=== PATIENT | male | born 1955 | race Caucasian/White ===

== ENCOUNTER 2017-06-25 12:14 | Emergency (ER) | payer BC ==
[2017-06-25 12:27] VITALS: BP 148/78
[2017-06-25] MEDS ORDERED: Sodium Chloride 0.9% 10 ML Syringe FLUSH PRN (12:33)
[2017-06-25] MEDS ORDERED: Nitroglycerin 0.4 MG Tab.SL SL PRN (12:33)
[2017-06-25] MEDS ORDERED: Aspirin 81 MG Tab.Chew PO ONE (12:33)
--- NOTE | 2017-06-25 12:40 | EDM.PDOC ---
ED HPI GENERAL MEDICAL PROBLEM - General Chief Complaint: Chest Pain Stated Complaint: Chest pain Time Seen by Provider: 06/25/17 12:20 Source of Information: Reports: Patient, RN Notes Reviewed History Limitations: Reports: No Limitations - History of Present Illness INITIAL COMMENTS - FREE TEXT/NARRATIVE: 62 year old male presents to the ED with complaints of substernal, sharp, chest pain that radiates into his left shoulder and upper arm. The symptoms started around 1030 this morning and have been constant. He rates the pain 9/10. He denies associated fever, chills, nausea, vomiting, shortness of breath, pleuritic chest pain, or diaphoresis. No aggravating or alleviating factors. He did not take any aspirin. He has a history of asthma, diagnosed in when he was 28 years old, and says for the past week he's had mild, intermittent chest pain when going outside in the smoky air. This was alleviated by coming inside. Today the pain is more sever and persistent. He denies history of heart problems or heart attack. He does not smoke. No history of CAD or high cholesterol. He says his only medical history is asthma. Chest Pain Score (Numeric/FACES): 8 - Related Data Allergies Allergy/AdvReac Type Severity Reaction Status Date / Time No Known Allergies Allergy Verified 06/25/17 12:20 Past Medical History Respiratory History: Reports: Asthma - Past Surgical History GI Surgical History: Reports: Cholecystectomy Social & Family History - Tobacco Use Smoking Status *Q: Never Smoker - Caffeine Use Caffeine Use: Reports: Coffee - Recreational Drug Use Recreational Drug Use: No ED ROS GENERAL - Review of Systems Review Of Systems: See Below Constitutional: Reports: No Symptoms. Denies: Fever, Chills, Diaphoresis Respiratory: Reports: No Symptoms. Denies: Shortness of Breath, Wheezing, Pleuritic Chest Pain, Cough Cardiovascular: Reports: Chest Pain. Denies: Dyspnea on Exertion, Edema, Lightheadedness, Syncope GI/Abdominal: Reports: No Symptoms. Denies: Abdominal Pain, Nausea, Vomiting ED EXAM, GENERAL - Physical Exam Exam: See Below Exam Limited By: No Limitations General Appearance: Alert, WD/WN, Anxious, Moderate Distress Respiratory/Chest: No Respiratory Distress, Lungs Clear, Normal Breath Sounds, No Accessory Muscle Use, Chest Non-Tender Cardiovascular: Normal Peripheral Pulses, Regular Rate, Rhythm, No Edema, No Murmur GI/Abdominal: Normal Bowel Sounds, Soft, Non-Tender Neurological: Alert, Oriented, Normal Cognition EKG INTERPRETATION EKG Date: 06/25/17 Time: 12:23 Rhythm: NSR Rate (Beats/Min): 79 [place]: Normal P-Wave: Present QRS: Normal ST-T: Other QT: Normal EKG Interpretation Comments: EKG read by Dr. Black. Reveals diffuse early repolarization pattern. T wave inversion AVL. ST depression in lead I. probable ischemia. Mild ST depression V4 -V6. Course - Vital Signs Last Recorded V/S: Last Vital Signs Temp 96.9 F 06/25/17 12:20 Pulse 84 06/25/17 12:20 Resp 23 H 06/25/17 12:20 BP 148/78 H 06/25/17 12:38 Pulse Ox 100 06/25/17 13:53 - Orders/Labs/Meds Orders: Active Orders 24 hr Category Date Time Status Cardiac Monitoring [RC] . DIRECTED Care 06/25/17 12:34 Active EKG 12 Lead [EKG Documentation Completion] [RC] Care 06/25/17 15:30 Active ASDIRECTED Peripheral IV Care [RC] . DIRECTED Care 06/25/17 12:33 Active Peripheral IV Insertion Adult [OM.PC] Stat Oth 06/25/17 12:33 Ordered Labs: Laboratory Tests 06/25/17 06/25/17 06/25/17 Range/Units 12:35 12:35 12:35 WBC 7.67 (4.23-9.07) K/mm3 RBC 4.99 (4.63-6.08) M/mm3 Hgb 15.5 (13.7-17.5) gm/L Hct 45.5 (40.1-51.0) % MCV 91.2 (79.0-92.2) fl MCH 31.1 (25.7-32.2) pg MCHC 34.1 (32.2-35.5) g/dl RDW Std Deviation 44.9 H (35.1-43.9) fL Plt Count 216 (163-337) K/mm3 MPV 10.2 (9.4-12.3) fl Neut % (Auto) 68.6 H (34.0-67.9) % Lymph % (Auto) 20.9 L (21.8-53.1) % [place] % (Auto) 8.2 (5.3-12.2) % Eos % (Auto) 1.6 (0.8-7.0) Baso % (Auto) 0.3 (0.1-1.2) % Neut # (Auto) 5.27 (1.78-5.38) K/mm3 Lymph # (Auto) 1.60 (1.32-3.57) K/mm3 [place] # (Auto) 0.63 (0.30-0.82) K/mm3 Eos # (Auto) 0.12 (0.04-0.54) K/mm3 Baso # (Auto) 0.02 (0.01-0.08) K/mm3 PT (8.0-13.0) SECONDS INR D-Dimer, Quantitative 0.20 (0.19-0.59) mg/L Sodium 141 (136-145) mEq/L Potassium 4.3 (3.5-5.1) mEq/L Chloride 105 (98-107) mEq/L Carbon Dioxide 29 (21-32) mEq/L Anion Gap 11.3 (5-15) BUN 16 (7-18) mg/dL Creatinine 1.3 (0.7-1.3) mg/dL Est Cr Clr Drug Dosing 61.14 mL/min Estimated GFR (MDRD) 56 (>60) mL/min BUN/Creatinine Ratio 12.3 L (14-18) Glucose 105 (80-115) mg/dL Calcium 9.0 (8.5-10.1) mg/dL Total Bilirubin 0.4 (0.2-1.0) mg/dL AST 8 L (15-37) U/L ALT 32 (16-63) U/L Alkaline Phosphatase 77 (46-116) U/L Troponin I 0.027 (0.00-0.056) ng/mL Total Protein 7.4 (6.4-8.2) g/dl Albumin 3.7 (3.4-5.0) g/dl Globulin 3.7 gm/dL Albumin/Globulin Ratio 1.0 (1-2) 06/25/17 06/25/17 Range/Units 12:35 15:30 WBC (4.23-9.07) K/mm3 RBC (4.63-6.08) M/mm3 Hgb (13.7-17.5) gm/L Hct (40.1-51.0) % MCV (79.0-92.2) fl MCH (25.7-32.2) pg MCHC (32.2-35.5) g/dl RDW Std Deviation (35.1-43.9) fL Plt Count (163-337) K/mm3 MPV (9.4-12.3) fl Neut % (Auto) (34.0-67.9) % Lymph % (Auto) (21.8-53.1) % [place] % (Auto) (5.3-12.2) % Eos % (Auto) (0.8-7.0) Baso % (Auto) (0.1-1.2) % Neut # (Auto) (1.78-5.38) K/mm3 Lymph # (Auto) (1.32-3.57) K/mm3 [place] # (Auto) (0.30-0.82) K/mm3 Eos # (Auto) (0.04-0.54) K/mm3 Baso # (Auto) (0.01-0.08) K/mm3 PT 10.3 (8.0-13.0) SECONDS INR 0.95 D-Dimer, Quantitative (0.19-0.59) mg/L Sodium (136-145) mEq/L Potassium (3.5-5.1) mEq/L Chloride (98-107) mEq/L Carbon Dioxide (21-32) mEq/L Anion Gap (5-15) BUN (7-18) mg/dL Creatinine (0.7-1.3) mg/dL Est Cr Clr Drug Dosing mL/min Estimated GFR (MDRD) (>60) mL/min BUN/Creatinine Ratio (14-18) Glucose (80-115) mg/dL Calcium (8.5-10.1) mg/dL Total Bilirubin (0.2-1.0) mg/dL AST (15-37) U/L ALT (16-63) U/L Alkaline Phosphatase (46-116) U/L Troponin I 0.110 H* (0.00-0.056) ng/mL Total Protein (6.4-8.2) g/dl Albumin (3.4-5.0) g/dl Globulin gm/dL Albumin/Globulin Ratio (1-2) Meds: Medications Discontinued Medications Generic Name Dose Route Start Last Admin Trade Name Freyeny PRN Reason Stop Dose Admin Albuterol Confirm 06/25/17 13:53 06/25/17 13:53 Proventil Neb Soln Administered 06/25/17 13:54 2.5 mg Dose Administration 2.5 mg .ROUTE .STK-MED ONE Aspirin 324 mg 06/25/17 12:33 06/25/17 12:39 Aspirin PO 06/25/17 12:34 324 mg ONETIME ONE Administration Enoxaparin Sodium 80 mg 06/25/17 16:26 06/25/17 16:35 Lovenox SUBCUT 06/25/17 16:27 80 mg ONETIME ONE Administration Sodium Chloride 250 mls @ 999 mls/hr 06/25/17 12:55 06/25/17 13:29 Normal Saline IV 06/25/17 13:10 999 mls/hr ONETIME ONE Administration Sodium Chloride 1,000 mls @ 150 mls/hr 06/25/17 12:55 06/25/17 13:47 Normal Saline IV 06/25/17 19:34 150 mls/hr ONETIME ONE Administration Nitroglycerin/Dextrose 25 mg in 250 mls @ 6 mls/hr 06/25/17 16:45 06/25/17 16 :48 Nitroglycerin 25 Mg/D5w 250 Ml IV 10 mcg/min TITRATE AMBROSIO 6 mls/hr Protocol Administration 10 MCG/MIN Lorazepam 0.5 mg 06/25/17 12:50 06/25/17 12:57 Ativan IVPUSH 06/25/17 12:51 0.5 mg ONETIME ONE Administration Lorazepam Confirm 06/25/17 12:53 06/25/17 13:32 Ativan Administered 06/25/17 12:54 Not Given Dose 2 mg .ROUTE .STK-MED ONE Nitroglycerin 0.4 mg 06/25/17 12:33 06/25/17 12:38 Nitrostat SL 0.4 mg Q5M PRN Administration Chest Pain Sodium Chloride 10 ml 06/25/17 12:33 06/25/17 13:32 Saline Flush FLUSH 10 ml ASDIRECTED PRN Administration Keep Vein Open - Re-Assessments/Exams Free Text/Narrative Re-Assessment/Exam: Initial workup included CBC, CMP, Troponin, d-dimer, and PT/INR. All initial labs were WNL. Initial EKG revealed ST depression in lateral leads, suspicious for ischemia. Dr. Black recommended treating with nitroglycerin due to possibility of IL. Patient was given Nitro 0.4mg SL x1 dose and droopped his BP in the 50s systolic. He was put in trendelenberg and BP quickly improved to low 100s. The patient then became very anxious and began to hyperventilate. The said he has a history of panic attacks. He was given 0.5mg of IV Ativan and symptoms improved quickly. 1620 Patient was kept for 3 hour cardiac rule-out. Repeat 3 hour troponin was drawn at 1530. Repeat troponin came back at 0.110. Repeat EKG read by Dr. Black and is essentially unchanged. Patient and family notified of findings and need for transfer. They do not have a preference regarding which hospital they would prefer. Questions answered to the best of my ability. I spoke to [facility] T[employer] Dr. Figueroa at [facility]. She recommended that we give Lovenox 1mg/kg x1 now and transfer. I then spoke to Hospitalist Dr. Hall who is the accepting provider. Patient will be transferred by ambulance to [facility]. Patient continues to have chest pain ranging from 1-4/10. Discussed with Dr. Black who recommends that we start a nitro drip at 10mcg/min. Departure - Departure Time of Disposition: 16:36 Disposition: DC/Tfer to Acute Hospital 02 Reason for Transfer *Q: Primary PCI Indicated Condition: Good Clinical Impression: NSTEMI (non-ST elevated myocardial infarction) Referrals: Noe Cedillo MD [Primary Care Provider] - Forms: ED Department Discharge - My Orders Last 24 Hours: My Active Orders 06/25/17 12:33 Peripheral IV Care [RC] . DIRECTED Peripheral IV Insertion Adult [OM.PC] Stat 06/25/17 12:34 Cardiac Monitoring [RC] . DIRECTED 06/25/17 15:30 EKG 12 Lead [EKG Documentation Completion] [RC] ASDIRECTED - Assessment/Plan Last 24 Hours: My Active Orders 06/25/17 12:33 Peripheral IV Care [RC] . DIRECTED Peripheral IV Insertion Adult [OM.PC] Stat 06/25/17 12:34 Cardiac Monitoring [RC] . DIRECTED 06/25/17 15:30 EKG 12 Lead [EKG Documentation Completion] [RC] ASDIRECTED
[2017-06-25] MEDS ORDERED: LORazepam 2 MG/ML MDV IVPUSH ONE (12:50)
[2017-06-25] MEDS ORDERED: LORazepam 2 MG/ML MDV ONE (12:53)
[2017-06-25] MEDS ORDERED: Sodium Chloride 0.9% 250 ML IV ONE (12:55)
[2017-06-25] MEDS ORDERED: Sodium Chloride 0.9% 1,000 ML IV ONE (12:55)
--- NOTE | 2017-06-25 13:19 | CR ---
Chest: Portable view of the chest is obtained. Comparison: Previous chest x-ray of 09/09/13. Heart size and mediastinum are within normal limits. Nodular density seen within the left mid to upper chest most likely due to overlapping lung markings. Lungs otherwise are clear. Bony structures are grossly intact. Impression: 1. Nodule within the mid to upper lung most likely due to confluence of lung markings although noncontrast chest CT is recommended to confirm. 2. Nothing acute is otherwise seen. Diagnostic code #9
[2017-06-25] MEDS ORDERED: Albuterol 0.083% 2.5 MG/3 ML Neb Soln ONE (13:53)
[2017-06-25] MEDS ORDERED: Enoxaparin 80 MG/0.8 ML Syringe SUBCUT ONE (16:26)
[2017-06-25] MEDS ORDERED: Nitroglycerin/D5W 25 MG/250 ML BOTTLE IV SCH (16:45)
== END 2017-06-25 17:03 ==
LOC: JD.ED 12:14
DX: I21.4 Non-ST elevation (NSTEMI) myocardial infarction (principal); Z90.49 Acquired absence of other specified parts of digestive tract
CPT/HCPCS: 36415; 71010; 80053; 84484; 85025; 85379; 85610; 93005; 94640; 96361; 96372; 96374; 96375; 99285; A9270; J1650; J2060; J7040; J7050

== ENCOUNTER 2017-07-19 16:39 | Emergency (ER) | payer BC ==
[2017-07-19 16:46] VITALS: BP 125/62
--- NOTE | 2017-07-19 16:49 | EDM.PDOC ---
ED HPI GENERAL MEDICAL PROBLEM - General Chief Complaint: Chest Pain Stated Complaint: CHEST PAIN Time Seen by Provider: 07/19/17 16:44 Source of Information: Reports: Patient History Limitations: Reports: No Limitations - History of Present Illness INITIAL COMMENTS - FREE TEXT/NARRATIVE: 62-year-old male presents to the ED for evaluation of central chest pain that occurred this morning and then is been off and on most of the day but for the most part a 1 or 2 out of 10. Feels very similar to what he experienced prior to having his heart attack 2 weeks ago. On July 07 he underwent stent placement [address] Verdugo [address] [facility]. One stent was placed through the right radial artery and the other through the right femoral artery. He remains on Brilenta and ASA daily. He did take a nitroglycerin this afternoon which made him feel awful. States he vomited actually from it did nothing for his chest pain. States she's been feeling really good since discharge from the hospital up until today. Denies any cough or sputum production. No fever or chills. Onset: Today Onset Date: 07/19/17 Onset Time: 08:30 Duration: Intermittent, Waxing/Waning (Pain seems to wax and wane between 1 and a 3.) Location: Reports: Chest (Central chest.) Quality: Reports: Ache Severity: Mild Improves with: Reports: None (Rates the pain is currently a 1 or 2 out of 10. Give glycerin made no difference.) Worsens with: Reports: None (Movement and exertion does not seem to make it worse either.) Context: Denies: Activity, Exercise, Lifting, Sick Contact, Trauma, Other Associated Symptoms: Reports: Chest Pain. Denies: Confusion, Cough, cough w sputum, Fever/Chills, Headaches, Loss of Appetite, Malaise, Nausea/Vomiting, Rash, Seizure, Shortness of Breath, Syncope, Weakness Treatments [employer] MANAGER: Reports: Nitroglycerin (Did not help his chest pain made him feel quite ill actually he vomited after taking it.) Epigastric Pain Score (Numeric/FACES): 2 - Related Data Allergies Allergy/AdvReac Type Severity Reaction Status Date / Time orange Allergy Shortness Verified 07/19/17 16:46 of Breath Penicillins Allergy Shortness Verified 07/19/17 16:46 of Breath Home Meds: Home Meds Aspirin [Ecotrin] 81 mg PO DAILY 07/05/17 [History] Doxazosin [Cardura] 4 mg PO DAILY 07/05/17 [History] Esomeprazole Magnesium [Nexium 24Hr] 10 mg PO BEDTIME 07/05/17 [History] Fluticasone Propionate [Flovent] 1 puff IH DAILY 07/05/17 [History] Lisinopril 2.5 mg PO DAILY 07/05/17 [History] Metoprolol Tartrate 12.5 mg PO BID 07/05/17 [History] Nitroglycerin 0.4 mg SL ASDIRECTED PRN 07/05/17 [History] Simvastatin [Zocor] 10 mg PO BEDTIME 07/05/17 [History] Ticagrelor [Brilinta] 90 mg PO BID 07/05/17 [History] Levalbuterol Tartrate [Xopenex Hfa] 2 puff INH Q4HR PRN 07/19/17 [History] Past Medical History Respiratory History: Reports: Asthma - Past Surgical History GI Surgical History: Reports: Cholecystectomy Social & Family History - Tobacco Use Smoking Status *Q: Never Smoker - Caffeine Use Caffeine Use: Reports: Coffee - Recreational Drug Use Recreational Drug Use: No - Living Situation & Occupation Living situation: Reports: Occupation: Employed ED ROS GENERAL - Review of Systems Review Of Systems: See Below Constitutional: Reports: No Symptoms. Denies: Fever, Chills, Malaise, Weakness , Fatigue, Decreased Appetite, Weight Loss HEENT: Reports: No Symptoms Respiratory: Reports: No Symptoms. Denies: Shortness of Breath, Wheezing, Pleuritic Chest Pain Cardiovascular: Reports: Chest Pain, Blood Pressure Problem (See history present illness). Denies: Claudication, Dyspnea on Exertion, Edema, Lightheadedness, Orthopnea ( the patient is been a little lower since being on medications now since the stent placement.), Palpitations Endocrine: Reports: Fatigue GI/Abdominal: Reports: No Symptoms (Little more fatigued than normal.) : Reports: No Symptoms Musculoskeletal: Reports: No Symptoms Skin: Reports: No Symptoms Neurological: Reports: No Symptoms Psychiatric: Reports: No Symptoms Hematologic/Lymphatic: Reports: No Symptoms Immunologic: Reports: No Symptoms ED EXAM, GENERAL - Physical Exam Exam: See Below Exam Limited By: No Limitations General Appearance: Alert, WD/WN, No Apparent Distress Eye Exam: Bilateral Eye: Normal Inspection Neck: Normal Inspection, Supple, Non-Tender, Full Range of Motion. No: Carotid Bruit, Lymphadenopathy (L), Lymphadenopathy (R) Respiratory/Chest: No Respiratory Distress, Lungs Clear, Normal Breath Sounds, No Accessory Muscle Use, Other (Mild tenderness on palpation over the fifth costochondral junction.) Cardiovascular: Normal Peripheral Pulses, Regular Rate, Rhythm, No Edema, No Gallop, No Murmur. No: JVD Peripheral Pulses: 2+: Posterior Tibial (L), Posterior Tibial (R), Dorsalis Pedis (L), Dorsalis Pedis (R) GI/Abdominal: Normal Bowel Sounds, Soft, Non-Tender, No Organomegaly, No Abnormal Bruit, No Mass, Pelvis Stable, Other (Has 2 large ecchymoses that are resolving right side of the abdominal wall from previous Lovenox injections.) Rectal (Males) Exam: Normal Exam Back Exam: Normal Inspection, Full Range of Motion. No: CVA Tenderness (L), CVA Tenderness (R) Extremities: Normal Inspection, Normal Range of Motion, Non-Tender, No Pedal Edema Neurological: Alert, Oriented, CN II-XII Intact, Normal Cognition Psychiatric: Normal Affect, Normal Mood Skin Exam: Warm, Dry, Intact, Normal Color, No Rash EKG INTERPRETATION EKG Date: 07/19/17 Time: 16:45 Rhythm: Other (Sinus arrhythmia with rates 60-70/m.) Rate (Beats/Min): 70 [place]: Normal P-Wave: Enlarged (Consider left atrial enlargement.) QRS: Other (RSR prime wave in V2 which is nonspecific) ST-T: Other (Diffuse early repolarization pattern) QT: Prolonged (Mildly prolonged) EKG Interpretation Comments: Borderline ECG Course - Vital Signs Last Recorded V/S: Last Vital Signs Temp 36.6 C 07/19/17 16:42 Pulse 64 07/19/17 16:42 Resp 18 07/19/17 16:42 BP 125/62 07/19/17 16:42 Pulse Ox 97 07/19/17 16:42 - Orders/Labs/Meds Orders: Active Orders 24 hr Category Date Time Status EKG Documentation Completion [RC] ASDIRECTED Care 07/19/17 16:49 Active Chest 1V Frontal [CR] Stat Exams 07/19/17 16:55 Taken Sodium Chloride 0.9% [Normal Saline] 1,000 ml Med 07/19/17 17:00 Active IV ASDIRECTED EKG 12 Lead [EK] Stat Ther 07/19/17 16:49 Ordered Medication Orders Sodium Chloride (Normal Saline) 1,000 mls @ 100 mls/hr IV ASDIRECTED AMBROSIO Last Admin: 07/19/17 17:04 Dose: 100 mls/hr Labs: Laboratory Tests 07/19/17 07/19/17 Range/Units 16:45 16:45 WBC 8.18 (4.23-9.07) K/mm3 RBC 4.70 (4.63-6.08) M/mm3 Hgb 14.5 (13.7-17.5) gm/L Hct 42.7 (40.1-51.0) % MCV 90.9 (79.0-92.2) fl MCH 30.9 (25.7-32.2) pg MCHC 34.0 (32.2-35.5) g/dl RDW Std Deviation 43.5 (35.1-43.9) fL Plt Count 250 (163-337) K/mm3 MPV 10.3 (9.4-12.3) fl Neutrophils % (Manual) 73 H (40-60) % Band Neutrophils % 0 (0-10) % Lymphocytes % (Manual) 19 L (20-40) % Atypical Lymphs % 0 % Monocytes % (Manual) 6 (2-10) % Eosinophils % (Manual) 1 (0.8-7.0) % Basophils % (Manual) 0 L (0.2-1.2) Myelocytes % 1 Toxic Granulation 1+ slight Platelet Estimate Adequate Plt Morphology Comment Normal Anisocytosis 1+ slight Microcytosis 1+ slight Macrocytosis 1+ slight RBC Morph Comment Abnormal Sodium 140 (136-145) mEq/L Potassium 4.3 (3.5-5.1) mEq/L Chloride 104 (98-107) mEq/L Carbon Dioxide 27 (21-32) mEq/L Anion Gap 13.3 (5-15) BUN 20 H (7-18) mg/dL Creatinine 1.3 (0.7-1.3) mg/dL Est Cr Clr Drug Dosing 61.14 mL/min Estimated GFR (MDRD) 56 (>60) mL/min BUN/Creatinine Ratio 15.4 (14-18) Glucose 99 (80-115) mg/dL Calcium 9.3 (8.5-10.1) mg/dL Magnesium 2.2 (1.8-2.4) mg/dl Total Bilirubin 0.4 (0.2-1.0) mg/dL AST 20 (15-37) U/L ALT 33 (16-63) U/L Alkaline Phosphatase 74 (46-116) U/L CK-MB (CK-2) 0.9 (0-3.6) ng/ml Troponin I < 0.017 (0.00-0.056) ng/mL NT-Pro-B Natriuret Pep 88 (0-125) pg/mL Total Protein 7.4 (6.4-8.2) g/dl Albumin 3.7 (3.4-5.0) g/dl Globulin 3.7 gm/dL Albumin/Globulin Ratio 1.0 (1-2) Meds: Medications Generic Name Dose Route Start Last Admin Trade Name Freq PRN Reason Stop Dose Admin Sodium Chloride 1,000 mls @ 100 mls/hr 07/19/17 17:00 07/19/17 17:04 Normal Saline IV 100 mls/hr ASDIRECTED AMBROSIO Administration - Radiology Interpretation Free Text/Narrative:: 62-year-old male presents to the ED because he's been having intermittent central chest discomfort since early this morning it's waxing and waning to some degree. He is now 2 weeks post stent placement [address] Verdugo at [facility]. He is unsure which vessels were stented. He's on Brilenta and aspirin daily. hasn't missed any of his medication. Examination reveals no abnormalities lungs are clear chest no chest wall tenderness elicited. ECG shows sinus arrhythmia pattern at 70/m primarily with no signs of ischemic changes. Plan IV normal saline 100 mils per hour. At present his pain is 1-2 out of 10. I will withhold nitroglycerin drip as he took Benadryl ingestion tablet earlier this afternoon and did not help his chest pain plus beta quite ill. Chest there are this is noncardiac related. One view chest x- ray to be done with lab work to include cardiac markers and serum magnesium level etc. - Re-Assessments/Exams Free Text/Narrative Re-Assessment/Exam: 07/19/17 17:44 Labs are back. White count is 8.18 with differential pending. Hemoglobin is 14.5 hematocrit is 42.7 platelet are normal at 250,000. Sodium was 140 potassium 4.3. Chloride 104 bicarbonate 27. Anion gap normal at 13.3 be when his 20 creatinine 1.3 with an EGFR 56. Glucose was 99 calcium 9.3 magnesium good at 2.2. Liver function is normal. CK-MB is 0.9 with troponin is less than 0.017. BNP is 88. Chest x-ray is done and is within normal limits. There is no effusion or signs of vascular congestion. Discussed the findings with the patient and advised or reassured that it does not appear to be is heart involvement. However sometimes the epicardium of the heart can be irritated for several weeks after stent placement. Intermittent pain. He has a history of reflux and is possibility of esophageal spasm causing the discomfort intermittently as well. Elbow tends to be well-controlled with Nexium daily. Offered him tramadol tablets for pain relief if needed but he declined. He'll use Tylenol if needed. This personal care physician if any further problems occur. Departure - Departure Time of Disposition: 17:51 Disposition: Home, Self-Care 01 Reason for Transfer *Q: Other Condition: Good Clinical Impression: Atypical chest pain Instructions: Nonspecific Chest Pain Referrals: PCP,None [Primary Care Provider] - Forms: ED Department Discharge Additional Instructions: Evaluation the emergency room today in regards to intermittent central chest pain off and on throughout the day today. Pain is rated anywhere from 1-3 at times. Cardiac workup carried out due to recent stents 23 weeks ago. ECG is essentially within normal limits showing no signs of ischemia or heart attack. Chest x-rays within normal limits and labs proved to be normal as well in particular cardiac enzymes are 0. No other signs of infection or inflammation are evident on lab testing either. Therefore appears that current chest pain is noncardiac in origin although some patients to expense intermittent chest pains after having stents placed for a month or two afterwards. At present time I would not change any of your medications or treatment plan. May use Tylenol for discomfort or may continue to use Maalox or Mylanta to see if the food pipe is the culprit. - My Orders Last 24 Hours: My Active Orders 07/19/17 16:49 EKG Documentation Completion [RC] ASDIRECTED EKG 12 Lead [EK] Stat 07/19/17 16:55 Chest 1V Frontal [CR] Stat 07/19/17 17:00 Sodium Chloride 0.9% [Normal Saline] 1,000 ml IV ASDIRECTED - Assessment/Plan Last 24 Hours: My Active Orders 07/19/17 16:49 EKG Documentation Completion [RC] ASDIRECTED EKG 12 Lead [EK] Stat 07/19/17 16:55 Chest 1V Frontal [CR] Stat 07/19/17 17:00 Sodium Chloride 0.9% [Normal Saline] 1,000 ml IV ASDIRECTED
[2017-07-19] MEDS ORDERED: Sodium Chloride 0.9% 1,000 ML IV SCH (17:00)
--- NOTE | 2017-07-20 07:32 | CR ---
Chest: Portable view of the chest was obtained. Comparison: Previous chest x-ray of 06/25/17. Heart size and mediastinum are within normal limits. Lungs are clear. Bony structures are grossly intact. Nodule seen previously not definitely appreciated on current study. Impression: 1. Nothing acute is appreciated on portable chest x-ray. Diagnostic code #1
== END 2017-07-19 17:58 | disposition home or self-care (01) ==
LOC: JD.ED 16:39
DX: R07.89 Other chest pain (principal); J45.909 Unspecified asthma, uncomplicated; Z91.018 Allergy to other foods; Z88.0 Allergy status to penicillin; Z79.82 Long term (current) use of aspirin; Z79.899 Other long term (current) drug therapy
CPT/HCPCS: 36415; 71010; 80053; 82553; 83735; 83880; 84484; 85025; 93005; 96360; 99285; J7040; 93010

== ENCOUNTER 2017-08-27 12:19 | Emergency (ER) | payer BC ==
[2017-08-27 12:27] VITALS: BP 132/68
[2017-08-27] MEDS ORDERED: Sodium Chloride 0.9% 10 ML Syringe FLUSH PRN (12:28)
--- NOTE | 2017-08-27 13:01 | EDM.PDOC ---
ED HPI GENERAL MEDICAL PROBLEM - General Chief Complaint: Chest Pain Stated Complaint: CHEST PAINS Time Seen by Provider: 08/27/17 12:26 Source of Information: Reports: Patient, Old Records (recent ER visits) History Limitations: Reports: No Limitations - History of Present Illness INITIAL COMMENTS - FREE TEXT/NARRATIVE: 62-year-old male presents for evaluation and treatment of chest pain. Patient reports he has had intermittent chest pain since Monday. States is located on the right side of his chest and also in his left trapezius. Reports he's had chest pain since around 6:30 this morning, lasted 4-5 hours. Currently has very little chest pain. He denies any associated symptoms of nausea, vomiting, shortness of breath, diaphoresis, cough, fevers, chills, leg pain or swelling. Patient had a non-STEMI in June. He was sent to [facility] in [place] and had 2 stents placed. He has been doing cardiac rehabilitation since. Currently on Brilenta, 81 mg aspirin, Zocor, losartan, metoprolol and nitroglycerin as needed. He states he's been taking his medications as prescribed. He did not take any nitroglycerin prior to arrival in the ER. Patient reports that on he did move about a 250 pound barrel. He states that he pushed it and did not lifted. Did not have pain immediately but the pain did start Monday. Primary care provider is Dr. Morales. Location: Reports: Chest Chest Pain Score (Numeric/FACES): 5 - Related Data Allergies Allergy/AdvReac Type Severity Reaction Status Date / Time orange Allergy Shortness Verified 08/27/17 12:23 of Breath Penicillins Allergy Shortness Verified 08/27/17 12:23 of Breath Home Meds: Home Meds Aspirin [Ecotrin] 81 mg PO DAILY 07/05/17 [History] Doxazosin [Cardura] 4 mg PO DAILY 07/05/17 [History] Esomeprazole Magnesium [Nexium 24Hr] 10 mg PO BEDTIME 07/05/17 [History] Fluticasone Propionate [Flovent] 1 puff IH DAILY 07/05/17 [History] Metoprolol Tartrate 12.5 mg PO BID 07/05/17 [History] Nitroglycerin 0.4 mg SL ASDIRECTED PRN 07/05/17 [History] Simvastatin [Zocor] 10 mg PO BEDTIME 07/05/17 [History] Ticagrelor [Brilinta] 90 mg PO BID 07/05/17 [History] Levalbuterol Tartrate [Xopenex Hfa] 2 puff INH Q4HR PRN 07/19/17 [History] Losartan [Cozaar] 25 mg PO DAILY 08/01/17 [History] Past Medical History Cardiovascular History: Reports: CAD, High Cholesterol, Stents Respiratory History: Reports: Asthma Gastrointestinal History: Reports: GERD - Past Surgical History GI Surgical History: Reports: Cholecystectomy Social & Family History - Tobacco Use Smoking Status *Q: Never Smoker Second Hand Smoke Exposure: No - Caffeine Use Caffeine Use: Reports: Coffee - Recreational Drug Use Recreational Drug Use: No - Living Situation & Occupation Living situation: Reports: Occupation: Employed ED ROS GENERAL - Review of Systems Review Of Systems: See Below Constitutional: Denies: Fever, Diaphoresis Respiratory: Denies: Shortness of Breath, Cough Cardiovascular: Reports: Chest Pain GI/Abdominal: Denies: Abdominal Pain, Nausea, Vomiting Musculoskeletal: Denies: Leg Pain ED EXAM, GENERAL - Physical Exam Exam: See Below Exam Limited By: No Limitations General Appearance: Alert, WD/WN, No Apparent Distress Eye Exam: Bilateral Eye: Normal Inspection Ears: Normal External Exam Nose: Normal Inspection Throat/Mouth: Normal Inspection, Normal Voice, No Airway Compromise Neck: Normal Inspection Respiratory/Chest: No Respiratory Distress, Lungs Clear, Normal Breath Sounds, Other (chest wall tenderness right inferior sternum ) Cardiovascular: Normal Peripheral Pulses, Regular Rate, Rhythm, No Murmur GI/Abdominal: Soft, Non-Tender Extremities: Normal Inspection, No Pedal Edema Neurological: Alert, Oriented, Normal Cognition Psychiatric: Normal Affect, Normal Mood Skin Exam: Warm, Dry, Normal Color EKG INTERPRETATION EKG Date: 08/27/17 Time: 12:30 Rhythm: NSR Rate (Beats/Min): 76 [place]: Normal P-Wave: Present QRS: Normal ST-T: Normal QT: Normal Comparison: No Change EKG Interpretation Comments: NSR at 76 bpm. No acute changes. No significant change from 07-19-17 EKG. Reviewed by myself and Dr. Kristel Pichardo. Course - Vital Signs Last Recorded V/S: Last Vital Signs Temp 36.3 C 08/27/17 12:23 Pulse 76 08/27/17 12:23 Resp 20 08/27/17 12:23 BP 132/68 08/27/17 12:23 Pulse Ox 98 08/27/17 12:23 - Orders/Labs/Meds Labs: Laboratory Tests 08/27/17 08/27/17 Range/Units 12:25 12:25 WBC 8.43 (4.23-9.07) K/mm3 RBC 4.95 (4.63-6.08) M/mm3 Hgb 15.0 (13.7-17.5) gm/L Hct 45.7 (40.1-51.0) % MCV 92.3 H (79.0-92.2) fl MCH 30.3 (25.7-32.2) pg MCHC 32.8 (32.2-35.5) g/dl RDW Std Deviation 45.5 H (35.1-43.9) fL Plt Count 241 (163-337) K/mm3 MPV 10.3 (9.4-12.3) fl Neutrophils % (Manual) 77 H (40-60) % Band Neutrophils % 0 (0-10) % Lymphocytes % (Manual) 17 L (20-40) % Atypical Lymphs % 0 % Monocytes % (Manual) 6 (2-10) % Eosinophils % (Manual) 0 L (0.8-7.0) % Basophils % (Manual) 0 L (0.2-1.2) Platelet Estimate Adequate RBC Morph Comment Normal Sodium 140 (136-145) mEq/L Potassium 4.2 (3.5-5.1) mEq/L Chloride 102 (98-107) mEq/L Carbon Dioxide 28 (21-32) mEq/L Anion Gap 14.2 (5-15) BUN 18 (7-18) mg/dL Creatinine 1.4 H (0.7-1.3) mg/dL Est Cr Clr Drug Dosing 56.77 mL/min Estimated GFR (MDRD) 51 (>60) mL/min BUN/Creatinine Ratio 12.9 L (14-18) Glucose 168 H (80-115) mg/dL Calcium 9.2 (8.5-10.1) mg/dL Total Bilirubin 0.5 (0.2-1.0) mg/dL AST 23 (15-37) U/L ALT 33 (16-63) U/L Alkaline Phosphatase 77 (46-116) U/L CK-MB (CK-2) 0.9 (0-3.6) ng/ml Troponin I < 0.017 (0.00-0.056) ng/mL Total Protein 7.6 (6.4-8.2) g/dl Albumin 3.9 (3.4-5.0) g/dl Globulin 3.7 gm/dL Albumin/Globulin Ratio 1.1 (1-2) Meds: Medications Discontinued Medications Generic Name Dose Route Start Last Admin Trade Name Freq PRN Reason Stop Dose Admin Sodium Chloride 10 ml 08/27/17 12:28 08/27/17 12:50 Saline Flush FLUSH 10 ml ASDIRECTED PRN Administration Keep Vein Open - Radiology Interpretation Free Text/Narrative:: chest xray 1 view shows no acute intrathoracic process. No change from 07-19-17 xray. - Re-Assessments/Exams Free Text/Narrative Re-Assessment/Exam: 08/27/17 13:42 I reviewed the ekg, labs and chest xray with the patient. I feel his chest pain today is likely muscular skeletal. He has declined pain medication since entering the ER. Reports he has very little to no pain currently. Will discharge the patient home at this time. Follow-up with PCP. He has follow- up with cardiology in October Discharge instructions as documented . Departure - Departure Time of Disposition: 13:43 Disposition: Home, Self-Care 01 Condition: Good Clinical Impression: Chest wall muscle strain Instructions: Chest Wall Pain, [id number] Referrals: Noe Cedillo MD [Primary Care Provider] - Forms: ED Department Discharge Additional Instructions: [id number] Tylenol as needed for pain relief. Recommend using heat to the sore areas. Expect the area to be sore the next few days. Follow-up with your primary care provider for recheck of your symptoms within 2 weeks. Please return to the ER if your symptoms change or worsen.
--- NOTE | 2017-08-28 08:32 | CR ---
Chest: Portable view of the chest was obtained. Comparison: Prior chest x-ray of 07/19/17. Heart size and mediastinum are normal. Lungs are clear with no acute infiltrates. Surgical clips are seen within the upper right abdomen. Bony structures are grossly intact. Impression: 1. Nothing acute is identified on portable chest x-ray. Diagnostic code #2
== END 2017-08-27 14:05 | disposition home or self-care (01) ==
LOC: JD.ED 12:19
DX: S29.011A Strain of muscle and tendon of front wall of thorax, initial encounter (principal); E78.00 Pure hypercholesterolemia, unspecified; Z88.0 Allergy status to penicillin; Z91.018 Allergy to other foods; Z79.899 Other long term (current) drug therapy; X50.9XXA Other and unspecified overexertion or strenuous movements or postures, initial encounter
CPT/HCPCS: 36415; 71010; 80053; 82553; 84484; 85025; 93005; 99285; J7050; 93010; 99283-25

== ENCOUNTER 2019-03-17 12:40 | Emergency (ER) | payer MEDICARE, BC ==
[2019-03-17 13:01] VITALS: BP 138/69
[2019-03-17] MEDS ORDERED: Sodium Chloride 0.9% 10 ML Syringe FLUSH PRN (13:44)
--- NOTE | 2019-03-17 16:10 | EDM.PDOC ---
ED HPI GENERAL MEDICAL PROBLEM - General Chief Complaint: Chest Pain Stated Complaint: CHEST PAIN Time Seen by Provider: 03/17/19 13:25 Source of Information: Reports: Patient History Limitations: Reports: No Limitations - History of Present Illness INITIAL COMMENTS - FREE TEXT/NARRATIVE: 63-year-old male presents for evaluation and treatment of chest pain and shortness of breath. Reports symptoms started yesterday around 11 AM. Reports symptoms of lightheadedness, fatigue, shortness of breath and chest pain. States that he has a bitter taste in his mouth. He denies any vomiting today but states he did vomit yesterday around 0900. Patient feels that this may be due to sprain. 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 Patient has a history of IN and stents placed. Middle Chest Pain Score (Numeric/FACES): 6 - Related Data Allergies Allergy/AdvReac Type Severity Reaction Status Date / Time orange Allergy Shortness Verified 03/17/19 13:01 of Breath Penicillins Allergy Shortness Verified 03/17/19 13:01 of Breath Home Meds: Home Meds Aspirin [Ecotrin] 81 mg PO DAILY 07/05/17 [History] Doxazosin [Cardura] 4 mg PO DAILY 07/05/17 [History] Esomeprazole Magnesium [Nexium 24Hr] 10 mg PO BEDTIME 07/05/17 [History] Fluticasone Propionate [Flovent] 1 puff IH DAILY 07/05/17 [History] Metoprolol Tartrate 12.5 mg PO BID 07/05/17 [History] Nitroglycerin 0.4 mg SL ASDIRECTED PRN 07/05/17 [History] Simvastatin [Zocor] 10 mg PO BEDTIME 07/05/17 [History] Ticagrelor [Brilinta] 90 mg PO BID 07/05/17 [History] Levalbuterol Tartrate [Xopenex Hfa] 2 puff INH Q4HR PRN 07/19/17 [History] Losartan [Cozaar] 25 mg PO DAILY 08/01/17 [History] Past Medical History Cardiovascular History: Reports: CAD, High Cholesterol, Hypertension, IN, Stents Respiratory History: Reports: Asthma Gastrointestinal History: Reports: GERD - Past Surgical History GI Surgical History: Reports: Appendectomy, Cholecystectomy Social & Family History - Tobacco Use Smoking Status *Q: Never Smoker - Caffeine Use Caffeine Use: Reports: Coffee - Recreational Drug Use Recreational Drug Use: No - Living Situation & Occupation Living situation: Reports: Occupation: Employed ED ROS GENERAL - Review of Systems Review Of Systems: See Below Constitutional: Reports: Chills, Fatigue. Denies: Diaphoresis Respiratory: Reports: Shortness of Breath Cardiovascular: Reports: Chest Pain, Lightheadedness GI/Abdominal: Reports: Vomiting ED EXAM, GENERAL - Physical Exam Exam: See Below Exam Limited By: No Limitations General Appearance: Alert, WD/WN, No Apparent Distress Ears: Normal External Exam Nose: Normal Inspection Throat/Mouth: Normal Inspection, Normal Lips, Normal Voice, No Airway Compromise Neck: Normal Inspection Respiratory/Chest: No Respiratory Distress, Lungs Clear, Normal Breath Sounds Cardiovascular: Normal Peripheral Pulses, Regular Rate, Rhythm, No Murmur Neurological: Alert, Oriented, Normal Cognition Psychiatric: Normal Affect, Normal Mood Skin Exam: Warm, Dry, Normal Color EKG INTERPRETATION EKG Date: 03/17/19 Time: 13:31 Rhythm: NSR Rate (Beats/Min): 66 [place]: Normal P-Wave: Present QRS: Normal ST-T: Normal QT: Normal EKG Interpretation Comments: NSR at 66 bpm. RSR' V1 and V2 - normal variant. Left atrial hypertrophy. Reviewed by myself and Dr. Black. Course - Vital Signs Last Recorded V/S: Last Vital Signs Temp 97.7 F 03/17/19 12:55 Pulse 64 03/17/19 12:55 Resp 18 03/17/19 12:55 BP 138/69 03/17/19 12:55 Pulse Ox 98 03/17/19 12:55 - Orders/Labs/Meds Labs: Laboratory Tests 03/17/19 03/17/19 03/17/19 Range/Units 13:50 13:50 13:50 WBC 6.42 (4.23-9.07) K/mm3 RBC 5.31 (4.63-6.08) M/mm3 Hgb 16.1 (13.7-17.5) gm/L Hct 48.4 (40.1-51.0) % MCV 91.1 (79.0-92.2) fl MCH 30.3 (25.7-32.2) pg MCHC 33.3 (32.2-35.5) g/dl RDW Std Deviation 47.3 H (35.1-43.9) fL Plt Count 244 (163-337) K/mm3 MPV 10.4 (9.4-12.3) fl Neut % (Auto) 73.0 H (34.0-67.9) % Lymph % (Auto) 18.5 L (21.8-53.1) % [place] % (Auto) 7.0 (5.3-12.2) % Eos % (Auto) 0.8 (0.8-7.0) Baso % (Auto) 0.2 (0.1-1.2) % Neut # (Auto) 4.69 (1.78-5.38) K/mm3 Lymph # (Auto) 1.19 L (1.32-3.57) K/mm3 [place] # (Auto) 0.45 (0.30-0.82) K/mm3 Eos # (Auto) 0.05 (0.04-0.54) K/mm3 Baso # (Auto) 0.01 (0.01-0.08) K/mm3 PT (9.5-12.1) SECONDS INR APTT (24-31) SECONDS D-Dimer, Quantitative 0.36 (0.19-0.50) mg/L Sodium 140 (136-145) mEq/L Potassium 4.1 (3.5-5.1) mEq/L Chloride 104 (98-107) mEq/L Carbon Dioxide 26 (21-32) mEq/L Anion Gap 14.1 (5-15) BUN 14 (7-18) mg/dL Creatinine 1.3 (0.7-1.3) mg/dL Est Cr Clr Drug Dosing 60.34 mL/min Estimated GFR (MDRD) 55 (>60) mL/min BUN/Creatinine Ratio 10.8 L (14-18) Glucose 110 (80-115) mg/dL Calcium 9.2 (8.5-10.1) mg/dL Total Bilirubin 0.5 (0.2-1.0) mg/dL AST 23 (15-37) U/L ALT 35 (16-63) U/L Alkaline Phosphatase 77 (46-116) U/L Troponin I < 0.017 (0.00-0.056) ng/mL Total Protein 7.9 (6.4-8.2) g/dl Albumin 3.8 (3.4-5.0) g/dl Globulin 4.1 gm/dL Albumin/Globulin Ratio 0.9 L (1-2) 03/17/19 Range/Units 13:50 WBC (4.23-9.07) K/mm3 RBC (4.63-6.08) M/mm3 Hgb (13.7-17.5) gm/L Hct (40.1-51.0) % MCV (79.0-92.2) fl MCH (25.7-32.2) pg MCHC (32.2-35.5) g/dl RDW Std Deviation (35.1-43.9) fL Plt Count (163-337) K/mm3 MPV (9.4-12.3) fl Neut % (Auto) (34.0-67.9) % Lymph % (Auto) (21.8-53.1) % [place] % (Auto) (5.3-12.2) % Eos % (Auto) (0.8-7.0) Baso % (Auto) (0.1-1.2) % Neut # (Auto) (1.78-5.38) K/mm3 Lymph # (Auto) (1.32-3.57) K/mm3 [place] # (Auto) (0.30-0.82) K/mm3 Eos # (Auto) (0.04-0.54) K/mm3 Baso # (Auto) (0.01-0.08) K/mm3 PT 10.3 (9.5-12.1) SECONDS INR 0.94 APTT 27 (24-31) SECONDS D-Dimer, Quantitative (0.19-0.50) mg/L Sodium (136-145) mEq/L Potassium (3.5-5.1) mEq/L Chloride (98-107) mEq/L Carbon Dioxide (21-32) mEq/L Anion Gap (5-15) BUN (7-18) mg/dL Creatinine (0.7-1.3) mg/dL Est Cr Clr Drug Dosing mL/min Estimated GFR (MDRD) (>60) mL/min BUN/Creatinine Ratio (14-18) Glucose (80-115) mg/dL Calcium (8.5-10.1) mg/dL Total Bilirubin (0.2-1.0) mg/dL AST (15-37) U/L ALT (16-63) U/L Alkaline Phosphatase (46-116) U/L Troponin I (0.00-0.056) ng/mL Total Protein (6.4-8.2) g/dl Albumin (3.4-5.0) g/dl Globulin gm/dL Albumin/Globulin Ratio (1-2) Meds: Medications Discontinued Medications Generic Name Dose Route Start Last Admin Trade Name Freq PRN Reason Stop Dose Admin Sodium Chloride 10 ml 03/17/19 13:44 03/17/19 13:55 Saline Flush FLUSH 10 ml ASDIRECTED PRN Administration Keep Vein Open - Radiology Interpretation Free Text/Narrative:: Chest: 2 views of the chest were obtained. Comparison: Prior chest x-ray of 09/10/18. Heart size and mediastinum are within normal limits. Small scar is seen within the lingula. Lungs show no acute parenchymal change. Bony structures are within normal limits for the patient's age. Impression: 1. Incidental finding. Nothing acute is appreciated on 2 view chest x-ray. - Re-Assessments/Exams Free Text/Narrative Re-Assessment/Exam: 03/17/19 16:37 Reviewed the lab and EKG and imaging with the patient. Will discharge home. Patient in no distress. Discharge instructions as documented. Departure - Departure Time of Disposition: 16:37 Disposition: Home, Self-Care 01 Condition: Fair Clinical Impression: Inhalation injury due to chemical Referrals: Noe Cedillo MD [Primary Care Provider] - Forms: ED Department Discharge Additional Instructions: make sure you are drinking plenty of fluids. [id number] Tylenol or Motrin as needed for discomfort. Follow-up with you primary care provider if not much better in 1 week. Please return to the ER if your symptoms change or worsen.
--- NOTE | 2019-03-17 19:34 | CR ---
Chest: Two views of the chest were obtained. Comparison: Prior chest x-ray of 09/10/18. Heart size and mediastinum are within normal limits. Small scar is seen within the lingula. Lungs show no acute parenchymal change. Bony structures are within normal limits for the patient's age. Impression: 1. Incidental finding. Nothing acute is appreciated on two-view chest x-ray. Diagnostic code #2
== END 2019-03-17 16:44 | disposition home or self-care (01) ==
LOC: JD.ED 12:40
DX: T59.91XA Toxic effect of unspecified gases, fumes and vapors, accidental (unintentional), initial encounter (principal); R06.02 Shortness of breath; R07.89 Other chest pain; R42 Dizziness and giddiness; R53.83 Other fatigue; I25.10 Atherosclerotic heart disease of native coronary artery without angina pectoris; J45.909 Unspecified asthma, uncomplicated; K21.9 Gastro-esophageal reflux disease without esophagitis; E78.00 Pure hypercholesterolemia, unspecified; I10 Essential (primary) hypertension; I25.2 Old myocardial infarction; Z95.5 Presence of coronary angioplasty implant and graft; Z88.0 Allergy status to penicillin; Z79.82 Long term (current) use of aspirin; Z79.899 Other long term (current) drug therapy; Z91.018 Allergy to other foods
CPT/HCPCS: 36415; 71046; 71046-26; 80053; 84484; 85025; 85379; 85610; 85730; 93005; 93010; 99283; 99285-25

== ENCOUNTER 2019-07-08 15:38 | Inpatient (IN) | payer MEDICARE, BC ==
[2019-07-08] MEDS ORDERED: metroNIDAZOLE/Normal Saline 500 MG in Premix Bag 1 BAG IV ONE (16:26)
[2019-07-08] MEDS ORDERED: Levofloxacin/Dextrose 5%-Water 750 MG in Premix Bag 1 BAG IV ONE (16:26)
--- NOTE | 2019-07-08 17:05 | EDM.PDOC ---
ED HPI GENERAL MEDICAL PROBLEM - General Chief Complaint: Abdominal Pain Stated Complaint: ABDOMINAL PAIN Time Seen by Provider: 07/08/19 16:05 Source of Information: Reports: Patient History Limitations: Reports: No Limitations - History of Present Illness INITIAL COMMENTS - FREE TEXT/NARRATIVE: Patient is a 64-year-old male who presents to the ED today after being evaluated over the [facility] for left sided lower abdominal discomfort with fever, chills, and rigors that started on Monday. Patient's had no documented fever since onset Monday. Had a CT of the abdomen and pelvis revealed a 6 mm calculus within the left ureter along the distal aspect with hydronephrosis and also acute diverticulitis of the sigmoid colon with small amount of extraluminal air without definite abscess formation suggesting microperforation. Patient has had some slight dysuria with onset of pain. No hematuria. No nausea or vomiting, chest pain, shortness of breath, and/or any additional complaints. Of note patient did have diarrhea approximately one week ago and has been taking Pepto-Bismol with complete resolution. He has no history of constipation and states he does not have to strain to have a bowel movement. He was evaluated this past week by his television journalist with no new changes noted. He denies any bloody stool, dark tarry stool, or recent antibiotic use. Generalized Pain Score (Numeric/FACES): 0 - Related Data Allergies Allergy/AdvReac Type Severity Reaction Status Date / Time isopropyl alcohol Allergy Shortness Verified 07/08/19 19:59 of Breath latex Allergy Cannot Verified 07/08/19 18:06 Remember orange Allergy Shortness Verified 07/08/19 15:50 of Breath Penicillins Allergy Shortness Verified 07/08/19 15:50 of Breath perfume Allergy Shortness Verified 07/08/19 19:59 of Breath Home Meds: Home Meds Doxazosin [Cardura] 8 mg PO BEDTIME 07/05/17 [History] Esomeprazole Magnesium [Nexium 24Hr] 10 mg PO BEDTIME 07/05/17 [History] Fluticasone Propionate [Flovent] 1 puff IH DAILY 07/05/17 [History] Metoprolol Tartrate 12.5 mg PO BID 07/05/17 [History] Simvastatin [Zocor] 20 mg PO BEDTIME 07/05/17 [History] Ticagrelor [Brilinta] 90 mg PO BID 07/05/17 [History] Levalbuterol Tartrate [Xopenex Hfa] 2 puff INH Q4HR PRN 07/19/17 [History] Losartan [Cozaar] 25 mg PO BEDTIME 08/01/17 [History] Levofloxacin 750 mg PO DAILY #9 tablet 07/09/19 [Rx] metroNIDAZOLE [Metronidazole] 500 mg PO Q8H #27 tablet 07/09/19 [Rx] Past Medical History Cardiovascular History: Reports: CAD, High Cholesterol, Hypertension, [place], Stents Respiratory History: Reports: Asthma Gastrointestinal History: Reports: GERD - Past Surgical History GI Surgical History: Reports: Appendectomy, Cholecystectomy Social & Family History - Tobacco Use Smoking Status *Q: Never Smoker - Caffeine Use Caffeine Use: Reports: Coffee - Living Situation & Occupation Living situation: Reports: Occupation: Employed ED ROS GENERAL - Review of Systems Review Of Systems: ROS reveals no pertinent complaints other than HPI. ED EXAM, GI/ABD - Physical Exam Exam: See Below Exam Limited By: No Limitations General Appearance: Alert, WD/WN, No Apparent Distress Eyes: Bilateral: Normal Appearance Ears: Hearing Grossly Normal Nose: Normal Inspection Throat/Mouth: Normal Voice, No Airway Compromise Head: Atraumatic, Normocephalic Neck: Normal Inspection, Supple Respiratory/Chest: No Respiratory Distress, Lungs Clear, Normal Breath Sounds, Chest Non-Tender Cardiovascular: Normal Peripheral Pulses, Regular Rate, Rhythm, No Murmur GI/Abdominal Exam: Normal Bowel Sounds, Soft, No Organomegaly, No Distention, Tender (Lungs the left upper and lower quadrant) (Male) Exam: Deferred Rectal (Males) Exam: Deferred Back Exam: Normal Inspection. No: CVA Tenderness (L), CVA Tenderness (R) Extremities: Normal Inspection, Non-Tender Neurological: Alert, Oriented, CN II-XII Intact, Normal Cognition, No Motor/ Sensory Deficits Psychiatric: Normal Affect, Normal Mood Skin Exam: Warm, Dry, Intact, Normal Color, No Rash Course - Vital Signs Last Recorded V/S: Last Vital Signs Temp 98.1 F 07/09/19 16:00 Pulse 77 07/09/19 08:21 Resp 18 07/09/19 16:00 BP 114/70 07/09/19 16:00 Pulse Ox 97 07/09/19 16:00 - Orders/Labs/Meds Meds: Medications Discontinued Medications Generic Name Dose Route Start Last Admin Trade Name Darian PRN Reason Stop Dose Admin Albuterol Confirm 07/08/19 18:51 07/08/19 18:59 Proventil Neb Soln Administered 07/08/19 18:52 2.5 mg Dose Administration 2.5 mg .ROUTE .STK-MED ONE Albuterol Confirm 07/08/19 18:54 07/08/19 19:32 Proventil Neb Soln Administered 07/08/19 18:55 Not Given Dose 2.5 mg .ROUTE .STK-MED ONE Albuterol 0 gm 07/08/19 19:53 Proventil Hfa INH Q4H PRN Shortness of Breath Albuterol/Ipratropium 3 ml 07/08/19 20:07 Duoneb 3.0-0.5 Mg/3 Ml NEB Q4HRRT PRN Wheezing Diphenhydramine HCl Confirm 07/08/19 18:53 07/08/19 19:14 Benadryl Administered 07/08/19 18:54 50 mg Dose Administration 50 mg .ROUTE .STK-MED ONE Diphenhydramine HCl 50 mg 07/08/19 18:54 07/08/19 20:03 Benadryl IVPUSH 07/08/19 18:55 Not Given ONETIME ONE Doxazosin Mesylate 8 mg 07/08/19 21:00 07/08/19 20:29 Cardura PO 8 mg BEDTIME AMBROSIO Administration Enoxaparin Sodium 40 mg 07/09/19 11:00 07/09/19 11:31 Lovenox SUBCUT 40 mg Q24H AMBROSIO Administration Hydralazine HCl 10 mg 07/08/19 19:59 Apresoline IVPUSH Q4H PRN Hypertension Levofloxacin/Dextrose 750 mg/ 150 mls @ 100 mls/hr 07/08/19 16:26 07/08/19 18 :04 Premix IV 07/08/19 17:55 100 mls/hr ONETIME ONE Administration Metronidazole 500 mg/ Premix 100 mls @ 100 mls/hr 07/08/19 16:26 07/08/19 16: 43 IV 07/08/19 17:25 100 mls/hr ONETIME ONE Administration Levofloxacin/Dextrose 750 mg/ 150 mls @ 100 mls/hr 07/09/19 16:00 07/09/19 16 :15 Premix IV 100 mls/hr Q24H AMBROSIO Administration Metronidazole 500 mg/ Premix 100 mls @ 100 mls/hr 07/08/19 22:00 07/09/19 13: 58 IV 100 mls/hr Q8H AMBROSIO Administration Lorazepam Confirm 07/08/19 18:52 07/08/19 19:14 Ativan Administered 07/08/19 18:53 2 mg Dose Administration 2 mg .ROUTE .STK-MED ONE Lorazepam Confirm 07/08/19 19:03 07/08/19 19:14 Ativan Administered 07/08/19 19:04 1 mg Dose Administration 2 mg .ROUTE .STK-MED ONE Lorazepam 2 mg 07/08/19 18:57 07/08/19 20:16 Ativan IVPUSH 07/08/19 18:58 Not Given ONETIME ONE Lorazepam 1 mg 07/08/19 19:05 07/08/19 20:16 Ativan IVPUSH 07/08/19 19:06 Not Given ONETIME ONE Lorazepam 2 mg 07/08/19 20:02 Ativan IVPUSH Q4H PRN Anxiety Losartan Potassium 25 mg 07/08/19 21:00 07/08/19 20:31 Cozaar PO 25 mg BEDTIME AMBROSIO Administration Metoprolol Tartrate 12.5 mg 07/08/19 21:00 07/09/19 08:21 Lopressor PO 12.5 mg BID AMBROSIO Administration Metoprolol Tartrate 5 mg 07/08/19 19:57 Lopressor IVPUSH Q4H PRN Tachycardia Mometasone Furoate 0 gm 07/09/19 09:00 Asmanex Hfa 100mcg INH BIDRT AMBROSIO Mometasone Furoate 1 gm 07/09/19 09:00 Asmanex Hfa 100mcg INH BID AMBROSIO Mometasone Furoate 0 gm 07/09/19 09:00 07/09/19 08:13 Asmanex Hfa 100mcg INH 1 puff BID AMBROSIO Administration Pantoprazole Sodium 40 mg 07/08/19 21:00 07/09/19 06:27 Protonix PO 40 mg DAILY@0700 AMBROSIO Administration Simvastatin 20 mg 07/08/19 21:00 07/08/19 20:29 Zocor PO 20 mg BEDTIME AMBROSIO Administration Tamsulosin HCl 0.8 mg 07/08/19 17:49 07/08/19 18:04 Flomax PO 07/08/19 17:50 0.8 mg ONETIME ONE Administration Ticagrelor 90 mg 07/08/19 21:00 07/09/19 08:22 Brilinta PO 90 mg BID AMBROSIO Administration - Re-Assessments/Exams Free Text/Narrative Re-Assessment/Exam: On exam patient's blood pressure 126/73, heart rate 80, temperature 96.4, respiratory rate 16, SPO2 97% on room air. He is quite tender with palpation the left lower quadrant. CT abdomen and pelvis obtained today [facility] at [facility] impression: Distal left ureter there is a 6 mm calculus with mild left sided ureteral dilatation and hydronephrosis. Proximal sigmoid colon acute diverticulitis. There is a small amount of extraluminal air without definite abscess formation suggesting microperforation. If persistent symptomatology, short interval follow-up imaging could be considered to exclude development of an abscess. Small bilateral nonobstructing renal breakable calculi. Distention of the urinary bladder that can be associated with colored obstruction. Labwork indicatedUA negative for WBCs, RBCs, bacteria, glucose, ketones, nitrates, and leukocyte esterase. CBC indicated a white blood cell count 8.9, hemoglobin 14.4, platelets 281, neutrophil percentage is 75.9 with no left shift. CMP indicated glucose 101, creatinine 1.13 which is baseline, sodium 142 , potassium 4.1, normal LFTs. Lipase was 12. 1625 I have spoken with Dr. Wolf communications supervisor General Surgeon recommended admission with IV antibiotics. At least until patient's discomfort to his abdomen resolves and is able to be discharged home on oral medications. 1627 I also spoke with Dr. Oquendo and he recommends consult to urology to ensure that the stone will pass. If Urology does not recommend transfer he has agreed to admit. 1633 I have spoken with Dr. Azar communications supervisor Urologist at [facility]. Recommended Flomax 0.4 mg 2 tabs daily, hydrate well, if develops a urinary tract infection with concerns for pyelonephritis transfer. If better with the IV antibiotics for his diverticulitis then outpatient evaluation would be appropriate. Patient agrees to be admitted to the hospital here for antibiotic therapy for diverticulitis. I ordered Flomax 0.4 mg 2 tabs by mouth right now. Levaquin and Flagyl have been ordered. Departure - Departure Time of Disposition: 17:03 Disposition: Admitted As Inpatient 64 Condition: Good Clinical Impression: Diverticulitis, Renal calculus, left - Discharge Information
[2019-07-08] MEDS ORDERED: Tamsulosin 0.4 MG Cap.ER PO ONE (17:49)
[2019-07-08] MEDS ORDERED: Albuterol 0.083% 2.5 MG/3 ML Neb Soln ONE ×2 (18:51→18:54)
[2019-07-08] MEDS ORDERED: LORazepam 2 MG/ML SDV ONE ×2 (18:52→19:03)
[2019-07-08] MEDS ORDERED: diphenhydrAMINE 50 MG/ML SDV ONE (18:53)
[2019-07-08] MEDS ORDERED: diphenhydrAMINE 50 MG/ML SDV IVPUSH ONE (18:54)
[2019-07-08] MEDS ORDERED: LORazepam 2 MG/ML SDV IVPUSH ONE ×2 (18:57→19:05)
--- NOTE | 2019-07-08 19:40 | PCM.SN ---
- Free Text/Narrative Note: As I presented into the room I cleaned my hands with alcohol disinfectant. I went to shake the patient's hands and he asked me if I had used the alcohol cleanser. When I stated yes he started breathing rapidly with expiratory wheeze and became very agitated. This occurred within seconds and he started getting out of the bed and not following commands. A rapid response was called. Patient started breathing upwards of 50 times a minute and was hard to control. Pulse ox was obtained which showed 100% with heart rate of 120s to 130s. 50 mg of Benadryl, 2 mg of lorazepam, and an albuterol breathing treatment were administered. Patient continued to be agitated, but we were able to keep him in bed. Another milligram of lorazepam was given secondary to him shaking. Initial EKG was performed, but there was too much artifact from him shaking. This was not characteristic seizure like activity. Patient became more sedated and relaxed. He was then brought to the intensive care unit for further evaluation and treatment. Follow-up ECG was performed in the ICU, which showed normal sinus rhythm at a ventricular rate of 98 bpm. Left atrial enlargement with mild left axis. RSR in V1. No significant ST-T wave abnormalities. Troponin was obtained. Patient is now resting comfortably. states that he has multiple sensitivities and allergies to chemicals. The emergency room staff and nursing staff both used alcohol hand wheel adjuster throughout their time with him, but the feeling was the high concentration on my hands set off his allergic reaction. This then set off his panic disorder. Patient's states that he does have a history of panic disorder. Sibling similar to this happened when he was in the hospital 2 years ago following his [place]. Apparently after getting stents placed he had a similar episode in the room in the ICU.
--- NOTE | 2019-07-08 19:48 | PCM.HP.2 ---
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 Because of his sedation from Ativan and Benadryl history was obtained through his and previous notes. Patient apparently developed left lower abdominal pain on Monday. Pain worsened over the weekend and he had decreased appetite. Patient's denies any fever or chills. CT scan done at [facility] showed 1. The distal left ureter there is a 60 m calculus with mild left-sided ureteral dilatation and hydronephrosis. 2. Proximal sigmoid colon acute diverticulitis. There is a small amount of extraluminal air without definite abscess formation suggesting microperforation. If persistent symptomatology, short interval follow -up imaging could be considered to exclude the development of an abscess. 3. Small bilateral nonobstructing renal parenchymal calculi. 4. Distention of the urinary bladder can be associated with outlet obstruction. Patient told his he did think that he is passing some stones. Lab work at the clinic showed normal white count, CMP. Dr. Wolf in surgery was contacted in regards to his colonic microperforation who recommended IV antibiotics until his abdominal pain has improved. Dr. Azar was contacted in urology from [facility] who recommended Flomax, hydration, and if a urinary tract infection with concerns for pyelonephritis occurs transfer the patient. Please see the emergency room provider's note for full details since he contacted both specialists. Patient was started on Levaquin and metformin in the emergency room. Labs here: CBC 9.72 with 5.81 neutrophils which is 73.4%. Hemoglobin 14.1, platelets 291, sodium 139, potassium 3.8, BUN 12, creatinine 1.1, C-reactive protein 5.7, lactic acid 0.7. - Related Data Allergies/Adverse Reactions: Allergies Allergy/AdvReac Type Severity Reaction Status Date / Time isopropyl alcohol Allergy Shortness Verified 07/08/19 19:59 of Breath latex Allergy Cannot Verified 07/08/19 18:06 Remember orange Allergy Shortness Verified 07/08/19 15:50 of Breath Penicillins Allergy Shortness Verified 07/08/19 15:50 of Breath perfume Allergy Shortness Verified 07/08/19 19:59 of Breath Home Medications: Home Meds Doxazosin [Cardura] 8 mg PO BEDTIME 07/05/17 [History] Esomeprazole Magnesium [Nexium 24Hr] 10 mg PO BEDTIME 07/05/17 [History] Fluticasone Propionate [Flovent] 1 puff IH DAILY 07/05/17 [History] Metoprolol Tartrate 12.5 mg PO BID 07/05/17 [History] Simvastatin [Zocor] 20 mg PO BEDTIME 07/05/17 [History] Ticagrelor [Brilinta] 90 mg PO BID 07/05/17 [History] Levalbuterol Tartrate [Xopenex Hfa] 2 puff INH Q4HR PRN 07/19/17 [History] Losartan [Cozaar] 25 mg PO BEDTIME 08/01/17 [History] Past Medical History Cardiovascular History: Reports: CAD, High Cholesterol, Hypertension, [place], Stents Respiratory History: Reports: Asthma Gastrointestinal History: Reports: GERD Genitourinary History: Reports: Renal Calculus - Past Surgical History GI Surgical History: Reports: Appendectomy, Cholecystectomy Social & Family History - Family History Family Medical History: Noncontributory - Tobacco Use Smoking Status *Q: Former Smoker Years of Tobacco use: 20 Used Tobacco, but Quit: Yes Month/Year Tobacco Last Used: 1998 - Caffeine Use Caffeine Use: Reports: Soda - Recreational Drug Use Recreational Drug Use: No - Living Situation & Occupation Living situation: Reports: Occupation: Employed H&P Review of Systems - Review of Systems: Review Of Systems: Unable To Obtain Exam - Exam Exam: See Below - Vital Signs Vital Signs: Last Vital Signs Temp 97.5 F 07/08/19 18:16 Pulse 76 07/08/19 18:16 Resp 16 07/08/19 18:16 BP 120/92 H 07/08/19 18:16 Pulse Ox 99 07/08/19 18:16 Weight: 179 lb 8 oz - Exam Quality Assessment: No: Supplemental Oxygen General: Sedated HEENT: Conjunctiva Clear, Mucosa Moist & [place] Neck: Supple, Trachea Midline, 2 Lungs: Clear to Auscultation, Normal Respiratory Effort Cardiovascular: Regular Rate, Regular Rhythm GI/Abdominal Exam: Normal Bowel Sounds, Soft, Non-Tender, No Organomegaly, No Distention Extremities: Normal Inspection, Normal Range of Motion, Non-Tender, No Pedal Edema, Normal Capillary Refill Skin: Warm, Dry, Intact Neurological: Cranial Nerves Intact Psychiatric: Anxious - Patient Data Lab Results Last 24 hrs: Laboratory Results - last 24 hr 07/08/19 07/08/19 07/08/19 Range/Units 17:50 17:50 17:50 WBC 7.92 (4.23-9.07) K/mm3 RBC 4.45 L (4.63-6.08) M/mm3 Hgb 14.1 D (13.7-17.5) gm/dl Hct 41.1 (40.1-51.0) % MCV 92.4 H (79.0-92.2) fl MCH 31.7 (25.7-32.2) pg MCHC 34.3 (32.2-35.5) g/dl RDW Std Deviation 43.9 (35.1-43.9) fL Plt Count 291 (163-337) K/mm3 MPV 9.8 (9.4-12.3) fl Neut % (Auto) 73.4 H (34.0-67.9) % Lymph % (Auto) 17.0 L (21.8-53.1) % [place] % (Auto) 8.2 (5.3-12.2) % Eos % (Auto) 1.1 (0.8-7.0) Baso % (Auto) 0.3 (0.1-1.2) % Neut # (Auto) 5.81 H (1.78-5.38) K/mm3 Lymph # (Auto) 1.35 (1.32-3.57) K/mm3 [place] # (Auto) 0.65 (0.30-0.82) K/mm3 Eos # (Auto) 0.09 (0.04-0.54) K/mm3 Baso # (Auto) 0.02 (0.01-0.08) K/mm3 Sodium 139 (136-145) mEq/L Potassium 3.8 (3.5-5.1) mEq/L Chloride 104 (98-107) mEq/L Carbon Dioxide 27 (21-32) mEq/L Anion Gap 11.8 (5-15) BUN 12 (7-18) mg/dL Creatinine 1.1 (0.7-1.3) mg/dL Est Cr Clr Drug Dosing 70.36 mL/min Estimated GFR (MDRD) > 60 (>60) mL/min BUN/Creatinine Ratio 10.9 L (14-18) Glucose 94 (80-115) mg/dL Lactic Acid 0.7 (0.4-2.0) mmol/L Calcium 8.7 (8.5-10.1) mg/dL Magnesium 1.9 (1.8-2.4) mg/dl Total Bilirubin 0.5 (0.2-1.0) mg/dL AST 12 L (15-37) U/L ALT 22 (16-63) U/L Alkaline Phosphatase 64 (46-116) U/L C-Reactive Protein 5.7 H* (<1.0) mg/dL Total Protein 7.7 (6.4-8.2) g/dl Albumin 3.2 L (3.4-5.0) g/dl Globulin 4.5 gm/dL Albumin/Globulin Ratio 0.7 L (1-2) Result Diagrams: 07/08/19 17:50 07/08/19 17:50 Problem List Initiated/Reviewed/Updated: Yes Orders Last 24hrs: Active Orders 24 hr Category Date Time Status Admission Status [Patient Status] [ADT] Routine ADT 07/08/19 16:53 Active Admission Status [Patient Status] [ADT] Routine ADT 07/08/19 19:17 Active EKG 12 Lead [EKG Documentation Completion] [RC] STAT Care 07/08/19 19:32 Active Notify Provider Consults [RC] ASDIRECTED Care 07/08/19 18:47 Active Consult to Physician [CONS] Stat Cons 07/08/19 18:43 Active Clear Liquid Diet [DIET] Diet 07/08/19 Dinner Active Resuscitation Status Routine Resus Stat 07/08/19 17:37 Ordered Assessment/Plan Comment:: Assessment * 64-year-old male with history of coronary artery disease present with left lower abdominal pain. 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 I will hold on the Flomax. * clear liquid diet. Advance as tolerated based on pain and recommendations from Dr. Wolf. * Consult surgery, Dr. Wolf. * Continue home meds. * DVT prophylaxis with SCDs * CODE STATUS full code - Mortality Measure Prognosis:: Poor
[2019-07-08] MEDS ORDERED: Albuterol 6.7 GM Inhaler INH PRN (19:53)
[2019-07-08] MEDS ORDERED: Metoprolol Tartrate 5 MG/5 ML SDV IVPUSH PRN (19:57)
[2019-07-08] MEDS ORDERED: hydrALAZINE 20 MG/ML SDV IVPUSH PRN (19:59)
[2019-07-08] MEDS ORDERED: LORazepam 2 MG/ML SDV IVPUSH PRN (20:02)
[2019-07-08] MEDS ORDERED: Albuterol/Ipratropium 3.0-0.5 MG/3 ML Neb Soln NEB PRN (20:07)
[2019-07-08] MEDS: Metoprolol Tartrate 25 MG Tab PO SCH (20:30)
[2019-07-08] MEDS: Pantoprazole 40 MG Tab.CR PO SCH (20:30)
[2019-07-08] MEDS: Ticagrelor 90 MG Tab PO SCH (20:31)
[2019-07-08] MEDS ORDERED: Simvastatin 10 MG Tab PO SCH (21:00)
[2019-07-08] MEDS ORDERED: Doxazosin 4 MG Tab PO SCH (21:00)
[2019-07-08] MEDS ORDERED: Losartan 25 MG Tab PO SCH (21:00)
[2019-07-08] MEDS: metroNIDAZOLE/Normal Saline 500 MG in Premix Bag 1 BAG IV SCH (23:05)
[2019-07-09] MEDS: metroNIDAZOLE/Normal Saline 500 MG in Premix Bag 1 BAG IV SCH ×2 (05:47→13:58)
[2019-07-09] MEDS: Pantoprazole 40 MG Tab.CR PO SCH (06:27)
[2019-07-09] MEDS: Metoprolol Tartrate 25 MG Tab PO SCH (08:21)
[2019-07-09 08:22] VITALS: PULSE 77
[2019-07-09] MEDS: Ticagrelor 90 MG Tab PO SCH (08:22)
[2019-07-09] MEDS ORDERED: Mometasone Furoate HFA 100mcg/Puff 13 GM Inhaler INH SCH ×3 (09:00)
[2019-07-09] MEDS ORDERED: Enoxaparin 40 MG/0.4 ML Syringe SUBCUT SCH (11:00)
[2019-07-09] MEDS ORDERED: Levofloxacin/Dextrose 5%-Water 750 MG in Premix Bag 1 BAG IV SCH (16:00)
[2019-07-09 16:25] VITALS: BP 114/70
--- NOTE | 2019-07-09 17:25 | PCM.CONS ---
H&P History of Present Illness - General Date of Service: 08/04/19 Admit Problem/Dx: Admission Diagnosis/Problem Admission Diagnosis/Problem Diverticulitis Source of Information: Patient History Limitations: Reports: No Limitations - History of Present Illness Initial Comments - Free Text/Narative: Patient had abdominal pain, left sided and diarrhea for several days and presented to the walk-in clinic where he was sent for a CT which revealed diverticulitis with specs of extraluminal air. WBC was normal. He had no fevers or chills. Onset of Symptoms: Reports: Gradual Duration of Symptoms: Reports: Day(s):, Getting Worse Location: Reports: Abdomen (LLQ) Quality: Reports: Dull Severity: Moderate Improves with: Reports: Immobilization Worsens with: Reports: Movement Associated Symptoms: Reports: Loss of Appetite, Malaise, Other (diarrhea) Generalized Pain Score (Numeric/FACES): 0 - Related Data Allergies/Adverse Reactions: Allergies Allergy/AdvReac Type Severity Reaction Status Date / Time isopropyl alcohol Allergy Shortness Verified 07/08/19 19:59 of Breath latex Allergy Cannot Verified 07/08/19 18:06 Remember orange Allergy Shortness Verified 07/08/19 15:50 of Breath Penicillins Allergy Shortness Verified 07/08/19 15:50 of Breath perfume Allergy Shortness Verified 07/08/19 19:59 of Breath Home Medications: Home Meds Doxazosin [Cardura] 8 mg PO BEDTIME 07/05/17 [History] Esomeprazole Magnesium [Nexium 24Hr] 10 mg PO BEDTIME 07/05/17 [History] Fluticasone Propionate [Flovent] 1 puff IH DAILY 07/05/17 [History] Metoprolol Tartrate 12.5 mg PO BID 07/05/17 [History] Simvastatin [Zocor] 20 mg PO BEDTIME 07/05/17 [History] Ticagrelor [Brilinta] 90 mg PO BID 07/05/17 [History] Levalbuterol Tartrate [Xopenex Hfa] 2 puff INH Q4HR PRN 07/19/17 [History] Losartan [Cozaar] 25 mg PO BEDTIME 08/01/17 [History] Past Medical History Cardiovascular History: Reports: CAD, High Cholesterol, Hypertension, SC, Stents Respiratory History: Reports: Asthma Gastrointestinal History: Reports: GERD Genitourinary History: Reports: Renal Calculus - Past Surgical History GI Surgical History: Reports: Appendectomy, Cholecystectomy Social & Family History - Family History Family Medical History: Noncontributory - Tobacco Use Smoking Status *Q: Former Smoker Years of Tobacco use: 20 Used Tobacco, but Quit: Yes Month/Year Tobacco Last Used: 1998 - Caffeine Use Caffeine Use: Reports: Soda - Recreational Drug Use Recreational Drug Use: No - Living Situation & Occupation Living situation: Reports: Occupation: Employed H&P Review of Systems - Review of Systems: Review Of Systems: See Below General: Reports: No Symptoms HEENT: Reports: No Symptoms Pulmonary: Reports: No Symptoms Cardiovascular: Reports: No Symptoms Gastrointestinal: Reports: Abdominal Pain, Other (diarrhea) Musculoskeletal: Reports: No Symptoms Skin: Reports: No Symptoms Psychiatric: Reports: No Symptoms Exam - Exam Exam: See Below - Vital Signs Vital Signs: Last Vital Signs Temp 98.1 F 07/09/19 16:00 Pulse 77 07/09/19 08:21 Resp 18 07/09/19 16:00 BP 114/70 07/09/19 16:00 Pulse Ox 97 07/09/19 16:00 Weight: 80.3 kg - Exam General: Alert, Oriented, Cooperative, Mild Distress HEENT: Conjunctiva Clear Neck: Supple Cardiovascular: Regular Rate, Regular Rhythm, Normal S1, Normal S2 GI/Abdominal Exam: Soft, No Organomegaly, No Distention, No Abnormal Bruit, No Mass, Distended (mildly), Tender (LLQ) (Male) Exam: No Hernia - Patient Data Lab Results Last 24 hrs: Laboratory Results - last 24 hr 07/08/19 07/08/19 07/08/19 Range/Units 17:30 17:50 17:50 WBC 7.92 (4.23-9.07) K/mm3 RBC 4.45 L (4.63-6.08) M/mm3 Hgb 14.1 D (13.7-17.5) gm/dl Hct 41.1 (40.1-51.0) % MCV 92.4 H (79.0-92.2) fl MCH 31.7 (25.7-32.2) pg MCHC 34.3 (32.2-35.5) g/dl RDW Std Deviation 43.9 (35.1-43.9) fL Plt Count 291 (163-337) K/mm3 MPV 9.8 (9.4-12.3) fl Neut % (Auto) 73.4 H (34.0-67.9) % Lymph % (Auto) 17.0 L (21.8-53.1) % [place] % (Auto) 8.2 (5.3-12.2) % Eos % (Auto) 1.1 (0.8-7.0) Baso % (Auto) 0.3 (0.1-1.2) % Neut # (Auto) 5.81 H (1.78-5.38) K/mm3 Lymph # (Auto) 1.35 (1.32-3.57) K/mm3 [place] # (Auto) 0.65 (0.30-0.82) K/mm3 Eos # (Auto) 0.09 (0.04-0.54) K/mm3 Baso # (Auto) 0.02 (0.01-0.08) K/mm3 Sodium 139 (136-145) mEq/L Potassium 3.8 (3.5-5.1) mEq/L Chloride 104 (98-107) mEq/L Carbon Dioxide 27 (21-32) mEq/L Anion Gap 11.8 (5-15) BUN 12 (7-18) mg/dL Creatinine 1.1 (0.7-1.3) mg/dL Est Cr Clr Drug Dosing 70.36 mL/min Estimated GFR (MDRD) > 60 (>60) mL/min BUN/Creatinine Ratio 10.9 L (14-18) Glucose 94 (80-115) mg/dL Lactic Acid (0.4-2.0) mmol/L Calcium 8.7 (8.5-10.1) mg/dL Magnesium 1.9 (1.8-2.4) mg/dl Total Bilirubin 0.5 (0.2-1.0) mg/dL AST 12 L (15-37) U/L ALT 22 (16-63) U/L Alkaline Phosphatase 64 (46-116) U/L Troponin I < 0.017 (0.00-0.056) ng/mL C-Reactive Protein 5.7 H* (<1.0) mg/dL Total Protein 7.7 (6.4-8.2) g/dl Albumin 3.2 L (3.4-5.0) g/dl Globulin 4.5 gm/dL Albumin/Globulin Ratio 0.7 L (1-2) 07/08/19 07/09/19 07/09/19 Range/Units 17:50 05:36 05:36 WBC 8.38 (4.23-9.07) K/mm3 RBC 4.12 L (4.63-6.08) M/mm3 Hgb 13.1 L (13.7-17.5) gm/dl Hct 38.1 L (40.1-51.0) % MCV 92.5 H (79.0-92.2) fl MCH 31.8 (25.7-32.2) pg MCHC 34.4 (32.2-35.5) g/dl RDW Std Deviation 43.2 (35.1-43.9) fL Plt Count 281 (163-337) K/mm3 MPV 10.3 (9.4-12.3) fl Neut % (Auto) 74.5 H (34.0-67.9) % Lymph % (Auto) 14.2 L (21.8-53.1) % [place] % (Auto) 9.2 (5.3-12.2) % Eos % (Auto) 1.9 (0.8-7.0) Baso % (Auto) 0.2 (0.1-1.2) % Neut # (Auto) 6.24 H (1.78-5.38) K/mm3 Lymph # (Auto) 1.19 L (1.32-3.57) K/mm3 [place] # (Auto) 0.77 (0.30-0.82) K/mm3 Eos # (Auto) 0.16 (0.04-0.54) K/mm3 Baso # (Auto) 0.02 (0.01-0.08) K/mm3 Sodium 139 (136-145) mEq/L Potassium 3.9 (3.5-5.1) mEq/L Chloride 105 (98-107) mEq/L Carbon Dioxide 24 (21-32) mEq/L Anion Gap 13.9 (5-15) BUN 12 (7-18) mg/dL Creatinine 1.2 (0.7-1.3) mg/dL Est Cr Clr Drug Dosing TNP mL/min Estimated GFR (MDRD) > 60 (>60) mL/min BUN/Creatinine Ratio 10.0 L (14-18) Glucose 85 (80-115) mg/dL Lactic Acid 0.7 (0.4-2.0) mmol/L Calcium 8.7 (8.5-10.1) mg/dL Magnesium 2.0 (1.8-2.4) mg/dl Total Bilirubin 0.6 (0.2-1.0) mg/dL AST 15 (15-37) U/L ALT 18 (16-63) U/L Alkaline Phosphatase 57 (46-116) U/L Troponin I < 0.017 (0.00-0.056) ng/mL C-Reactive Protein 3.6 H* (<1.0) mg/dL Total Protein 6.8 (6.4-8.2) g/dl Albumin 2.8 L (3.4-5.0) g/dl Globulin 4.0 gm/dL Albumin/Globulin Ratio 0.7 L (1-2) Result Diagrams: 07/09/19 05:36 07/09/19 05:36 Consult PN Assessment/Plan Procedures: Procedures AIRWAY INHALATION TREATMENT (06/25/17) ASSAY OF MAGNESIUM (07/19/17) ASSAY OF NATRIURETIC PEPTIDE (07/19/17) ASSAY OF TROPONIN QUANT (03/17/19) CARDIAC REHAB/MONITOR (08/17/17) CHEST X-RAY 1 VIEW FRONTAL (08/27/17) COMPLETE CBC W/AUTO DIFF WBC (03/17/19) COMPREHEN METABOLIC PANEL (03/17/19) CREATINE MB FRACTION (08/27/17) CULTURE SCREEN ONLY (11/30/18) ELECTROCARDIOGRAM TRACING (03/17/19) EMERGENCY DEPT VISIT (03/17/19) EXTREMITY STUDY (03/16/18) FIBRIN DEGRADATION QUANT (03/17/19) HYDRATE IV INFUSION ADD-ON (06/25/17) HYDRATION IV INFUSION INIT (07/19/17) MRI JNT OF LWR EXTRE W/O DYE (12/26/18) MRI LUMBAR SPINE W/O DYE (07/11/17) OFFICE/OUTPATIENT VISIT NEW (09/10/18) PROTHROMBIN TIME (03/17/19) ROUTINE VENIPUNCTURE (03/17/19) STREP A AG IA (11/30/18) THER/PROPH/DIAG INJ IV PUSH (06/25/17) THER/PROPH/DIAG INJ SC/IM (06/25/17) THROMBOPLASTIN TIME PARTIAL (03/17/19) TX/PRO/DX INJ NEW DRUG ADDON (06/25/17) X-RAY EXAM CHEST 2 VIEWS (03/17/19) X-RAY EXAM OF KNEE 3 (12/20/18) Problem List Initiated/Reviewed/Updated: No My Orders Last 24 Hours: My Active Orders 07/09/19 17:02 Consult to Dietary [Consult to Guide Winder] [CONS] Routine Plan: Diverticulitis with minimal extraluminal air. Patient is feeling better with antibiotics. Passing flatus, no BM today. Has been ambulating. I think the patent can be discharged home today. He reports he had a colonoscopy within 1 yr and it showed nothing more than two polyps. I discussed with the patient extensively about his diverticulitis and emphasized that he needs to continue to take oral antibiotics as prescribed to prevent disease progression as it could lean to an emergent surgery. I discussed with him that with antibiotics he should expect progressive improvement of abdominal pain until is resolves over the next few days. If symptoms resolve he can follow up PRN as he already had a recent colonoscopy. However, If symptoms recur or persist, he will need to seek medical attention. Patient verbalized understanding.
--- NOTE | 2019-07-09 18:06 | PCM.DCSUM1 ---
Discharge Summary - Hospital Course Free Text/Narrative:: As I presented into the room I cleaned my hands with alcohol disinfectant. I went to shake the patient's hands and he asked me if I had used the alcohol cleanser. When I stated yes he started breathing rapidly with expiratory wheeze and became very agitated. This occurred within seconds and he started getting out of the bed and not following commands. A rapid response was called. Patient started breathing upwards of 50 times a minute and was hard to control. Pulse ox was obtained which showed 100% with heart rate of 120s to 130s. 50 mg of Benadryl, 2 mg of lorazepam, and an albuterol breathing treatment were administered. Patient continued to be agitated, but we were able to keep him in bed. Another milligram of lorazepam was given secondary to him shaking. Initial EKG was performed, but there was too much artifact from him shaking. This was not characteristic seizure like activity. Patient became more sedated and relaxed. He was then brought to the intensive care unit for further evaluation and treatment. Follow-up ECG was performed in the ICU, which showed normal sinus rhythm at a ventricular rate of 98 bpm. Left atrial enlargement with mild left axis. RSR in V1. No significant ST-T wave abnormalities. Troponin was obtained. Patient is now resting comfortably. states that he has multiple sensitivities and allergies to chemicals. The emergency room staff and nursing staff both used alcohol hand director of physician practices throughout their time with him, but the feeling was the high concentration on my hands set off his allergic reaction. This then set off his panic disorder. Patient's states that he does have a history of panic disorder. Sibling similar to this happened when he was in the hospital 2 years ago following his MD. Apparently after getting stents placed he had a similar episode in the room in the ICU. Brief History: Please see previous note describing his reaction to hand lens silverer. Because of his sedation from Ativan and Benadryl history was obtained through his and previous notes. Patient apparently developed left lower abdominal pain on Monday. Pain worsened over the weekend and he had decreased appetite. Patient's denies any fever or chills. CT scan done at [facility] showed 1. The distal left ureter there is a 60 m calculus with mild left-sided ureteral dilatation and hydronephrosis. 2. Proximal sigmoid colon acute diverticulitis. There is a small amount of extraluminal air without definite abscess formation suggesting microperforation. If persistent symptomatology, short interval follow-up imaging could be considered to exclude the development of an abscess. 3. Small bilateral nonobstructing renal parenchymal calculi. 4. Distention of the urinary bladder can be associated with outlet obstruction. Patient told his he did think that he is passing some stones. Lab work at the clinic showed normal white count, CMP. Dr. Wolf in surgery was contacted in regards to his colonic microperforation who recommended IV antibiotics until his abdominal pain has improved. Dr. Azar was contacted in urology from who recommended Flomax, hydration , and if a urinary tract infection with concerns for pyelonephritis occurs transfer the patient. Please see the emergency room provider's note for full details since he contacted both specialists. Patient was started on Levaquin and metformin in the emergency room. Labs here: CBC 9.72 with 5.81 neutrophils which is 73.4%. Hemoglobin 14.1, platelets 291, sodium 139, potassium 3.8, BUN 12, creatinine 1.1, C-reactive protein 5.7, lactic acid 0.7. Diagnosis: Stroke: No - Discharge Data Discharge Date: 07/09/19 Discharge Disposition: Home, Self-Care 01 Condition: Good - Referral to Home Health Primary Care Physician: Noe Cedillo MD - Patient Summary/Data Consults: Consultations 07/08/19 18:43 Consult to Physician [CONS] Stat 07/09/19 17:02 Consult to Dietary [Consult to Medical Technologist Hematology] [CONS] Routine Hospital Course: patient slept well overnight. He was able to advance his diet and was seen by Dr. Wolf this evening. It was felt that she could be discharged home tonight on oral antibiotics of Levaquin and metronidazole. - Patient Instructions Diet: GI Soft/Low Residue/Low Fiber Driving: Do Not Drive Showering/Bathing: May Shower Other/Special Instructions: Follow up with PCP about your kidney stone. Follow up with Dr. Wolf for you diverticulitis. - Discharge Plan *PRESCRIPTION DRUG MONITORING PROGRAM REVIEWED*: No *COPY OF PRESCRIPTION DRUG MONITORING REPORT IN PATIENT ANILA: No Prescriptions/Med Rec: Levofloxacin 750 mg PO DAILY #9 tablet metroNIDAZOLE [Metronidazole] 500 mg PO Q8H #27 tablet Home Medications: Home Meds Doxazosin [Cardura] 8 mg PO BEDTIME 07/05/17 [History] Esomeprazole Magnesium [Nexium 24Hr] 10 mg PO BEDTIME 07/05/17 [History] Fluticasone Propionate [Flovent] 1 puff IH DAILY 07/05/17 [History] Metoprolol Tartrate 12.5 mg PO BID 07/05/17 [History] Simvastatin [Zocor] 20 mg PO BEDTIME 07/05/17 [History] Ticagrelor [Brilinta] 90 mg PO BID 07/05/17 [History] Levalbuterol Tartrate [Xopenex Hfa] 2 puff INH Q4HR PRN 07/19/17 [History] Losartan [Cozaar] 25 mg PO BEDTIME 08/01/17 [History] Levofloxacin 750 mg PO DAILY #9 tablet 07/09/19 [Rx] metroNIDAZOLE [Metronidazole] 500 mg PO Q8H #27 tablet 07/09/19 [Rx] Oxygen Therapy Mode: Room Air Patient Handouts: Diverticulitis, [id number], Kidney Stones, [id number] Forms: ED Department Discharge Referrals: Noe Cedillo MD [Primary Care Provider] - - Discharge Summary/Plan Comment DC Time >30 min.: Yes Discharge Summary/Plan Comment: follow-up with Dr. Muhammad in regards to your 6 mm left-sided kidney stone with hydronephrosis. Follow-up with Dr. Wolf for your diverticulitis next week. Levaquin 750 mg by mouth daily for 9 days. Metronidazole 500 mg every 8 hours for 9 days. - General Info Date of Service: 07/09/19 Admission Dx/Problem (Free Text: Admission Diagnosis/Problem Admission Diagnosis/Problem Diverticulitis Subjective Update: Patient did very well today. I saw multiple times walking the halls throughout the day. He denies any significant abdominal pain. Functional Status: Reports: Pain Controlled - Review of Systems General: Reports: No Symptoms. Denies: Fever HEENT: Reports: No Symptoms Pulmonary: Reports: No Symptoms Cardiovascular: Reports: No Symptoms Gastrointestinal: Reports: No Symptoms - Patient Data Vitals - Most Recent: Last Vital Signs Temp 98.1 F 07/09/19 16:00 Pulse 77 07/09/19 08:21 Resp 18 07/09/19 16:00 BP 114/70 07/09/19 16:00 Pulse Ox 97 07/09/19 16:00 Weight - Most Recent: 177 lb 0.499 oz I&O - Last 24 hours: Intake & Output 07/09/19 07/09/19 07/09/19 06:59 14:59 22:59 Intake Total 785 464 9885 Output Total 600 600 Balance 500 -80 545 Lab Results - Last 24 hrs: Laboratory Results - last 24 hr 07/08/19 07/08/19 07/08/19 Range/Units 17:30 17:50 17:50 WBC (4.23-9.07) K/mm3 RBC (4.63-6.08) M/mm3 Hgb (13.7-17.5) gm/dl Hct (40.1-51.0) % MCV (79.0-92.2) fl MCH (25.7-32.2) pg MCHC (32.2-35.5) g/dl RDW Std Deviation (35.1-43.9) fL Plt Count (163-337) K/mm3 MPV (9.4-12.3) fl Neut % (Auto) (34.0-67.9) % Lymph % (Auto) (21.8-53.1) % [place] % (Auto) (5.3-12.2) % Eos % (Auto) (0.8-7.0) Baso % (Auto) (0.1-1.2) % Neut # (Auto) (1.78-5.38) K/mm3 Lymph # (Auto) (1.32-3.57) K/mm3 [place] # (Auto) (0.30-0.82) K/mm3 Eos # (Auto) (0.04-0.54) K/mm3 Baso # (Auto) (0.01-0.08) K/mm3 Sodium 139 (136-145) mEq/L Potassium 3.8 (3.5-5.1) mEq/L Chloride 104 (98-107) mEq/L Carbon Dioxide 27 (21-32) mEq/L Anion Gap 11.8 (5-15) BUN 12 (7-18) mg/dL Creatinine 1.1 (0.7-1.3) mg/dL Est Cr Clr Drug Dosing 70.36 mL/min Estimated GFR (MDRD) > 60 (>60) mL/min BUN/Creatinine Ratio 10.9 L (14-18) Glucose 94 (80-115) mg/dL Lactic Acid 0.7 (0.4-2.0) mmol/L Calcium 8.7 (8.5-10.1) mg/dL Magnesium 1.9 (1.8-2.4) mg/dl Total Bilirubin 0.5 (0.2-1.0) mg/dL AST 12 L (15-37) U/L ALT 22 (16-63) U/L Alkaline Phosphatase 64 (46-116) U/L Troponin I < 0.017 (0.00-0.056) ng/mL C-Reactive Protein 5.7 H* (<1.0) mg/dL Total Protein 7.7 (6.4-8.2) g/dl Albumin 3.2 L (3.4-5.0) g/dl Globulin 4.5 gm/dL Albumin/Globulin Ratio 0.7 L (1-2) 07/09/19 07/09/19 Range/Units 05:36 05:36 WBC 8.38 (4.23-9.07) K/mm3 RBC 4.12 L (4.63-6.08) M/mm3 Hgb 13.1 L (13.7-17.5) gm/dl Hct 38.1 L (40.1-51.0) % MCV 92.5 H (79.0-92.2) fl MCH 31.8 (25.7-32.2) pg MCHC 34.4 (32.2-35.5) g/dl RDW Std Deviation 43.2 (35.1-43.9) fL Plt Count 281 (163-337) K/mm3 MPV 10.3 (9.4-12.3) fl Neut % (Auto) 74.5 H (34.0-67.9) % Lymph % (Auto) 14.2 L (21.8-53.1) % [place] % (Auto) 9.2 (5.3-12.2) % Eos % (Auto) 1.9 (0.8-7.0) Baso % (Auto) 0.2 (0.1-1.2) % Neut # (Auto) 6.24 H (1.78-5.38) K/mm3 Lymph # (Auto) 1.19 L (1.32-3.57) K/mm3 [place] # (Auto) 0.77 (0.30-0.82) K/mm3 Eos # (Auto) 0.16 (0.04-0.54) K/mm3 Baso # (Auto) 0.02 (0.01-0.08) K/mm3 Sodium 139 (136-145) mEq/L Potassium 3.9 (3.5-5.1) mEq/L Chloride 105 (98-107) mEq/L Carbon Dioxide 24 (21-32) mEq/L Anion Gap 13.9 (5-15) BUN 12 (7-18) mg/dL Creatinine 1.2 (0.7-1.3) mg/dL Est Cr Clr Drug Dosing TNP mL/min Estimated GFR (MDRD) > 60 (>60) mL/min BUN/Creatinine Ratio 10.0 L (14-18) Glucose 85 (80-115) mg/dL Lactic Acid (0.4-2.0) mmol/L Calcium 8.7 (8.5-10.1) mg/dL Magnesium 2.0 (1.8-2.4) mg/dl Total Bilirubin 0.6 (0.2-1.0) mg/dL AST 15 (15-37) U/L ALT 18 (16-63) U/L Alkaline Phosphatase 57 (46-116) U/L Troponin I < 0.017 (0.00-0.056) ng/mL C-Reactive Protein 3.6 H* (<1.0) mg/dL Total Protein 6.8 (6.4-8.2) g/dl Albumin 2.8 L (3.4-5.0) g/dl Globulin 4.0 gm/dL Albumin/Globulin Ratio 0.7 L (1-2) Med Orders - Current: Current Medications Albuterol (Proventil Hfa) 0 gm INH Q4H PRN PRN Reason: Shortness of Breath Albuterol/Ipratropium (Duoneb 3.0-0.5 Mg/3 Ml) 3 ml NEB Q4HRRT PRN PRN Reason: Wheezing Doxazosin Mesylate (Cardura) 8 mg PO BEDTIME ON LICENSE OF [facility] Last Admin: 07/08/19 20:29 Dose: 8 mg Enoxaparin Sodium (Lovenox) 40 mg SUBCUT Q24H ON LICENSE OF [facility] Last Admin: 07/09/19 11:31 Dose: 40 mg Hydralazine HCl (Apresoline) 10 mg IVPUSH Q4H PRN PRN Reason: Hypertension Levofloxacin/Dextrose 750 mg/ (Premix) 150 mls @ 100 mls/hr IV Q24H ON LICENSE OF [facility] Last Admin: 07/09/19 16:15 Dose: 100 mls/hr Metronidazole 500 mg/ Premix 100 mls @ 100 mls/hr IV Q8H ON LICENSE OF [facility] Last Admin: 07/09/19 13:58 Dose: 100 mls/hr Lorazepam (Ativan) 2 mg IVPUSH Q4H PRN PRN Reason: Anxiety Losartan Potassium (Cozaar) 25 mg PO BEDTIME ON LICENSE OF [facility] Last Admin: 07/08/19 20:31 Dose: 25 mg Metoprolol Tartrate (Lopressor) 12.5 mg PO BID ON LICENSE OF [facility] Last Admin: 07/09/19 08:21 Dose: 12.5 mg Metoprolol Tartrate (Lopressor) 5 mg IVPUSH Q4H PRN PRN Reason: Tachycardia Mometasone Furoate (Asmanex Hfa 100mcg) 0 gm INH BID ON LICENSE OF [facility] Last Admin: 07/09/19 08:13 Dose: 1 puff Pantoprazole Sodium (Protonix) 40 mg PO DAILY@0700 ON LICENSE OF [facility] Last Admin: 07/09/19 06:27 Dose: 40 mg Simvastatin (Zocor) 20 mg PO BEDTIME ON LICENSE OF [facility] Last Admin: 07/08/19 20:29 Dose: 20 mg Ticagrelor (Brilinta) 90 mg PO BID ON LICENSE OF [facility] Last Admin: 07/09/19 08:22 Dose: 90 mg Discontinued Medications Albuterol (Proventil Neb Soln) Confirm Administered Dose 2.5 mg .ROUTE .STK-MED ONE Stop: 07/08/19 18:52 Last Admin: 07/08/19 18:59 Dose: 2.5 mg Albuterol (Proventil Neb Soln) Confirm Administered Dose 2.5 mg .ROUTE .STK-MED ONE Stop: 07/08/19 18:55 Last Admin: 07/08/19 19:32 Dose: Not Given Diphenhydramine HCl (Benadryl) Confirm Administered Dose 50 mg .ROUTE .STK-MED ONE Stop: 07/08/19 18:54 Last Admin: 07/08/19 19:14 Dose: 50 mg Diphenhydramine HCl (Benadryl) 50 mg IVPUSH ONETIME ONE Stop: 07/08/19 18:55 Last Admin: 07/08/19 20:03 Dose: Not Given Levofloxacin/Dextrose 750 mg/ (Premix) 150 mls @ 100 mls/hr IV ONETIME ONE Stop: 07/08/19 17:55 Last Admin: 07/08/19 18:04 Dose: 100 mls/hr Metronidazole 500 mg/ Premix 100 mls @ 100 mls/hr IV ONETIME ONE Stop: 07/08/19 17:25 Last Admin: 07/08/19 16:43 Dose: 100 mls/hr Lorazepam (Ativan) Confirm Administered Dose 2 mg .ROUTE .STK-MED ONE Stop: 07/08/19 18:53 Last Admin: 07/08/19 19:14 Dose: 2 mg Lorazepam (Ativan) Confirm Administered Dose 2 mg .ROUTE .STK-MED ONE Stop: 07/08/19 19:04 Last Admin: 07/08/19 19:14 Dose: 1 mg Lorazepam (Ativan) 2 mg IVPUSH ONETIME ONE Stop: 07/08/19 18:58 Last Admin: 07/08/19 20:16 Dose: Not Given Lorazepam (Ativan) 1 mg IVPUSH ONETIME ONE Stop: 07/08/19 19:06 Last Admin: 07/08/19 20:16 Dose: Not Given Mometasone Furoate (Asmanex Hfa 100mcg) 0 gm INH BIDRT AMBROSIO Mometasone Furoate (Asmanex Hfa 100mcg) 1 gm INH BID AMBROSIO Tamsulosin HCl (Flomax) 0.8 mg PO ONETIME ONE Stop: 07/08/19 17:50 Last Admin: 07/08/19 18:04 Dose: 0.8 mg - Exam General: Reports: Alert, Oriented HEENT: Reports: Pupils Equal, Pupils Reactive, EOMI, Mucous Membr. Moist/[place] Neck: Reports: Supple Lungs: Reports: Clear to Auscultation, Normal Respiratory Effort Cardiovascular: Reports: Regular Rate, Regular Rhythm GI/Abdominal Exam: Normal Bowel Sounds, Soft, No Organomegaly, No Distention, No Abnormal Bruit, No Mass, Tender (minimal left lower quadrant tenderness). No : Guarding, Rigid, Rebound Extremities: Normal Inspection, Normal Range of Motion, Non-Tender, No Pedal Edema, Normal Capillary Refill Skin: Reports: Warm, Dry, Intact Neurological: Reports: No New Focal Deficit Psy/Mental Status: Reports: Alert, Normal Affect, Normal Mood
== END 2019-07-09 19:00 | disposition home or self-care (01) | DRG 392 ==
LOC: JD.ED 15:38 → JD.MS 16:53 → JD.ICU 19:17
PROVIDERS: ADMIT Family Medicine; ATTEND Family Medicine
DX: K57.20 Diverticulitis of large intestine with perforation and abscess without bleeding (principal); K57.32 Diverticulitis of large intestine without perforation or abscess without bleeding; N13.2 Hydronephrosis with renal and ureteral calculous obstruction; R50.9 Fever, unspecified; J45.901 Unspecified asthma with (acute) exacerbation; R25.1 Tremor, unspecified; R45.1 Restlessness and agitation; T78.49XA Other allergy, initial encounter; I25.10 Atherosclerotic heart disease of native coronary artery without angina pectoris; F41.0 Panic disorder [episodic paroxysmal anxiety]; E78.00 Pure hypercholesterolemia, unspecified; I10 Essential (primary) hypertension; K21.9 Gastro-esophageal reflux disease without esophagitis; Z87.442 Personal history of urinary calculi; Z90.49 Acquired absence of other specified parts of digestive tract; Z87.891 Personal history of nicotine dependence; Z88.8 Allergy status to other drugs, medicaments and biological substances; Z91.040 Latex allergy status; Z88.0 Allergy status to penicillin; Z91.018 Allergy to other foods; Z91.048 Other nonmedicinal substance allergy status; Z79.899 Other long term (current) drug therapy; I25.2 Old myocardial infarction; Z95.5 Presence of coronary angioplasty implant and graft
CPT/HCPCS: 96374; 99284; J3490; 36415; 80053; 83605; 83735; 84484; 85025; 86140; 93005; 94640; 99285; A9270-GY; J1200; J1650; J1956; J2060

== ENCOUNTER 2019-10-31 09:06 | Day surgery (SDC) | payer MEDICARE, BC ==
[~2019-10-31 09:06] MED LIST: EPINEPHrine 1 MG/1 ML Amp SCH; Lactated Ringers 1,000 ML IV SCH; Lidocaine 1%/Sod Bicarbonate in NS 8.4% 1 ML Syringe IDERM PRN; Sodium Chloride 0.9% 10 ML Syringe FLUSH PRN
--- NOTE | 2019-10-31 10:31 | PCM.PREANE ---
Preanesthetic Assessment - Procedure Proposed Procedure: Left Knee Arthroscopy - Anesthesia/Transfusion/Family Hx Anesthesia History: Prior Anesthesia Without Reaction Transfusion History: No Prior Transfusion(s) - Review of Systems General: No Symptoms Pulmonary: No Symptoms Cardiovascular: No Symptoms Gastrointestinal: No Symptoms Neurological: No Symptoms Other: Reports: None ( ), Anxiety - Physical Assessment NPO Status Date: 10/30/19 NPO Status Time: 21:00 ASA Class: 3 Mental Status: Alert & Oriented x3 Airway Class: Mallampati = 3 Thyro-Mental Finger Breadths: 3 Mouth Opening Finger Breadths: 3 ROM/Head Extension: Limited/Partial Lungs: Clear to Auscultation, Normal Respiratory Effort Cardiovascular: Regular Rate, Regular Rhythm - Lab Values: Laboratory Last Values MRSA (PCR) Negative 10/22/19 15:05 - Allergies Allergies/Adverse Reactions: Allergies Allergy/AdvReac Type Severity Reaction Status Date / Time ciprofloxacin [From Cipro] Allergy Rash Verified 10/30/19 17:13 isopropyl alcohol Allergy Shortness Verified 10/30/19 17:13 of Breath latex Allergy Swelling Verified 10/30/19 17:13 loratadine [From Claritin] Allergy Cannot Verified 10/30/19 17:13 Remember orange Allergy Shortness Verified 10/30/19 17:13 of Breath Penicillins Allergy Shortness Verified 10/30/19 17:13 of Breath perfume Allergy Shortness Verified 10/30/19 17:13 of Breath pseudoephedrine Allergy Cannot Verified 10/30/19 17:13 [From Sudafed] Remember - Anesthesia Plan Beta Samantha: Metoprolol Med Last Dose Date: 10/31/19 Med Last Dose Time: 05:30 - Acknowledgements Anesthesia Type Planned: General Anesthesia Pt an Appropriate Candidate for the Planned Anesthesia: Yes Alternatives and Risks of Anesthesia Discussed w Pt/Guardian: Yes Pt/Guardian Understands and Agrees with Anesthesia Plan: Yes PreAnesthesia Questionnaire Cardiovascular History: Reports: CAD, High Cholesterol, Hypertension, NV (2017) , Stents (x2 2017) Respiratory History: Reports: Asthma Gastrointestinal History: Reports: GERD Genitourinary History: Reports: Renal Calculus Musculoskeletal History: Reports: Other (See Below) Other Musculoskeletal History: LEFT KNEE PAIN Psychiatric History: Reports: Panic Attack - Past Surgical History Head Surgeries/Procedures: Reports: None HEENT Surgical History: Reports: Naso-Sinus Surgery Cardiovascular Surgical History: Reports: None Respiratory Surgical History: Reports: None GI Surgical History: Reports: Appendectomy, Cholecystectomy Male Surgical History: Reports: Cystectomy, Lithotripsy (ES[facility]), Vasectomy, Other (See Below) Other Male Surgeries/Procedures: LEFT URETER STENT- HAS BEEN REMOVED Endocrine Surgical History: Reports: None Neurological Surgical History: Reports: None Musculoskeletal Surgical History: Reports: Other (See Below) Other Musculoskeletal Surgeries/Procedures:: LEFT HAND SURGERY Oncologic Surgical History: Reports: None Dermatological Surgical History: Reports: None - SUBSTANCE USE Smoking Status *Q: Former Smoker Recreational Drug Use History: No - HOME MEDS Home Medications: Home Meds Doxazosin [Cardura] 8 mg PO BEDTIME 07/05/17 [History] Esomeprazole Magnesium [Nexium 24Hr] 10 mg PO BEDTIME 07/05/17 [History] Fluticasone Propionate [Flovent] 1 puff IH DAILY 07/05/17 [History] Metoprolol Tartrate 12.5 mg PO BID 07/05/17 [History] Simvastatin [Zocor] 20 mg PO BEDTIME 07/05/17 [History] Ticagrelor [Brilinta] 90 mg PO BID 07/05/17 [History] Levalbuterol Tartrate [Xopenex Hfa] 2 puff INH Q6H PRN 07/19/17 [History] Losartan [Cozaar] 25 mg PO BEDTIME 08/01/17 [History] Montelukast Sodium [Singulair] 10 mg PO DAILY 10/30/19 [History] Nitroglycerin [Nitrostat] 0.4 mg SL ASDIRECTED PRN 10/30/19 [History] Acetaminophen/HYDROcodone [[place] 325-5 MG] 1 - 2 tab PO Q6H PRN #20 tablet 10/31 [Rx] - CURRENT (IN HOUSE) MEDS Current Meds: Current Medications Epinephrine HCl (Adrenalin) 3 mg .XX ONETIME AMBROSIO Stop: 10/31/19 12:00 Lactated Ringer's (Ringers, Lactated) 1,000 mls @ 125 mls/hr IV ASDIRECTED AMBROSIO Lidocaine/Sodium Bicarbonate (Buffered Lidocaine 1% In Ns 8.4%) 0.25 ml IDERM ONETIME PRN PRN Reason: Prior to IV Start Sodium Chloride (Saline Flush) 10 ml FLUSH ASDIRECTED PRN PRN Reason: Keep Vein Open
[2019-10-31] MEDS ORDERED: Clindamycin Phosphate in D5W 900 MG in Premix Bag 1 BAG IV STA ×2 (11:35)
[2019-10-31] MEDS ORDERED: Ondansetron 4 MG/2 ML SDV ONE (11:37)
[2019-10-31] MEDS ORDERED: Bupivacaine 0.25% 10 ML SDV ONE (11:38)
[2019-10-31] MEDS ORDERED: Propofol 200 MG/20 ML SDV ONE (11:38)
[2019-10-31] MEDS ORDERED: Midazolam 1 MG/ML 2 ML SDV ONE ×2 (11:38→13:19)
[2019-10-31] MEDS ORDERED: fentaNYL 250 MCG/5 ML SDV ONE (11:38)
[2019-10-31] MEDS ORDERED: Lidocaine 1% 4 ML ONE (11:40)
[2019-10-31] MEDS ORDERED: ePHEDrine/Normal Saline 25 MG/5 ML Syringe ONE (12:16)
[2019-10-31] MEDS ORDERED: Lactated Ringers 1,000 ML ONE (12:23)
[2019-10-31] MEDS ORDERED: LORazepam 2 MG/ML SDV ONE (13:10)
[2019-10-31] MEDS ORDERED: LORazepam 2 MG/ML SDV IVPUSH ONE (13:10)
[2019-10-31] MEDS ORDERED: fentaNYL 100 MCG/2 ML SDV IVPUSH PRN (13:15)
--- NOTE | 2019-10-31 13:17 | PCM.POSTAN ---
POST ANESTHESIA ASSESSMENT - MENTAL STATUS Mental Status: Somnolent - VITAL SIGNS Vital Signs: Last Vital Signs Temp 36.6 C 10/31/19 10:43 Pulse 73 10/31/19 10:43 Resp 16 10/31/19 10:43 BP 122/73 10/31/19 10:43 Pulse Ox 95 10/31/19 10:43 - RESPIRATORY Respiratory Status: Respiratory Rate WNL, Airway Patent, O2 Saturation Stable, Supplemental Oxygen - CARDIOVASCULAR CV Status: Pulse Rate WNL, Blood Pressure Stable - GASTROINTESTINAL GI Status: No Symptoms - PAIN Pain Score: 0 - POST OP HYDRATION Hydration Status: Adequate & Stable - OBSERVATIONS Free Text/Narrative:: no anesthesia complications noted
[2019-10-31] MEDS ORDERED: Midazolam 1 MG/ML 2 ML SDV IVPUSH ONE (13:18)
[2019-10-31 15:22] VITALS: BP 120/73; PULSE 75
--- NOTE | 2019-10-31 15:35 | PCM48HPAN ---
Post Anesthesia Note - EVALUATION WITHIN 48HRS OF ANESTHETIC Vital Signs in Normal Range: Yes Patient Participated in Evaluation: Yes Respiratory Function Stable: Yes Airway Patent: Yes Cardiovascular Function Stable: Yes Hydration Status Stable: Yes Pain Control Satisfactory: Yes Nausea and Vomiting Control Satisfactory: Yes Mental Status Recovered: Yes Vital Signs: Last Vital Signs Temp 36.3 C 10/31/19 14:15 Pulse 75 10/31/19 15:00 Resp 16 10/31/19 15:00 BP 120/73 10/31/19 15:00 Pulse Ox 94 L 10/31/19 15:00 - COMMENTS/OBSERVATIONS Free Text/Narrative:: no anesthesia complications noted
--- NOTE | 2019-11-04 10:32 | PCM.OPNOTE ---
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
--- NOTE | 2019-11-04 11:31 | OR ---
DATE OF OPERATION: 10/31/2019 SURGEON: Ricardo Michaels MD OPERATION PERFORMED: Left knee video arthroscopy with partial medial meniscectomy and chondroplasty of the patella and medial tibial plateau. PREOPERATIVE DIAGNOSIS: Left knee medial meniscus tear with osteoarthrosis and chondral flaps. POSTOPERATIVE DIAGNOSIS: Left knee medial meniscus tear with osteoarthrosis and chondral flaps. ANESTHESIA: General LMA with local. ANESTHESIA PROVIDER: Clement Prakash CRNA SHIP ERECTOR: Sandi Barreto PA-C ESTIMATED BLOOD LOSS: Less than 5 mL. COMPLICATIONS: None. CONDITION: Stable. DESCRIPTION OF PROCEDURE: The patient was identified in the preop holding area. Proper site was marked and identified by the surgeon. The patient was taken back to the operative theater where after adequate anesthesia, the patient's right lower extremity was placed in a well leg kaufman. Left lower extremity had a nonsterile tourniquet applied. It was then placed on a C-clamp kaufman. Foot of bed was then lowered. Left lower extremity was then sterilely prepped and draped in the usual sterile fashion. OR time-out was performed. The patient received 2 g of IV Ancef. Left lower extremity was then exsanguinated. Tourniquet was insufflated to 250 mmHg. Standard anterior lateral portal incision was made. Scope trocar was introduced. 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 At this time, attention was turned to medial compartment. There was noted to be significant synovitis but no loose or foreign bodies in medial compartment, and with use of spinal needle, anterior medial portal was created. 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 At this time, partial medial meniscectomy of the unstable flap was then done back to a stable base. The rest of the meniscus was found to be intact. Chondroplasty was then performed on the medial tibial plateau back to a stable rim. ACL was intact in the notch. Lateral compartment showed minimal chondromalacia changes. At this time, a chondroplasty was performed on the patella finding loose chondral flaps, and a partial synovectomy was performed in the anterior part of the knee as well. At this time, excess saline was drained from the knee. A 3-0 nylon simple suture was used for closure of the skin. The patient had a sterile soft dressing applied and sent to PACU in stable condition. NAYELI /[id number]
== END 2019-10-31 15:33 | disposition home or self-care (01) ==
LOC: JD.SDS 09:06
PROVIDERS: ATTEND Orthopaedic Surgery
DX: M23.322 Other meniscus derangements, posterior horn of medial meniscus, left knee (principal); M17.12 Unilateral primary osteoarthritis, left knee; M94.262 Chondromalacia, left knee; M65.862 Other synovitis and tenosynovitis, left lower leg; G89.29 Other chronic pain; I11.9 Hypertensive heart disease without heart failure; E78.00 Pure hypercholesterolemia, unspecified; I25.2 Old myocardial infarction; K21.9 Gastro-esophageal reflux disease without esophagitis; I25.10 Atherosclerotic heart disease of native coronary artery without angina pectoris; J45.40 Moderate persistent asthma, uncomplicated; Z87.891 Personal history of nicotine dependence; Z88.0 Allergy status to penicillin; Z88.1 Allergy status to other antibiotic agents; Z91.018 Allergy to other foods; Z88.8 Allergy status to other drugs, medicaments and biological substances; Z91.040 Latex allergy status; Z91.09 Other allergy status, other than to drugs and biological substances; Z79.51 Long term (current) use of inhaled steroids; Z79.02 Long term (current) use of antithrombotics/antiplatelets; Z79.899 Other long term (current) drug therapy; Z95.5 Presence of coronary angioplasty implant and graft
CPT/HCPCS: 29881; 87641; J0171; J2001; J2060; J2250; J2405; J2704; J3010; J3490; J7050; J7120; 01402

== ENCOUNTER 2020-11-11 15:43 | Emergency (ER) | payer MEDICARE, BC ==
--- NOTE | 2020-11-11 15:51 | EDM.PDOC ---
ED HPI GENERAL MEDICAL PROBLEM - General Chief Complaint: General Stated Complaint: [facility] Time Seen by Provider: 11/11/20 15:50 Source of Information: Reports: Patient History Limitations: Reports: No Limitations - History of Present Illness INITIAL COMMENTS - FREE TEXT/NARRATIVE: 65-year-old male presents to the ED per [facility] after suffering an allergic reaction or acute dyspnea after receiving COVID-[facility] vaccine [facility] [address] today. He states symptoms of shortness of breath started about 10 minutes after he received the Covid vaccine. Paramedics indicate that he received Xopenex inhalational treatments at the pharmacy x3 doses and did feel better for a period of time. However once the paramedics arrived they identify that he became more dyspneic again and the patient therefore elected to come to the ED. Paramedics gave him a dose of racemic epinephrine inhalational treatment and at this time he seems to feel better. He states he feels a bit of heaviness in his chest. He has no audible wheezing on exam. He reports that he is allergic to latex isopropyl alcohol , Claritin, Cipro and oranges. Many of these cause shortness of breath. Patient has never had an allergic reaction to a vaccine in the past including influenza. Patient states he has not had COVID- 19 illness to his knowledge. He indicates that the month of July he had a very sore throat for 10 to 15 days and then had a bad headache with a productive cough for several days. COVID-19 screening x2 that month however was negative. Still sound suspicious that he may have had COVID-19 illness and has antibodies to the virus. Onset: Today, Sudden Onset Date: 11/11/20 Onset Time: 15:00 Duration: Minutes:, Improving Location: Reports: Generalized (Normalized flushing and heaviness in his chest with shortness of breath. He reports it was similar to the type of reaction he gets from eating oranges. He feels much better now than he did at the pharmacy. Paramedics appreciate that the redness surrounding the injection site is much improved as well compared when they first looked at the injection site.) Quality: Reports: Other Severity: Moderate (Generalized allergic response with diffuse erythema mild pruritus and shortness of breath.) Improves with: Reports: Other (He did receive Xopenex inhalational treatments x3 at the pharmacy where he received the injection and felt better transiently. Once the paramedics arrived he started to feel unwell again and therefore elected to bring him to the ED. They gave him a racemic epinephrine treatment which seemed to help reduce his dyspnea. An IV has not been started by paramedics.) Worsens with: Reports: None Context: Reports: Other (Cute allergic reaction to COVID-19 vaccine). Denies: Activity, Exercise, Lifting, Sick Contact, Trauma Associated Symptoms: Reports: Malaise, Shortness of Breath, Other. Denies: Confusion, Chest Pain, Cough, cough w sputum, Diaphoresis, Fever/Chills, Headaches, Loss of Appetite, Nausea/Vomiting, Rash, Seizure, Syncope Treatments TELECOM ASSISTANT: Reports: Other (see below) (Hest heaviness patient has received Xopenex x3 doses at the pharmacy where she received a COVID-19 illness.) - Related Data Allergies Allergy/AdvReac Type Severity Reaction Status Date / Time ciprofloxacin [From Cipro] Allergy Rash Verified 11/11/20 15:54 COVID-19 vaccine, mRNA, Allergy Airway Verified 11/11/20 15:55 [id number], L Tightness isopropyl alcohol Allergy Shortness Verified 11/11/20 15:54 of Breath latex Allergy Swelling Verified 11/11/20 15:54 loratadine [From Claritin] Allergy Cannot Verified 11/11/20 15:54 Remember orange Allergy Shortness Verified 11/11/20 15:54 of Breath Penicillins Allergy Shortness Verified 11/11/20 15:54 of Breath perfume Allergy Shortness Verified 11/11/20 15:54 of Breath pseudoephedrine Allergy Cannot Verified 11/11/20 15:54 [From Sudafed] Remember Home Meds: Home Meds Doxazosin [Cardura] 8 mg PO BEDTIME 07/05/17 [History] Esomeprazole Magnesium [Nexium 24Hr] 10 mg PO BEDTIME 07/05/17 [History] Fluticasone Propionate [Flovent] 1 puff IH DAILY 07/05/17 [History] Metoprolol Tartrate 12.5 mg PO BID 07/05/17 [History] Simvastatin [Zocor] 20 mg PO BEDTIME 07/05/17 [History] Ticagrelor [Brilinta] 90 mg PO BID 07/05/17 [History] Levalbuterol Tartrate [Xopenex Hfa] 2 puff INH Q6H PRN 07/19/17 [History] Losartan [Cozaar] 25 mg PO BEDTIME 08/01/17 [History] Montelukast Sodium [Singulair] 10 mg PO DAILY 10/30/19 [History] Nitroglycerin [Nitrostat] 0.4 mg SL ASDIRECTED PRN 10/30/19 [History] Acetaminophen/HYDROcodone [Lorain 325-5 MG] 1 - 2 tab PO Q6H PRN #20 tablet 10/31/19 [Rx] EPINEPHrine [Epipen 2-Vicente] 0.3 mg IJ ASDIRECTED #2 auto.injct 11/11/20 [Rx] Past Medical History HEENT History: Reports: None Cardiovascular History: Reports: CAD, High Cholesterol, Hypertension, CT (2017), Stents (x2 2017) Respiratory History: Reports: Asthma Gastrointestinal History: Reports: GERD Genitourinary History: Reports: Renal Calculus [employer]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 Musculoskeletal History: Reports: Other (See Below) Other Musculoskeletal History: LEFT KNEE PAIN Neurological History: Reports: None Psychiatric History: Reports: Panic Attack Endocrine/Metabolic History: Reports: None Immunologic History: Reports: None Oncologic (Cancer) History: Reports: None Dermatologic History: Reports: None - Infectious Disease History Infectious Disease History: Reports: None - Past Surgical History Head Surgeries/Procedures: Reports: None HEENT Surgical History: Reports: Naso-Sinus Surgery Cardiovascular Surgical History: Reports: None Respiratory Surgical History: Reports: None GI Surgical History: Reports: Appendectomy, Cholecystectomy Male Surgical History: Reports: Cystectomy, Lithotripsy ([facility]), Vasectomy, Other (See Below) Other Male Surgeries/Procedures: LEFT URETER STENT- HAS BEEN REMOVED Endocrine Surgical History: Reports: None Neurological Surgical History: Reports: None Musculoskeletal Surgical History: Reports: Other (See Below) Other Musculoskeletal Surgeries/Procedures:: LEFT HAND SURGERY Oncologic Surgical History: Reports: None Dermatological Surgical History: Reports: None Social & Family History - Family History Family Medical History: No Pertinent Family History - Caffeine Use Caffeine Use: Reports: Soda - Living Situation & Occupation Living situation: Reports: Occupation: Employed ED ROS GENERAL - Review of Systems Review Of Systems: See Below Constitutional: Reports: Weakness. Denies: Fever, Chills, Malaise, Fatigue, Decreased Appetite, Weight Loss (Mild) HEENT: Reports: Glasses Respiratory: Reports: Shortness of Breath. Denies: Wheezing, Pleuritic Chest Pain, Cough, Sputum Cardiovascular: Reports: Chest Pain (Central chest heaviness with difficulty breathing. He reports much better now than it was at the clinic.), Blood Pressure Problem, Dyspnea on Exertion (On occasion. Has underlying COPD), Lightheadedness. Denies: Claudication, Edema (Mild at the clinic better now.), Orthopnea (Hypertension.) GI/Abdominal: Reports: No Symptoms : Reports: No Symptoms Musculoskeletal: Reports: Back Pain, Joint Pain Skin: Reports: Other (He has diffuse erythema face V-shaped upper neck with slight swelling of the upper eyelids.) Neurological: Reports: No Symptoms Psychiatric: Reports: No Symptoms Hematologic/Lymphatic: Reports: No Symptoms Immunologic: Reports: No Symptoms ED EXAM, GENERAL - Physical Exam Exam: See Below Exam Limited By: No Limitations General Appearance: Alert, WD/WN, Mild Distress, Other (Patient does have diffuse mild erythema of the head neck and face. He has mild pruritus. Still has a bit of heaviness in his central chest he reports. BP was 117/68 with heart rate 85 and sinus on the monitor. Socks was 99% in the exam room. Respiratory rate 16/min.) Eye Exam: Bilateral Eye: Normal Inspection, Periorbital Changes Throat/Mouth: Normal Lips, Normal Teeth, Normal Oropharynx, Other (For the mouth tongue and uvula are normal.) Head: Atraumatic, Normocephalic Neck: Normal Inspection, Supple, Non-Tender, Full Range of Motion. No: Lymphadenopathy (L), Lymphadenopathy (R) Respiratory/Chest: No Respiratory Distress, Lungs Clear, Normal Breath Sounds, No Accessory Muscle Use, Other (Mild tachypnea at rest. No wheezing identified.) Cardiovascular: Normal Peripheral Pulses, Regular Rate, Rhythm, No Edema, No Gallop, No JVD, Systolic Murmur (I thought I could hear a systolic murmur at the left lower sternal border of grade 1 or less out of 6. Difficult to hear due to rapid respiratory rate.) Peripheral Pulses: 2+: Posterior Tibial (L), Posterior Tibial (R), Dorsalis Pedis (L), Dorsalis Pedis (R), 3+: Carotid (L), Carotid (R) GI/Abdominal: Normal Bowel Sounds, Soft, Non-Tender, No Organomegaly, No Mass, Pelvis Stable Back Exam: Normal Inspection, Full Range of Motion. No: CVA Tenderness (L), CVA Tenderness (R) Extremities: Normal Inspection, Normal Range of Motion, Non-Tender, No Pedal Edema Neurological: Alert, Oriented, CN II-XII Intact, Normal Cognition Psychiatric: Normal Affect, Normal Mood Skin Exam: Warm, Dry, Intact, Erythema (Patient has some diffuse erythema of the face and the of the upper neck. No urticaria. Mild pruritus. I believe his upper eyelids look a little edematous on exam.) Course - Vital Signs Last Recorded V/S: Last Vital Signs Temp 36.8 C 11/11/20 15:52 Pulse 86 11/11/20 15:52 Resp 20 11/11/20 15:52 BP 136/83 11/11/20 15:52 Pulse Ox 91 L 11/11/20 15:52 - Orders/Labs/Meds Orders: Active Orders 24 hr Category Date Time Status RT Aerosol Therapy [RC] ASDIRECTED Care 11/11/20 16:25 Active RT Aerosol Therapy [RC] ASDIRECTED Care 11/11/20 16:38 Active Sodium Chloride 0.9% Med 11/11/20 16:25 Active 3 ml INH ASDIRECTED PRN Sodium Chloride 0.9% Med 11/11/20 16:38 Active 3 ml INH ASDIRECTED PRN Sodium Chloride 0.9% [Normal Saline] 1,000 ml Med 11/11/20 16:00 Active IV ASDIRECTED Medication Orders Sodium Chloride (Normal Saline) 1,000 mls @ 150 mls/hr IV ASDIRECTED AMBROSIO Last Admin: 11/11/20 16:13 Dose: 150 mls/hr Documented by: LUIS Sodium Chloride (Sodium Chloride 0.9%) 3 ml INH ASDIRECTED PRN PRN Reason: mix with racepinephrine neb Last Admin: 11/11/20 16:26 Dose: 3 ml Documented by: ZAHRA Sodium Chloride (Sodium Chloride 0.9%) 3 ml INH ASDIRECTED PRN PRN Reason: mix with racepinephrine neb Meds: Medications Generic Name Dose Route Start Last Admin Trade Name Freq PRN Reason Stop Dose Admin Sodium Chloride 1,000 mls @ 150 mls/hr 11/11/20 16:00 11/11/20 16:13 Normal Saline IV 150 mls/hr ASDIRECTED AMBROSIO Administration Sodium Chloride 3 ml 11/11/20 16:25 11/11/20 16:26 Sodium Chloride 0.9% INH 3 ml ASDIRECTED PRN Administration mix with racepinephrine neb Sodium Chloride 3 ml 11/11/20 16:38 Sodium Chloride 0.9% INH ASDIRECTED PRN mix with racepinephrine neb Discontinued Medications Generic Name Dose Route Start Last Admin Trade Name Freq PRN Reason Stop Dose Admin Diphenhydramine HCl 50 mg 11/11/20 15:48 11/11/20 16:13 Benadryl IVPUSH 11/11/20 15:49 50 mg ONETIME ONE Administration Epinephrine HCl Confirm 11/11/20 16:17 11/11/20 16:40 Adrenalin Administered 11/11/20 16:18 Not Given Dose 1 mg .ROUTE .STK-MED ONE Epinephrine HCl 0.3 mg 11/11/20 16:38 11/11/20 16:41 Adrenalin IM 11/11/20 16:39 0.3 mg ONETIME ONE Administration Famotidine 20 mg 11/11/20 15:49 11/11/20 16:13 Pepcid IVPUSH 11/11/20 15:50 20 mg ONETIME ONE Administration Lorazepam Confirm 11/11/20 16:17 11/11/20 16:40 Ativan Administered 11/11/20 16:18 Not Given Dose 2 mg .ROUTE .STK-MED ONE Lorazepam 1 mg 11/11/20 16:38 11/11/20 16:40 Ativan IVPUSH 11/11/20 16:39 1 mg ONETIME ONE Administration Methylprednisolone Sodium Succinate 125 mg 11/11/20 15:50 11/11/20 16:13 Solu-Medrol IVPUSH 11/11/20 15:51 125 mg ONETIME ONE Administration Racepinephrine Confirm 11/11/20 16:17 11/11/20 16:25 S-2 2.25% Administered 11/11/20 16:18 0.5 ml Dose Administration 0.5 ml .ROUTE .STK-MED ONE Racepinephrine 0.5 ml 11/11/20 16:25 11/11/20 16:26 S-2 2.25% NEB 11/11/20 16:26 Not Given ONETIME ONE Racepinephrine 0.5 ml 11/11/20 16:38 11/11/20 16:40 S-2 2.25% NEB 11/11/20 16:39 Not Given ONETIME ONE - Radiology Interpretation Free Text/Narrative:: 65-year-old male presents to the ED per [facility] from [address] [place] [address] on [facility] after receiving a COVID-19 vaccination today. And has allergies to Cipro, isopropyl alcohol, latex and Claritin and oranges. He reports no previous allergic reaction to any vaccine. There is some history to suggest he was quite ill in the month of July last year with sore throat sinus congestion nasal drip paroxysmal productive cough but testing x2 for Covid was negative. Patient developed symptoms approximately 10 minutes after COVID- 19 injection with diffuse shortness of breath. This produced a bit of a panic attack. He was treated with Xopenex inhalational treatment x3 at the pharmacy and paramedics were summoned. He felt better after the Xopenex shots and initially decided he was not going to come to the emergency room. However while the paramedics were still there he developed increased shortness of breath again. Decision made to transport him to the ER and he received racemic epinephrine inhalational treatment in route to the hospital. Upon arrival in the ED he feels improved. Paramedics identified that his injection site erythe ma is markedly improved at this time. Clinically the patient has facial erythema and erythema in the V shape of his upper anterior neck with reported mild pruritus. Reports he still has a heaviness in his central chest with difficulty breathing. Patient is not tachypneic and O2 sats are 99% room air. - Re-Assessments/Exams Free Text/Narrative Re-Assessment/Exam: 11/11/20 16:29 patient developed acute onset of upper airway distress sitting on the edge of the bed unable to breathe. Part of this was a severe anxiety reaction. He did have laryngeal stridor but he still had fairly good air entry to both lung bases on exam. He was treated with racemic epinephrine by mask and then received 0.3 mg of epinephrine left deltoid area. He was also given Ativan 2 mg IV stat. Within 5 to 10 minutes patient started to settle and begin to speak again. He felt dizzy and lightheaded and diffuse weakness in his extremities. Exam reveals good air entry to both lung bases and O2 sats improved to 96 to 100% on room air. Laryngeal stridor completely gone on last exam. Patient will be monitored in the ER for at least another 4 to 5 hours to make sure that he does not have any similar reactions. If he does he may require admission to hospital for observation. Nurses in the ER appreciate that he has had similar reactions like this to perfumes and other smells in the past observed while in hospital. 11/11/20 16:37 patient is doing better. Heart rate is 94 O2 sats 95 to 96%. Patient is able to speak and phonate normally. He is doing much better. There is a good chance she may have reacted to one of the stabilizing chemicals in the back seen. Of note he did have a influenza vaccine this year without any problems and has had a many years in the past with no problems. We will certainly be advised not to take any further Covid 19 vaccines. 11/11/20 17:41 reports he is feeling very mildly pruritic. He does take Benadryl at home. He had 50 mg given IV earlier in the ED. Airway is clear at this time with no stridor and he has been sleeping for the most part for the last hour. O2 sats remained 96% heart rate is 96 and sinus. 11/11/20 19:13 He has been sleeping for the most part since receiving Benadryl and Ativan IV. Lungs are clear to auscultation percussion no respiratory stridor. O2 sats are staying around 95 to 96% on room air. Departure - Departure Time of Disposition: 19:56 Disposition: Home, Self-Care 01 Condition: Fair Clinical Impression: Vaccine reaction Acute allergic reaction Qualifiers: Encounter type: initial encounter Qualified Code(s): T78.40XA - Allergy, unspecified, initial encounter - Discharge Information *PRESCRIPTION DRUG MONITORING PROGRAM REVIEWED*: Not Applicable *COPY OF PRESCRIPTION DRUG MONITORING REPORT IN PATIENT ANILA: Not Applicable Prescriptions: EPINEPHrine [Epipen 2-Vicente] 0.3 mg IJ ASDIRECTED #2 auto.injct Referrals: PCP,Unknown [Ordering Only Provider] - Forms: ED Department Discharge Additional Instructions: His room today in regards to an acute allergic reaction to COVID-19 vaccination. You started to develop troubles breathing shortly after I believe reportedly within 10 minutes of receiving the COVID-[address] [facility] on [address] today. You were treated with Xopenex inhalational treatment at the pharmacy with transient improvement in breathing. At the time the paramedics arrived he started to develop increased shortness of breath while they were there. They treated you with inhalational racemic epinephrine which did improve your breathing for about 20 to 30 minutes. Shortly after arriving in the emergency room he developed acute respiratory distress due to laryngospasm I spasm around the vocal cords with marked difficulty getting your breath. You were once again treated with inhalational racemic epinephrine as well as epinephrine 0.3 mg subcutaneously via injection. You were also given initial doses of Benadryl 50 mg IV with Pepcid 20 mg IV and Solu-Medrol a steroid 125 mg IV. These medications were given prior to your sudden deterioration while in the emergency room. With the above treatment your airway opened up and you were able to breathe normally for the next 4 worse. Combination of Benadryl and Ativan made you quite sleepy and you slept most of the time in the ED. Lungs remain clear and airway remained open. Reportedly some transient itching appreciated by you. At home you may take Benadryl 50 mg every 6 hours if needed for itching and if necessary return to the emergency room if you experience any further trouble breathing. I have also prescribed an EpiPen which you have used in the past to have available to you in case you develop any similar severe allergic reactions particularly to wasp or bee stings which you have appreciated problems within the past. You are to never receive COVID-19 vaccine ever again in your lifetime. Sepsis Event Note (ED) - Focused Exam Vital Signs: Vital Signs Temp Pulse Resp BP Pulse Ox 11/11/20 15:52 36.8 C 86 20 136/83 91 L - My Orders Last 24 Hours: My Active Orders 11/11/20 16:00 Sodium Chloride 0.9% [Normal Saline] 1,000 ml IV ASDIRECTED 11/11/20 16:25 RT Aerosol Therapy [RC] ASDIRECTED Sodium Chloride 0.9% 3 ml INH ASDIRECTED PRN 11/11/20 16:38 RT Aerosol Therapy [RC] ASDIRECTED Sodium Chloride 0.9% 3 ml INH ASDIRECTED PRN - Assessment/Plan Last 24 Hours: My Active Orders 11/11/20 16:00 Sodium Chloride 0.9% [Normal Saline] 1,000 ml IV ASDIRECTED 11/11/20 16:25 RT Aerosol Therapy [RC] ASDIRECTED Sodium Chloride 0.9% 3 ml INH ASDIRECTED PRN 11/11/20 16:38 RT Aerosol Therapy [RC] ASDIRECTED Sodium Chloride 0.9% 3 ml INH ASDIRECTED PRN
[2020-11-11 15:54] VITALS: BP 136/83; PULSE 86
[2020-11-11] MEDS: methylPREDNISolone Sodium Succinate 125 MG/2 ML SDV IVPUSH ONE (16:13)
[2020-11-11] MEDS: diphenhydrAMINE 50 MG/ML SDV IVPUSH ONE (16:13)
[2020-11-11] MEDS: Famotidine 20 MG/2 ML SDV IVPUSH ONE (16:13)
[2020-11-11] MEDS: Sodium Chloride 0.9% 1,000 ML IV SCH (16:13)
[2020-11-11] MEDS: Racepinephrine 2.25% 0.5 ML Neb Soln ONE (16:25)
[2020-11-11] MEDS: Racepinephrine 2.25% 0.5 ML Neb Soln NEB ONE ×2 (16:26→16:40)
[2020-11-11] MEDS: Sodium Chloride 0.9% Inhalation Soln 3 ML Neb INH PRN (16:26)
[2020-11-11] MEDS ORDERED: Sodium Chloride 0.9% Inhalation Soln 3 ML Neb INH PRN (16:38)
[2020-11-11] MEDS: EPINEPHrine 1 MG/ML SDV ONE (16:40)
[2020-11-11] MEDS: LORazepam 2 MG/ML SDV IVPUSH ONE (16:40)
[2020-11-11] MEDS: LORazepam 2 MG/ML SDV ONE (16:40)
[2020-11-11] MEDS: EPINEPHrine 1 MG/ML SDV IM ONE (16:41)
== END 2020-11-11 20:23 | disposition home or self-care (01) ==
LOC: JD.ED 15:43
DX: R06.02 Shortness of breath (principal); R53.81 Other malaise; T80.62XA Other serum reaction due to vaccination, initial encounter; I25.10 Atherosclerotic heart disease of native coronary artery without angina pectoris; E78.00 Pure hypercholesterolemia, unspecified; I10 Essential (primary) hypertension; I25.2 Old myocardial infarction; J45.909 Unspecified asthma, uncomplicated; K21.9 Gastro-esophageal reflux disease without esophagitis; Z88.1 Allergy status to other antibiotic agents; Z88.7 Allergy status to serum and vaccine; Z88.8 Allergy status to other drugs, medicaments and biological substances; Z91.040 Latex allergy status; Z91.018 Allergy to other foods; Z88.0 Allergy status to penicillin; Z91.048 Other nonmedicinal substance allergy status; Z79.899 Other long term (current) drug therapy
CPT/HCPCS: 94640; 96372; 96374; 96375; 99285; A9270; J0171; J1200; J2060; J2930; J3490; J7030; 99284

== ENCOUNTER 2020-12-25 10:45 | Emergency (ER) | payer MEDICARE, BC ==
[2020-12-25 11:00] VITALS: BP 133/73; PULSE 66
[2020-12-25] MEDS ORDERED: Sodium Chloride 0.9% 10 ML Syringe FLUSH PRN ×2 (11:09→12:05)
[2020-12-25] MEDS ORDERED: Sodium Chloride 0.9% 1,000 ML IV ONE (11:18)
--- NOTE | 2020-12-25 11:19 | EDM.PDOC ---
ED HPI GENERAL MEDICAL PROBLEM - General Chief Complaint: Abdominal Pain Stated Complaint: LOW ABDOMINAL PAIN Time Seen by Provider: 12/25/20 11:00 Source of Information: Reports: Patient History Limitations: Reports: No Limitations - History of Present Illness INITIAL COMMENTS - FREE TEXT/NARRATIVE: 65-year-old male presents to the emergency department complaints of lower abdo caleb pain. Patient states that this started about 5 days ago. He states that it is mid lower abdominal pain just below the umbilicus. It feels like cramping pressure. States he has a history of diverticulitis about 2 years ago however this does not feel similar to that. He went to [facility] on Monday and states that they did lab studies and told him he had a bacterial infection and started him on Levaquin and Flagyl. States he then started vomiting last evening and the abdominal pain became more severe. He vomited once this morning at about 630 and had one bout of diarrhea. He states he stopped taking his Flagyl yesterday but did continue to take his Levaquin. He was able to eat a piece of toast and drink some water this morning. States he did have fever and chills 5 days ago however has not had that since. Middle Abdominal Pain Score (Numeric/FACES): 4 - Related Data Allergies Allergy/AdvReac Type Severity Reaction Status Date / Time ciprofloxacin [From Cipro] Allergy Rash Verified 12/25/20 11:00 COVID-19 vaccine, mRNA, Allergy Airway Verified 12/25/20 11:00 [id number], L Tightness isopropyl alcohol Allergy Shortness Verified 12/25/20 11:00 of Breath latex Allergy Swelling Verified 12/25/20 11:00 loratadine [From Claritin] Allergy Cannot Verified 12/25/20 11:00 Remember orange Allergy Shortness Verified 12/25/20 11:00 of Breath Penicillins Allergy Shortness Verified 12/25/20 11:00 of Breath perfume Allergy Shortness Verified 12/25/20 11:00 of Breath pseudoephedrine Allergy Cannot Verified 12/25/20 11:00 [From Sudafed] Remember Home Meds: Home Meds Doxazosin [Cardura] 8 mg PO BEDTIME 07/05/17 [History] Esomeprazole Magnesium [Nexium 24Hr] 10 mg PO BEDTIME 07/05/17 [History] Fluticasone Propionate [Flovent] 1 puff IH DAILY 07/05/17 [History] Metoprolol Tartrate 12.5 mg PO BID 07/05/17 [History] Simvastatin [Zocor] 20 mg PO BEDTIME 07/05/17 [History] Ticagrelor [Brilinta] 90 mg PO BID 07/05/17 [History] Levalbuterol Tartrate [Xopenex Hfa] 2 puff INH Q6H PRN 07/19/17 [History] Losartan [Cozaar] 25 mg PO BEDTIME 08/01/17 [History] Montelukast Sodium [Singulair] 10 mg PO DAILY 10/30/19 [History] Nitroglycerin [Nitrostat] 0.4 mg SL ASDIRECTED PRN 10/30/19 [History] EPINEPHrine [Epipen 2-Vicente] 0.3 mg IJ ASDIRECTED #2 auto.injct 11/11/20 [Rx] Levofloxacin 500 mg PO DAILY 12/25/20 [History] metroNIDAZOLE [Metronidazole] 250 mg PO BID 12/25/20 [History] Past Medical History HEENT History: Reports: None Cardiovascular History: Reports: CAD, High Cholesterol, Hypertension, [place], Stents Respiratory History: Reports: Asthma Gastrointestinal History: Reports: GERD Genitourinary History: Reports: Renal Calculus BLADE CHANGER History: Reports: None Musculoskeletal History: Reports: Other (See Below) Other Musculoskeletal History: LEFT KNEE PAIN Neurological History: Reports: None Psychiatric History: Reports: Panic Attack Endocrine/Metabolic History: Reports: None Immunologic History: Reports: None Oncologic (Cancer) History: Reports: None Dermatologic History: Reports: None - Infectious Disease History Infectious Disease History: Reports: None - Past Surgical History Head Surgeries/Procedures: Reports: None HEENT Surgical History: Reports: Naso-Sinus Surgery Cardiovascular Surgical History: Reports: None Respiratory Surgical History: Reports: None GI Surgical History: Reports: Appendectomy, Cholecystectomy Male Surgical History: Reports: Cystectomy, Lithotripsy ([facility]), Vasectomy, Other (See Below) Other Male Surgeries/Procedures: LEFT URETER STENT- HAS BEEN REMOVED Endocrine Surgical History: Reports: None Neurological Surgical History: Reports: None Musculoskeletal Surgical History: Reports: Other (See Below) Other Musculoskeletal Surgeries/Procedures:: LEFT HAND SURGERY Oncologic Surgical History: Reports: None Dermatological Surgical History: Reports: None Social & Family History - Family History Family Medical History: No Pertinent Family History - Caffeine Use Caffeine Use: Reports: Soda - Living Situation & Occupation Living situation: Reports: Occupation: Employed ED ROS GENERAL - Review of Systems Review Of Systems: See Below Constitutional: Reports: Fever, Chills HEENT: Reports: No Symptoms Respiratory: Reports: No Symptoms Cardiovascular: Reports: No Symptoms Endocrine: Reports: No Symptoms GI/Abdominal: Reports: Abdominal Pain (Periumbilical), Diarrhea (X1 episode this morning), Nausea (Last night and this morning), Vomiting (Left night and this morning) : Reports: No Symptoms Musculoskeletal: Reports: No Symptoms Skin: Reports: No Symptoms Neurological: Reports: No Symptoms Psychiatric: Reports: No Symptoms Hematologic/Lymphatic: Reports: No Symptoms Immunologic: Reports: No Symptoms ED EXAM, GI/ABD - Physical Exam Exam: See Below Exam Limited By: No Limitations General Appearance: Alert, WD/WN, No Apparent Distress Ears: Normal External Exam, Hearing Grossly Normal Nose: Normal Inspection Throat/Mouth: Normal Inspection, Normal Voice, No Airway Compromise Head: Atraumatic, Normocephalic Neck: Normal Inspection, Supple, Non-Tender, Full Range of Motion Respiratory/Chest: No Respiratory Distress, Lungs Clear, Normal Breath Sounds, No Accessory Muscle Use, Chest Non-Tender Cardiovascular: Normal Peripheral Pulses, Regular Rate, Rhythm, No Edema, No Murmur GI/Abdominal Exam: Normal Bowel Sounds, No Distention, Tender (Left and right lower quadrant with palpation). No: Soft (Semifirm) (Male) Exam: Deferred Rectal (Males) Exam: Deferred Back Exam: Normal Inspection, Full Range of Motion Extremities: Normal Inspection, Normal Range of Motion, Non-Tender, No Pedal Edema, Normal Capillary Refill Neurological: Alert, Oriented, Normal Cognition Psychiatric: Normal Affect, Normal Mood Skin Exam: Warm, Dry, Intact, Normal Color, No Rash Lymphatic: No Adenopathy Course - Vital Signs Text/Narrative:: 65-year-old male presenting with periumbilical pain that started about 5 days ago. He was seen at [facility] 3 days ago and have lab work completed and was told he had a bacterial infection and was started on Levaquin and Flagyl. States that the next day he felt completely better however last night he started vomiting and periumbilical pain worsened. States he did have 1 bout of diarrhea stool this morning and vomited once but was able to eat some toast and drink some water. He then presented to [facility] where they told him that he needed a CT scan and there scanner was down so he needed to be evaluated here in the emergency department. I have ordered labs, CT of the abdomen and pelvis, and normal saline as the patient is likely dehydrated due to vomiting since last night. Last Recorded V/S: Last Vital Signs Temp 97.6 F 12/25/20 10:54 Pulse 66 12/25/20 10:54 Resp 18 12/25/20 10:54 BP 133/73 12/25/20 10:54 Pulse Ox 99 12/25/20 10:54 - Orders/Labs/Meds Orders: Active Orders 24 hr Category Date Time Status Sodium Chloride 0.9% [Saline Flush] Med 12/25/20 11:09 Active 10 ml FLUSH ASDIRECTED PRN Sodium Chloride 0.9% [Saline Flush] Med 12/25/20 12:05 Active 10 ml FLUSH ONETIME PRN Saline Lock Insert [OM.PC] Stat Oth 12/25/20 11:09 Ordered Medication Orders Sodium Chloride (Sodium Chloride 0.9% 10 Ml Syringe) 10 ml FLUSH ASDIRECTED PRN PRN Reason: Keep Vein Open Last Admin: 12/25/20 12:01 Dose: 10 ml Documented by: MARCIN Sodium Chloride (Sodium Chloride 0.9% 10 Ml Syringe) 10 ml FLUSH ONETIME PRN PRN Reason: IV FLUSH Last Admin: 12/25/20 12:39 Dose: 10 ml Documented by: GARETH Labs: Laboratory Tests 12/25/20 12/25/20 12/25/20 Range/Units 11:12 11:12 12:51 WBC 8.50 (4.23-9.07) K/mm3 RBC 5.08 (4.63-6.08) M/mm3 Hgb 15.5 D (13.7-17.5) gm/dl Hct 46.7 (40.1-51.0) % MCV 91.9 (79.0-92.2) fl MCH 30.5 (25.7-32.2) pg MCHC 33.2 (32.2-35.5) g/dl RDW Std Deviation 44.0 H (35.1-43.9) fL Plt Count 280 (163-337) K/mm3 MPV 10.3 (9.4-12.3) fl Neut % (Auto) 74.1 H (34.0-67.9) % Lymph % (Auto) 16.2 L (21.8-53.1) % [place] % (Auto) 7.8 (5.3-12.2) % Eos % (Auto) 1.1 (0.8-7.0) Baso % (Auto) 0.2 (0.1-1.2) % Neut # (Auto) 6.30 H (1.78-5.38) K/mm3 Lymph # (Auto) 1.38 (1.32-3.57) K/mm3 [place] # (Auto) 0.66 (0.30-0.82) K/mm3 Eos # (Auto) 0.09 (0.04-0.54) K/mm3 Baso # (Auto) 0.02 (0.01-0.08) K/mm3 Sodium 148 H (136-145) mEq/L Potassium 4.2 (3.5-5.1) mEq/L Chloride 108 H (98-107) mEq/L Carbon Dioxide 27 (21-32) mEq/L Anion Gap 17.2 H (5-15) BUN 17 (7-18) mg/dL Creatinine 1.4 H (0.7-1.3) mg/dL Est Cr Clr Drug Dosing 54.53 mL/min Estimated GFR (MDRD) 51 (>60) mL/min BUN/Creatinine Ratio 12.1 L (14-18) Glucose 96 (80-115) mg/dL Calcium 9.2 (8.5-10.1) mg/dL Magnesium 2.0 (1.8-2.4) mg/dl Total Bilirubin 0.4 (0.2-1.0) mg/dL AST 27 (15-37) U/L ALT 41 (16-63) U/L Alkaline Phosphatase 82 (46-116) U/L C-Reactive Protein 2.1 H* (<1.0) mg/dL Total Protein 8.0 (6.4-8.2) g/dl Albumin 3.6 (3.4-5.0) g/dl Globulin 4.4 gm/dL Albumin/Globulin Ratio 0.8 L (1-2) Urine Color Yellow (Yellow) Urine Appearance Clear (Clear) Urine pH 6.0 (5.0-8.0) Ur Specific [place] 1.015 (1.005-1.030) Urine Protein Negative (Negative) Urine Glucose (UA) Negative (Negative) Urine Ketones Negative (Negative) Urine Occult Blood Negative (Negative) Urine Nitrite Negative (Negative) Urine Bilirubin Negative (Negative) Urine Urobilinogen 0.2 (0.2-1.0) Ur Leukocyte Esterase Negative (Negative) Meds: Medications Generic Name Dose Route Start Last Admin Trade Name Freq PRN Reason Stop Dose Admin Sodium Chloride 10 ml 12/25/20 11:09 12/25/20 12:01 Sodium Chloride 0.9% 10 Ml Syringe FLUSH 10 ml ASDIRECTED PRN Administration Keep Vein Open Sodium Chloride 10 ml 12/25/20 12:05 12/25/20 12:39 Sodium Chloride 0.9% 10 Ml Syringe FLUSH 10 ml ONETIME PRN Administration IV FLUSH Discontinued Medications Generic Name Dose Route Start Last Admin Trade Name Freq PRN Reason Stop Dose Admin Diatrizoate Meglum/Diatrizoate Sod 120 ml 12/25/20 12:05 12/25/20 12:39 Diatrizoate Meglumine/Diatrizoate Sodium 37% 120 Ml Bottle PO 12/25/20 12:06 45 ml ONETIME ONE Administration Sodium Chloride 1,000 mls @ 999 mls/hr 12/25/20 11:18 12/25/20 11:40 Normal Saline IV 12/25/20 12:18 999 mls/hr ONETIME ONE Administration Iopamidol 50 ml 12/25/20 12:05 12/25/20 12:39 Iopamidol 612 Mg/Ml 50 Ml Sdv IVPUSH 12/25/20 12:06 50 ml ONETIME ONE Administration Iopamidol 100 ml 12/25/20 12:05 12/25/20 12:39 Iopamidol 612 Mg/Ml 100 Ml Bottle IVPUSH 12/25/20 12:06 100 ml ONETIME ONE Administration - Re-Assessments/Exams Free Text/Narrative Re-Assessment/Exam: 12/25/20 12:33 Hematology is essentially unremarkable, chemistry reveals a sodium of 148, potassium 4.2, chloride 108, anion gap 17.2, BUN 17, creatinine 1.4, glucose is 96, magnesium 2.0, C-reactive protein 2.1, Awaiting urinalysis and CT results. 12/25/20 13:17 CT of the abdomen and pelvis radiologist impression: 1. Findings compatible with mild to moderate diverticulitis within the sigmoid colon. Very small amount of extraluminal air is seen. No fluid collections are seen to indicate abscess at this time. 2. Other findings as noted above which are nonacute. Pt will be discharged to home with recommendations to continue his course of flagyl and levaquin as previously prescribed. Will need to follow up with his primary care provider within 10 days of starting antibiotics. Departure - Departure Time of Disposition: 13:20 Disposition: Home, Self-Care 01 Condition: Good Clinical Impression: Diverticulitis - Discharge Information Instructions: Diverticulitis, [id number] Referrals: Noe Cedillo MD [Primary Care Provider] - Forms: ED Department Discharge Additional Instructions: You were seen in the emergency department today with complaints of left lower quadrant abdominal pain. You were recently seen at [facility] and diagnosed with diverticulitis for which you were started on Levaquin and Flagyl. Labs and CT scan were completed today. CT scan did reveal that you do have diverticulitis. Your lab work reveals that the infection seems to be resolving however you do need to continue taking your Levaquin and Flagyl as previously prescribed until you complete your course of antibiotics. You will need to follow-up with your primary care physician within 10 days of starting your ant ibiotics. Strongly recommend that you schedule this as soon as you get home today. Should your condition worsen or change do not hesitate to return to the emergency department. Sepsis Event Note (ED) - Evaluation Sepsis Screening Result: No Definite Risk - Focused Exam Vital Signs: Vital Signs Temp Pulse Resp BP Pulse Ox 12/25/20 10:54 97.6 F 66 18 133/73 99 - My Orders Last 24 Hours: My Active Orders 12/25/20 11:09 Sodium Chloride 0.9% [Saline Flush] 10 ml FLUSH ASDIRECTED PRN Saline Lock Insert [OM.PC] Stat 12/25/20 12:05 Sodium Chloride 0.9% [Saline Flush] 10 ml FLUSH ONETIME PRN - Assessment/Plan Last 24 Hours: My Active Orders 12/25/20 11:09 Sodium Chloride 0.9% [Saline Flush] 10 ml FLUSH ASDIRECTED PRN Saline Lock Insert [OM.PC] Stat 12/25/20 12:05 Sodium Chloride 0.9% [Saline Flush] 10 ml FLUSH ONETIME PRN
[2020-12-25] MEDS ORDERED: Iopamidol 612 MG/ML 50 ML SDV IVPUSH ONE (12:05)
[2020-12-25] MEDS ORDERED: Iopamidol 612 MG/ML 100 ML Bottle IVPUSH ONE (12:05)
[2020-12-25] MEDS ORDERED: Diatrizoate Meglumine/Diatrizoate Sodium 37% 120 ML Bottle PO ONE (12:05)
--- NOTE | 2020-12-25 13:08 | CT ---
CT abdomen and pelvis Technique: Multiple axial sections were obtained from above the dome of the diaphragm inferiorly through the pubic symphysis. Intravenous and oral contrast was utilized. Delayed images were also obtained through the pelvis. Reconstructed coronal and sagittal images were obtained. Comparison: Prior CT abdomen and pelvis exam 07/10/13. Findings: Inflammatory change is seen within the sigmoid colon. This occurs in an area of diverticulosis and is compatible with mild to moderate diverticulitis. No free fluid is seen to indicate discrete abscess at this time. There is a minimal amount of free air being seen next to this area of diverticulitis. Visualized lung bases show slight atelectasis on the left side. Liver contains no focal parenchymal abnormality. Spleen is normal in size. Adrenal glands show no nodule. Pancreas shows no discrete abnormality. Gallbladder is not seen. There is evidence of surgical clips from prior cholecystectomy. Kidneys show symmetric contrast enhancement with no hydronephrosis. Ureters are seen and show no evidence of ureteral calculi. Appendix is not seen with certainty. Aorta shows no aneurysm. No retroperitoneal adenopathy or mesenteric abnormalities are seen. No pelvic mass or adenopathy is seen. Small fat-containing left inguinal hernia is noted. Delayed images show contrast within both distal ureters and bladder. Bone window settings were reviewed which show scattered degenerative change within the spine. Impression: 1. Findings compatible with mild to moderate diverticulitis within the sigmoid colon. Very small amount of extraluminal air is seen. No fluid collections are seen to indicate abscess at this time. 2. Other findings as noted above which are nonacute. Diagnostic code #3
== END 2020-12-25 13:50 | disposition home or self-care (01) ==
LOC: JD.ED 10:45
DX: K57.32 Diverticulitis of large intestine without perforation or abscess without bleeding (principal); I25.10 Atherosclerotic heart disease of native coronary artery without angina pectoris; E78.00 Pure hypercholesterolemia, unspecified; I10 Essential (primary) hypertension; I25.2 Old myocardial infarction; J45.909 Unspecified asthma, uncomplicated; K21.9 Gastro-esophageal reflux disease without esophagitis; Z88.1 Allergy status to other antibiotic agents; Z88.7 Allergy status to serum and vaccine; Z88.8 Allergy status to other drugs, medicaments and biological substances; Z91.040 Latex allergy status; Z91.018 Allergy to other foods; Z88.0 Allergy status to penicillin; Z91.048 Other nonmedicinal substance allergy status; Z79.899 Other long term (current) drug therapy
CPT/HCPCS: 36415; 74177; 80053; 81003; 83735; 85025; 86140; 99284; J7030; Q9963; Q9967

== ENCOUNTER 2021-04-26 11:14 | Emergency (ER) | payer MEDICARE, BC ==
[2021-04-26 11:34] VITALS: BP 145/70; PULSE 75
[2021-04-26] MEDS ORDERED: Sodium Chloride 0.9% 1,000 ML IV STA (11:41)
[2021-04-26] MEDS: Sodium Chloride 0.9% 10 ML Syringe FLUSH PRN ×2 (12:06→12:54)
[2021-04-26] MEDS ORDERED: Iopamidol 612 MG/ML 100 ML Bottle IVPUSH ONE (12:22)
[2021-04-26] MEDS ORDERED: Diatrizoate Meglumine/Diatrizoate Sodium 37% 120 ML Bottle PO ONE (12:22)
--- NOTE | 2021-04-26 12:29 | EDM.PDOC ---
ED HPI GENERAL MEDICAL PROBLEM - General Chief Complaint: Gastrointestinal Problem Stated Complaint: DIVERTICULITIS Time Seen by Provider: 04/26/21 11:24 Source of Information: Reports: Patient, RN Notes Reviewed History Limitations: Reports: No Limitations - History of Present Illness INITIAL COMMENTS - FREE TEXT/NARRATIVE: Patient is a 65-year-old male presenting to the emergency department with complaints of continued left lower quadrant abdominal pain and diarrhea after a diagnosis of diverticulitis 11 days ago. Patient reports that he was seen at the [facility] on April 15 for the symptoms. Work-up was done including blood work and a CT scan. He was diagnosed with diverticulitis and started on Levaquin and Flagyl for treatment of this. He has finished this course. States his symptoms did improve, however yesterday he had recurrence of the left lower quadrant abdominal pain and diarrhea. He has not had any fever or chills. Denies any nausea or vomiting. Abdomen Pain Score (Numeric/FACES): 4 - Related Data Allergies Allergy/AdvReac Type Severity Reaction Status Date / Time ciprofloxacin [From Cipro] Allergy Rash Verified 04/26/21 11:34 COVID-19 vaccine, mRNA, Allergy Airway Verified 04/26/21 11:34 [id number], L Tightness isopropyl alcohol Allergy Shortness Verified 04/26/21 11:34 of Breath latex Allergy Swelling Verified 04/26/21 11:34 loratadine [From Claritin] Allergy Cannot Verified 04/26/21 11:34 Remember orange Allergy Shortness Verified 04/26/21 11:34 of Breath Penicillins Allergy Shortness Verified 04/26/21 11:34 of Breath perfume Allergy Shortness Verified 04/26/21 11:34 of Breath pseudoephedrine Allergy Cannot Verified 04/26/21 11:34 [From Sudafed] Remember Home Meds: Home Meds Doxazosin [Cardura] 8 mg PO BEDTIME 07/05/17 [History] Esomeprazole Magnesium [Nexium 24Hr] 10 mg PO BEDTIME 07/05/17 [History] Fluticasone Propionate [Flovent] 1 puff IH DAILY 07/05/17 [History] Metoprolol Tartrate 12.5 mg PO BID 07/05/17 [History] Simvastatin [Zocor] 20 mg PO BEDTIME 07/05/17 [History] Ticagrelor [Brilinta] 90 mg PO BID 07/05/17 [History] Levalbuterol Tartrate [Xopenex Hfa] 2 puff INH Q6H PRN 07/19/17 [History] Losartan [Cozaar] 25 mg PO BEDTIME 08/01/17 [History] Montelukast Sodium [Singulair] 10 mg PO DAILY 10/30/19 [History] Nitroglycerin [Nitrostat] 0.4 mg SL ASDIRECTED PRN 10/30/19 [History] EPINEPHrine [Epipen 2-Vicente] 0.3 mg IJ ASDIRECTED #2 auto.injct 11/11/20 [Rx] Levofloxacin 500 mg PO DAILY 12/25/20 [History] metroNIDAZOLE [Metronidazole] 250 mg PO BID 12/25/20 [History] Past Medical History HEENT History: Reports: None Cardiovascular History: Reports: CAD, High Cholesterol, Hypertension, [place], Stents Respiratory History: Reports: Asthma Gastrointestinal History: Reports: Diverticulosis, GERD Genitourinary History: Reports: Prostate Disorder, Renal Calculus DATA TECHNICIAN History: Reports: None Musculoskeletal History: Reports: Other (See Below) Other Musculoskeletal History: LEFT KNEE PAIN Neurological History: Reports: None Psychiatric History: Reports: Panic Attack Endocrine/Metabolic History: Reports: None Immunologic History: Reports: None Oncologic (Cancer) History: Reports: None Dermatologic History: Reports: None - Infectious Disease History Infectious Disease History: Reports: Chicken Pox, Measles - Past Surgical History Head Surgeries/Procedures: Reports: None HEENT Surgical History: Reports: Naso-Sinus Surgery Other HEENT Surgeries/Procedures: septoplasty Cardiovascular Surgical History: Reports: None Respiratory Surgical History: Reports: None GI Surgical History: Reports: Appendectomy, Cholecystectomy Male Surgical History: Reports: Cystectomy, Lithotripsy ([facility]), Vasectomy, Other (See Below) Other Male Surgeries/Procedures: LEFT URETER STENT- HAS BEEN REMOVED Endocrine Surgical History: Reports: None Neurological Surgical History: Reports: None Musculoskeletal Surgical History: Reports: Other (See Below) Other Musculoskeletal Surgeries/Procedures:: LEFT HAND SURGERY Oncologic Surgical History: Reports: None Dermatological Surgical History: Reports: None Social & Family History - Family History Family Medical History: No Pertinent Family History - Tobacco Use Tobacco Use Status *Q: Never Tobacco User - Caffeine Use Caffeine Use: Reports: None - Recreational Drug Use Recreational Drug Use: No - Living Situation & Occupation Living situation: Reports: Occupation: Employed ED ROS GENERAL - Review of Systems Review Of Systems: See Below Constitutional: Reports: No Symptoms. Denies: Fever, Chills HEENT: Reports: No Symptoms Respiratory: Reports: No Symptoms Cardiovascular: Reports: No Symptoms Endocrine: Reports: No Symptoms GI/Abdominal: Reports: Abdominal Pain, Diarrhea. Denies: Nausea, Vomiting : Reports: No Symptoms Musculoskeletal: Reports: No Symptoms Skin: Reports: No Symptoms Neurological: Reports: No Symptoms Psychiatric: Reports: No Symptoms Hematologic/Lymphatic: Reports: No Symptoms Immunologic: Reports: No Symptoms ED EXAM, GI/ABD - Physical Exam Exam: See Below Exam Limited By: No Limitations General Appearance: Alert, WD/WN, No Apparent Distress Respiratory/Chest: No Respiratory Distress, Lungs Clear, Normal Breath Sounds, No Accessory Muscle Use, Chest Non-Tender Cardiovascular: Normal Peripheral Pulses, Regular Rate, Rhythm, No Edema, No Gallop, No JVD, No Murmur, No Rub GI/Abdominal Exam: Normal Bowel Sounds, Soft, No Organomegaly, No Distention, No Abnormal Bruit, No Mass, Pelvis Stable, Tender (Left lower quadrant) Neurological: Alert, Oriented, CN II-XII Intact, Normal Cognition, Normal Gait, Normal Reflexes, No Motor/Sensory Deficits Psychiatric: Normal Affect, Normal Mood Skin Exam: Warm, Dry, Intact, Normal Color, No Rash Course - Vital Signs Last Recorded V/S: Last Vital Signs Temp 97.6 F 04/26/21 11:27 Pulse 75 04/26/21 11:27 Resp 18 04/26/21 11:27 BP 145/70 H 04/26/21 11:27 Pulse Ox 97 04/26/21 11:27 - Orders/Labs/Meds Orders: Active Orders 24 hr Category Date Time Status Bladder Scan [RC] ASDIRECTED Care 04/26/21 13:29 Active Peripheral IV Care [RC] . DIRECTED Care 04/26/21 11:43 Active UA W/MICROSCOPIC [URIN] Stat Lab 04/26/21 14:23 Ordered Sodium Chloride 0.9% [Normal Saline] 1,000 ml Med 04/26/21 11:41 Active IV NOW Sodium Chloride 0.9% [Saline Flush] Med 04/26/21 11:41 Active 10 ml FLUSH ASDIRECTED PRN Peripheral IV Insertion Adult [OM.PC] Stat Oth 04/26/21 11:41 Ordered Medication Orders Sodium Chloride (Normal Saline) 1,000 mls @ 150 mls/hr IV NOW STA Stop: 04/26/21 18:20 Last Admin: 04/26/21 12:04 Dose: 150 mls/hr Documented by: FRANSISCA Sodium Chloride (Sodium Chloride 0.9% 10 Ml Syringe) 10 ml FLUSH ASDIRECTED PRN PRN Reason: Keep Vein Open Last Admin: 04/26/21 12:54 Dose: 10 ml Documented by: Admin: 04/26/21 12:06 Dose: 10 ml Documented by: FRANSISCA Labs: Laboratory Tests 04/26/21 04/26/21 Range/Units 11:40 11:40 WBC 7.72 (4.23-9.07) K/mm3 RBC 4.78 (4.63-6.08) M/mm3 Hgb 14.7 (13.7-17.5) gm/dl Hct 44.3 (40.1-51.0) % MCV 92.7 H (79.0-92.2) fl MCH 30.8 (25.7-32.2) pg MCHC 33.2 (32.2-35.5) g/dl RDW Std Deviation 46.6 H (35.1-43.9) fL Plt Count 279 (163-337) K/mm3 MPV 10.4 (9.4-12.3) fl Neut % (Auto) 69.2 H (34.0-67.9) % Lymph % (Auto) 20.5 L (21.8-53.1) % [place] % (Auto) 7.3 (5.3-12.2) % Eos % (Auto) 2.1 (0.8-7.0) Baso % (Auto) 0.3 (0.1-1.2) % Neut # (Auto) 5.35 (1.78-5.38) K/mm3 Lymph # (Auto) 1.58 (1.32-3.57) K/mm3 [place] # (Auto) 0.56 (0.30-0.82) K/mm3 Eos # (Auto) 0.16 (0.04-0.54) K/mm3 Baso # (Auto) 0.02 (0.01-0.08) K/mm3 Sodium 142 (136-145) mEq/L Potassium 3.9 (3.5-5.1) mEq/L Chloride 106 (98-107) mEq/L Carbon Dioxide 26 (21-32) mEq/L Anion Gap 13.9 (5-15) BUN 15 (7-18) mg/dL Creatinine 1.4 H (0.7-1.3) mg/dL Est Cr Clr Drug Dosing 54.53 mL/min Estimated GFR (MDRD) 51 (>60) mL/min BUN/Creatinine Ratio 10.7 L (14-18) Glucose 131 H (70-99) mg/dL Calcium 8.6 (8.5-10.1) mg/dL Total Bilirubin 0.3 (0.2-1.0) mg/dL AST 22 (15-37) U/L ALT 41 (16-63) U/L Alkaline Phosphatase 76 (46-116) U/L C-Reactive Protein <0.2 (<1.0) mg/dL Total Protein 7.0 (6.4-8.2) g/dl Albumin 3.2 L (3.4-5.0) g/dl Globulin 3.8 gm/dL Albumin/Globulin Ratio 0.8 L (1-2) Meds: Medications Generic Name Dose Route Start Last Admin Trade Name Freq PRN Reason Stop Dose Admin Sodium Chloride 1,000 mls @ 150 mls/hr 04/26/21 11:41 04/26/21 12:04 Normal Saline IV 04/26/21 18:20 150 mls/hr NOW STA Administration Sodium Chloride 10 ml 04/26/21 11:41 04/26/21 12:54 Sodium Chloride 0.9% 10 Ml Syringe FLUSH 10 ml ASDIRECTED PRN Administration Keep Vein Open Discontinued Medications Generic Name Dose Route Start Last Admin Trade Name Freq PRN Reason Stop Dose Admin Diatrizoate Meglum/Diatrizoate Sod 120 ml 04/26/21 12:22 04/26/21 12:53 Diatrizoate Meglumine/Diatrizoate Sodium 37% 120 Ml Bottle PO 04/26/21 12:23 30 ml ONETIME ONE Administration Iopamidol 100 ml 04/26/21 12:22 04/26/21 12:53 Iopamidol 612 Mg/Ml 100 Ml Bottle IVPUSH 04/26/21 12:23 100 ml ONETIME ONE Administration - Re-Assessments/Exams Free Text/Narrative Re-Assessment/Exam: Patient is a 65-year-old male presenting to the emergency department with complaints of left lower quadrant abdominal pain and diarrhea after completing t reatment for diverticulitis. On exam, patient does have left lower quadrant tenderness. Vital signs are stable. Has had no fever chills. I have ordered blood work and a CT scan of the abdomen pelvis. 04/26/21 13:31 Hematology is overall unremarkable. WBCs are normal. CRP is less than 0.02. CT scan of the abdomen pelvis shows: 1. Dilated bladder with the urine. Please correlate the patient has no bladder outlet obstruction. 2. Minimal inflammatory change in area of previous diverticulitis compatible with probable scarring. 3. Small fat-containing left inguinal hernia. 4. Multiple small cysts are believed to be present within the liver. I have ordered post void bladder scan to be completed. 04/26/21 14:33 Post void bladder scan showed 552 mils of urine in the bladder. This test was discussed with the patient. He reports that after passing a kidney stone, he had scar tissue in his urethra which caused problems for him voiding. He had it "cleaned out ". And has had no problems since that time. Discussed with him that I would recommend catheter insertion due to urinary retention, however he states that he has a "shy bladder "and that he will be able to void when he gets home. He does feel like he has to go. He continues to decline catheter insertion. Discussed that if he is not able to void when he gets home, he should return to ER. He verbalized understanding of this. Discharge instructions as documented. Departure - Departure Time of Disposition: 14:33 Disposition: Home, Self-Care 01 Condition: Good Clinical Impression: Abdominal pain, Diarrhea, Urinary retention - Discharge Information Instructions: Acute Urinary Retention, Male, Abdominal Pain, Adult, [id number], Diarrhea, Adult Referrals: Noe Cedillo MD [Primary Care Provider] - Forms: ED Department Discharge Additional Instructions: You were seen in the emergency department today for evaluation with regards to continued left lower quadrant abdominal pain and diarrhea after treatment for diverticulitis. Work-up included blood work, urinalysis, and a CT scan of the abdomen pelvis. Results of your work-up were found to be normal. Your white blood cells and inflammatory markers have returned to normal. Your CT scan shows some slight inflammation in the area of the diverticulitis which at this point is likely scarring from the infection. There is no evidence of ongoing infection. You did have urinary retention in the emergency department. After going to the bathroom, you still had 552 mils of urine in your bladder. Catheter was recommended, however you declined. If you find that you were unable to empty your bladder when you get home, you should return to the ER. If diarrhea and discomfort do not improve over the next few days, recommend follow- up in the clinic or return to ER as needed. Sepsis Event Note (ED) - Evaluation Sepsis Screening Result: No Definite Risk - Focused Exam Vital Signs: Vital Signs Temp Pulse Resp BP Pulse Ox 04/26/21 11:27 97.6 F 75 18 145/70 H 97 - My Orders Last 24 Hours: My Active Orders 04/26/21 11:41 Sodium Chloride 0.9% [Normal Saline] 1,000 ml IV NOW Sodium Chloride 0.9% [Saline Flush] 10 ml FLUSH ASDIRECTED PRN Peripheral IV Insertion Adult [OM.PC] Stat 04/26/21 11:43 Peripheral IV Care [RC] . DIRECTED 04/26/21 13:29 Bladder Scan [RC] ASDIRECTED 04/26/21 14:23 UA W/MICROSCOPIC [URIN] Stat - Assessment/Plan Last 24 Hours: My Active Orders 04/26/21 11:41 Sodium Chloride 0.9% [Normal Saline] 1,000 ml IV NOW Sodium Chloride 0.9% [Saline Flush] 10 ml FLUSH ASDIRECTED PRN Peripheral IV Insertion Adult [OM.PC] Stat 04/26/21 11:43 Peripheral IV Care [RC] . DIRECTED 04/26/21 13:29 Bladder Scan [RC] ASDIRECTED 04/26/21 14:23 UA W/MICROSCOPIC [URIN] Stat
--- NOTE | 2021-04-26 13:24 | CT ---
CT abdomen and pelvis Technique: Multiple axial sections were obtained from above the dome of the diaphragm inferiorly through the pubic symphysis. Intravenous and oral contrast were utilized. Delayed images were obtained through the pelvis. Reconstructed coronal and sagittal images were also obtained. Comparison: Prior CT abdomen and pelvis study of 12/25/20. Findings: Visualized lung bases show slight atelectasis. Liver contains multiple small low density findings measuring less than 5 mm. These are most likely due to multiple small cysts. These findings are felt to be seen on prior study but are better identified currently due to differences in technique. Spleen appears within normal limits. Adrenal glands show no nodule. Pancreas shows no abnormality. Surgical clips are seen from prior cholecystectomy. Kidneys show symmetric contrast enhancement. Minimal cortical cyst is noted within the right kidney. Ureters show no abnormal calcifications. Abdominal aorta shows atherosclerotic change with no aneurysm. No retroperitoneal adenopathy or mesenteric abnormalities are seen. Appendix is not visualized. Diverticuli are seen within the sigmoid colon. There is a very minimal density in the area of previous diverticulitis most likely due to scarring. No acute inflammatory type change is appreciated. Bladder is somewhat dilated with urine. Delayed images show contrast within the distal ureters and within the bladder. Small fat-containing inguinal hernia is noted. Bone window settings were reviewed which show mild scattered degenerative change throughout the spine. No acute osseous abnormality is appreciated. Impression: 1. Dilated bladder with urine. Please correlate that patient has no bladder outlet obstruction. 2. Minimal inflammatory change in area of previous diverticulitis compatible with probable scarring. 3. Small fat-containing left inguinal hernia. 4. Multiple small cysts are believed to be present within the liver. Diagnostic code #3
== END 2021-04-26 14:46 | disposition home or self-care (01) ==
LOC: JD.ED 11:14
DX: R10.32 Left lower quadrant pain (principal); R33.9 Retention of urine, unspecified; R19.7 Diarrhea, unspecified; I25.10 Atherosclerotic heart disease of native coronary artery without angina pectoris; E78.00 Pure hypercholesterolemia, unspecified; I10 Essential (primary) hypertension; I25.2 Old myocardial infarction; Z95.5 Presence of coronary angioplasty implant and graft; Z88.1 Allergy status to other antibiotic agents; Z88.7 Allergy status to serum and vaccine; Z91.040 Latex allergy status; Z88.8 Allergy status to other drugs, medicaments and biological substances; Z88.0 Allergy status to penicillin; Z91.018 Allergy to other foods; Z91.048 Other nonmedicinal substance allergy status
CPT/HCPCS: 36415; 74177; 80053; 81001; 85025; 86140; 99284; J7030; Q9963; Q9967

== ENCOUNTER 2021-09-05 09:44 | Emergency (ER) | payer MEDICARE, BC ==
[2021-09-05 09:54] VITALS: BP 127/71; PULSE 69
[2021-09-05] MEDS ORDERED: Aspirin 81 MG Tab.Chew PO ONE (09:57)
[2021-09-05] MEDS ORDERED: Ondansetron 4 MG/2 ML SDV IVPUSH ONE (09:57)
[2021-09-05] MEDS ORDERED: Sodium Chloride 0.9% 10 ML Syringe FLUSH PRN (09:57)
[2021-09-05] MEDS ORDERED: Sodium Chloride 0.9% 1,000 ML IV SCH (10:00)
--- NOTE | 2021-09-05 10:27 | EDM.PDOC ---
ED HPI GENERAL MEDICAL PROBLEM - General Chief Complaint: Chest Pain Stated Complaint: CHEST PAIN\VOMITING Time Seen by Provider: 09/05/21 09:49 Source of Information: Reports: Patient, Family History Limitations: Reports: No Limitations - History of Present Illness INITIAL COMMENTS - FREE TEXT/NARRATIVE: The patient presents with his for chest pain, nausea, vomiting, diarrhea and cough. This started this morning at 7am. He has no shortness of breath. He has a history of an WI with stents. He has no fever, chills, abdominal pain or dysuria. He said yesterday he had some diarrhea. He has not been around anyone that is sick. He has not eaten any bad food. He feels a little better now. Onset: Gradual Duration: Hour(s): Location: Reports: Chest Quality: Reports: Sharp Severity: Mild Improves with: Reports: None Worsens with: Reports: None Associated Symptoms: Reports: Chest Pain, Cough, Nausea/Vomiting. Denies: Fever/Chills, Headaches, Shortness of Breath Chest Pain Score (Numeric/FACES): 4 - Related Data Allergies Allergy/AdvReac Type Severity Reaction Status Date / Time ciprofloxacin [From Cipro] Allergy Rash Verified 04/26/21 11:34 COVID-19 vaccine, mRNA, Allergy Airway Verified 04/26/21 11:34 [id number], L Tightness isopropyl alcohol Allergy Shortness Verified 04/26/21 11:34 of Breath latex Allergy Swelling Verified 04/26/21 11:34 loratadine [From Claritin] Allergy Cannot Verified 04/26/21 11:34 Remember orange Allergy Shortness Verified 04/26/21 11:34 of Breath Penicillins Allergy Shortness Verified 04/26/21 11:34 of Breath perfume Allergy Shortness Verified 04/26/21 11:34 of Breath pseudoephedrine Allergy Cannot Verified 04/26/21 11:34 [From Sudafed] Remember Home Meds: Home Meds Doxazosin [Cardura] 8 mg PO BEDTIME 07/05/17 [History] Esomeprazole Magnesium [Nexium 24Hr] 10 mg PO BEDTIME 07/05/17 [History] Fluticasone Propionate [Flovent] 1 puff IH DAILY 07/05/17 [History] Metoprolol Tartrate 12.5 mg PO BID 07/05/17 [History] Simvastatin [Zocor] 20 mg PO BEDTIME 07/05/17 [History] Ticagrelor [Brilinta] 90 mg PO BID 07/05/17 [History] Levalbuterol Tartrate [Xopenex Hfa] 2 puff INH Q6H PRN 07/19/17 [History] Losartan [Cozaar] 25 mg PO BEDTIME 08/01/17 [History] Montelukast Sodium [Singulair] 10 mg PO DAILY 10/30/19 [History] Nitroglycerin [Nitrostat] 0.4 mg SL ASDIRECTED PRN 10/30/19 [History] EPINEPHrine [Epipen 2-Vicente] 0.3 mg IJ ASDIRECTED #2 auto.injct 11/11/20 [Rx] Levofloxacin 500 mg PO DAILY 12/25/20 [History] metroNIDAZOLE [Metronidazole] 250 mg PO BID 12/25/20 [History] Past Medical History HEENT History: Reports: None Cardiovascular History: Reports: CAD, High Cholesterol, Hypertension, WI, Stents Respiratory History: Reports: Asthma Gastrointestinal History: Reports: Diverticulosis, GERD Genitourinary History: Reports: Prostate Disorder, Renal Calculus 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 Musculoskeletal History: Reports: Other (See Below) Other Musculoskeletal History: LEFT KNEE PAIN Neurological History: Reports: None Psychiatric History: Reports: Panic Attack Endocrine/Metabolic History: Reports: None Immunologic History: Reports: None Oncologic (Cancer) History: Reports: None Dermatologic History: Reports: None - Infectious Disease History Infectious Disease History: Reports: Chicken Pox, Measles - Past Surgical History HEENT Surgical History: Reports: Naso-Sinus Surgery Other HEENT Surgeries/Procedures: septoplasty GI Surgical History: Reports: Appendectomy, Cholecystectomy Male Surgical History: Reports: Cystectomy, Lithotripsy ([facility]), Vasectomy, Other (See Below) Musculoskeletal Surgical History: Reports: Other (See Below) Other Musculoskeletal Surgeries/Procedures:: LEFT HAND SURGERY Social & Family History - Family History Family Medical History: No Pertinent Family History - Caffeine Use Caffeine Use: Reports: None - Recreational Drug Use Recreational Drug Use: No - Living Situation & Occupation Living situation: Reports: Occupation: Employed ED ROS GENERAL - Review of Systems Review Of Systems: See Below Constitutional: Reports: No Symptoms HEENT: Reports: No Symptoms Respiratory: Reports: Cough. Denies: Shortness of Breath Cardiovascular: Reports: Chest Pain Endocrine: Reports: No Symptoms GI/Abdominal: Reports: Diarrhea, Nausea, Vomiting. Denies: Abdominal Pain : Reports: No Symptoms Musculoskeletal: Reports: No Symptoms ED EXAM, GENERAL - Physical Exam Exam: See Below Exam Limited By: No Limitations General Appearance: Alert, No Apparent Distress Ears: Normal External Exam Nose: Normal Inspection Head: Atraumatic, Normocephalic Neck: Normal Inspection Respiratory/Chest: No Respiratory Distress, Lungs Clear, Normal Breath Sounds Cardiovascular: Regular Rate, Rhythm, No Edema, No Murmur GI/Abdominal: Soft, Non-Tender, No Organomegaly, No Mass Back Exam: Normal Inspection Extremities: Normal Inspection #1 Interpretation EKG Date: 09/05/21 Time: 09:50 Rhythm: NSR Rate (Beats/Min): 73 [place]: Normal P-Wave: Present QRS: Normal ST-T: Normal QT: Normal Course - Vital Signs Last Recorded V/S: Last Vital Signs Temp 96.9 F 09/05/21 09:51 Pulse 69 09/05/21 09:51 Resp 14 09/05/21 09:51 BP 127/71 09/05/21 09:51 Pulse Ox 97 09/05/21 09:51 - Orders/Labs/Meds Orders: Active Orders 24 hr Category Date Time Status Cardiac Monitoring [RC] . DIRECTED Care 09/05/21 09:57 Active Peripheral IV Care [RC] . DIRECTED Care 09/05/21 09:58 Active TROPONIN I [CHEM] Stat Lab 09/05/21 11:55 Ordered Sodium Chloride 0.9% [Normal Saline] 1,000 ml Med 09/05/21 10:00 Active IV .BOLUS Sodium Chloride 0.9% [Saline Flush] Med 09/05/21 09:57 Active 10 ml FLUSH ASDIRECTED PRN ED Antiemetic Medication Reflex [OM.PC] Stat Oth 09/05/21 09:57 Ordered Peripheral IV Insertion Adult [OM.PC] Stat Oth 09/05/21 09:57 Ordered Medication Orders Sodium Chloride (Normal Saline) 1,000 mls @ 1,000 mls/hr IV .BOLUS AMBROSIO Last Admin: 09/05/21 10:20 Dose: 1,000 mls/hr Documented by: ELVIE Sodium Chloride (Sodium Chloride 0.9% 10 Ml Syringe) 10 ml FLUSH ASDIRECTED PRN PRN Reason: Keep Vein Open Last Admin: 09/05/21 10:23 Dose: 10 ml Documented by: ELVIE Labs: Laboratory Tests 09/05/21 09/05/21 09/05/21 Range/Units 09:55 09:55 10:27 WBC 8.11 (4.23-9.07) K/mm3 RBC 5.35 (4.63-6.08) M/mm3 Hgb 16.3 D (13.7-17.5) gm/dl Hct 49.7 (40.1-51.0) % MCV 92.9 H (79.0-92.2) fl MCH 30.5 (25.7-32.2) pg MCHC 32.8 (32.2-35.5) g/dl RDW Std Deviation 44.6 H (35.1-43.9) fL Plt Count 263 (163-337) K/mm3 MPV 10.5 (9.4-12.3) fl Neut % (Auto) 64.9 (34.0-67.9) % Lymph % (Auto) 23.1 (21.8-53.1) % [place] % (Auto) 10.2 (5.3-12.2) % Eos % (Auto) 1.2 (0.8-7.0) Baso % (Auto) 0.2 (0.1-1.2) % Neut # (Auto) 5.26 (1.78-5.38) K/mm3 Lymph # (Auto) 1.87 (1.32-3.57) K/mm3 [place] # (Auto) 0.83 H (0.30-0.82) K/mm3 Eos # (Auto) 0.10 (0.04-0.54) K/mm3 Baso # (Auto) 0.02 (0.01-0.08) K/mm3 Sodium 141 (136-145) mEq/L Potassium 4.1 (3.5-5.1) mEq/L Chloride 104 (98-107) mEq/L Carbon Dioxide 30 (21-32) mEq/L Anion Gap 11.1 (5-15) BUN 20 H (7-18) mg/dL Creatinine 1.4 H (0.7-1.3) mg/dL Est Cr Clr Drug Dosing 53.79 mL/min Estimated GFR (MDRD) 50 (>60) mL/min BUN/Creatinine Ratio 14.3 (14-18) Glucose 87 (70-99) mg/dL Calcium 8.9 (8.5-10.1) mg/dL Total Bilirubin 0.6 (0.2-1.0) mg/dL AST 21 (15-37) U/L ALT 43 (16-63) U/L Alkaline Phosphatase 83 (46-116) U/L Troponin I < 0.017 (0.00-0.056) ng/mL C-Reactive Protein <0.2 (<1.0) mg/dL Total Protein 8.1 (6.4-8.2) g/dl Albumin 3.8 (3.4-5.0) g/dl Globulin 4.3 gm/dL Albumin/Globulin Ratio 0.9 L (1-2) SARS-CoV-2 RNA (CHEIKH) Negative (NEGATIVE) Meds: Medications Generic Name Dose Route Start Last Admin Trade Name Darian PRN Reason Stop Dose Admin Sodium Chloride 1,000 mls @ 1,000 mls/hr 09/05/21 10:00 09/05/21 10:20 Normal Saline IV 1,000 mls/hr .BOLUS AMBROSIO Administration Sodium Chloride 10 ml 09/05/21 09:57 09/05/21 10:23 Sodium Chloride 0.9% 10 Ml Syringe FLUSH 10 ml ASDIRECTED PRN Administration Keep Vein Open Discontinued Medications Generic Name Dose Route Start Last Admin Trade Name Darian PRN Reason Stop Dose Admin Aspirin 324 mg 09/05/21 09:57 09/05/21 10:20 Aspirin 81 Mg Tab.Chew PO 09/05/21 09:58 324 mg ONETIME ONE Administration Ondansetron HCl 4 mg 09/05/21 09:57 09/05/21 10:21 Ondansetron 4 Mg/2 Ml Sdv IVPUSH 09/05/21 09:58 4 mg ONETIME ONE Administration - Re-Assessments/Exams Free Text/Narrative Re-Assessment/Exam: 09/05/21 10:55 I ordered an IV NS 1L bolus, zofran 4mg IV, aspirin, labs, CXR and COVID. His EKG shows a NSR with no acute changes. His CXR looks good. 09/05/21 11:44 His CBC looks good. His creatinine was elevated at 1.4. His troponin is negative. His CRP is negative. His COVID is negative. 09/05/21 11:56 He feels better. I do not think this is cardiac. I will do a repeat troponin. I will discharge him home after that. Departure - Departure Time of Disposition: 12:15 Disposition: Home, Self-Care 01 Condition: Good Clinical Impression: Atypical chest pain, Viral gastroenteritis Referrals: Noe Cedillo MD [Primary Care Provider] - 1 Week Forms: ED Department Discharge Additional Instructions: Drink plenty of fluids. Take tylenol or motrin as needed for pain. Keep taking your medications as prescribed. Please return if you are worse. Sepsis Event Note (ED) - Evaluation Sepsis Screening Result: No Definite Risk - Focused Exam Vital Signs: Vital Signs Temp Pulse Resp BP Pulse Ox 09/05/21 09:51 96.9 F 69 14 127/71 97 - My Orders Last 24 Hours: My Active Orders 09/05/21 09:57 Cardiac Monitoring [RC] . DIRECTED Sodium Chloride 0.9% [Saline Flush] 10 ml FLUSH ASDIRECTED PRN ED Antiemetic Medication Reflex [OM.PC] Stat Peripheral IV Insertion Adult [OM.PC] Stat 09/05/21 09:58 Peripheral IV Care [RC] . DIRECTED 09/05/21 10:00 Sodium Chloride 0.9% [Normal Saline] 1,000 ml IV .BOLUS 09/05/21 11:55 TROPONIN I [CHEM] Stat - Assessment/Plan Last 24 Hours: My Active Orders 09/05/21 09:57 Cardiac Monitoring [RC] . DIRECTED Sodium Chloride 0.9% [Saline Flush] 10 ml FLUSH ASDIRECTED PRN ED Antiemetic Medication Reflex [OM.PC] Stat Peripheral IV Insertion Adult [OM.PC] Stat 09/05/21 09:58 Peripheral IV Care [RC] . DIRECTED 09/05/21 10:00 Sodium Chloride 0.9% [Normal Saline] 1,000 ml IV .BOLUS 09/05/21 11:55 TROPONIN I [CHEM] Stat
--- NOTE | 2021-09-05 10:40 | CR ---
Chest: Frontal view of the chest was obtained. Comparison: Prior chest x-ray of 03/17/19. Heart size and mediastinum are within normal limits. Lungs are clear with no acute parenchymal change. Bony structures show no discrete osseous abnormality. Impression: 1. Nothing acute is seen on frontal chest x-ray. Diagnostic code #1
== END 2021-09-05 12:40 | disposition home or self-care (01) ==
LOC: JD.ED 09:44
DX: R07.89 Other chest pain (principal); A08.4 Viral intestinal infection, unspecified; I25.10 Atherosclerotic heart disease of native coronary artery without angina pectoris; E78.00 Pure hypercholesterolemia, unspecified; I10 Essential (primary) hypertension; I25.2 Old myocardial infarction; J45.909 Unspecified asthma, uncomplicated; K21.9 Gastro-esophageal reflux disease without esophagitis; Z95.5 Presence of coronary angioplasty implant and graft; Z88.1 Allergy status to other antibiotic agents; Z88.7 Allergy status to serum and vaccine; Z88.8 Allergy status to other drugs, medicaments and biological substances; Z91.040 Latex allergy status; Z91.018 Allergy to other foods; Z88.0 Allergy status to penicillin; Z91.048 Other nonmedicinal substance allergy status; Z79.899 Other long term (current) drug therapy; Z20.822 Contact with and (suspected) exposure to COVID-19
CPT/HCPCS: 36415; 71045; 80053; 84484; 85025; 86140; 93005; 96374; 99285; A9270; J2405; J7030; U0002

== ENCOUNTER 2022-01-03 13:41 | Emergency (ER) | payer MEDICARE, BC ==
[2022-01-03] MEDS ORDERED: Sodium Chloride 0.9% 10 ML Syringe FLUSH PRN (14:19)
[2022-01-03 17:04] VITALS: BP 132/56; PULSE 66
== END 2022-01-03 17:04 | disposition home or self-care (01) ==
LOC: JD.ED 13:41
DX: R07.89 Other chest pain (principal); K21.9 Gastro-esophageal reflux disease without esophagitis; I25.10 Atherosclerotic heart disease of native coronary artery without angina pectoris; E78.00 Pure hypercholesterolemia, unspecified; I10 Essential (primary) hypertension; I25.2 Old myocardial infarction; Z95.5 Presence of coronary angioplasty implant and graft; Z88.1 Allergy status to other antibiotic agents; Z88.7 Allergy status to serum and vaccine; Z91.040 Latex allergy status; Z88.5 Allergy status to narcotic agent; Z91.018 Allergy to other foods; Z91.048 Other nonmedicinal substance allergy status; Z88.0 Allergy status to penicillin; Z88.8 Allergy status to other drugs, medicaments and biological substances; Z79.899 Other long term (current) drug therapy
CPT/HCPCS: 36415; 71045; 71045-26; 80053; 84484; 85025; 93005; 99285-25

== ENCOUNTER 2022-06-19 12:18 | Emergency (ER) | payer MEDICARE, BC ==
[2022-06-19 12:51] VITALS: BP 136/91; PULSE 71
[2022-06-19 13:42] LABS: CORONAVIRUS COVID-19 NAA NEGATIVE (NEGATIVE)
[2022-06-19 13:53] LABS: ESTIMATED GFR 65 mL/min (>60)
[2022-06-19] MEDS ORDERED: Ondansetron 4 MG Tab.DIS PO ONE (13:57)
[2022-06-19] MEDS ORDERED: Aluminum Hydroxide/Magnesium Hydroxide/Simethicone Susp 30 ML Cup PO ONE (13:57)
[2022-06-19] MEDS ORDERED: Sucralfate 1 GM Tab PO ONE (13:59)
== END 2022-06-19 14:50 | disposition home or self-care (01) ==
LOC: JD.ED 12:18
DX: K21.9 Gastro-esophageal reflux disease without esophagitis (principal); E78.00 Pure hypercholesterolemia, unspecified; I10 Essential (primary) hypertension; Z79.899 Other long term (current) drug therapy; Z88.0 Allergy status to penicillin; Z88.8 Allergy status to other drugs, medicaments and biological substances; Z20.822 Contact with and (suspected) exposure to COVID-19
CPT/HCPCS: 0241U; 36415; 80053; 84484; 85025; 86140; 93005; 99284; A9270; 93010

== ENCOUNTER 2023-09-01 10:57 | Emergency (ER) | payer MEDICARE, BC ==
[2023-09-01] MEDS ORDERED: LORazepam 2 MG/ML SDV ONE (11:24)
[2023-09-01] MEDS ORDERED: Sodium Chloride 0.9% 10 ML Syringe FLUSH PRN (11:26)
[2023-09-01] MEDS ORDERED: LORazepam 2 MG/ML SDV IVPUSH ONE (11:26)
[2023-09-01 11:34] LABS: BASOPHILS PERCENT AUTO 0.4 % (0.0-1.0); EOSINOPHILS ABSOLUTE AUTO 0.3 K/mm3 (0.0-0.4); EOSINOPHILS PERCENT AUTO 3.9 % (0.0-6.0); HEMATOCRIT 44.2 % (42.0-52.0); HEMOGLOBIN 14.9 gm/dl (14.0-18.0); IMMATURE GRAN ABSOLUTE AUTO 0.03 K/mm3 (0.00-0.05); IMMATURE GRAN PERCENT AUTO 0.4 % (0.0-0.4); LYMPHOCYTES ABSOLUTE AUTO 1.1 K/mm3 (1.0-4.8); LYMPHOCYTES PERCENT AUTO 16.4 % (24.0-44.0); MEAN CORPUSCULAR HEMOGLOBIN 30.9 pg (28.0-32.0); MEAN CORPUSCULAR HGB CONC 33.7 g/dl (32.0-36.0); MEAN CORPUSCULAR VOLUME 91.7 fl (83.0-99.0); MEAN PLATELET VOLUME 9.9 fl (9.4-12.4); MONOCYTES ABSOLUTE AUTO 0.7 K/mm3 (0.0-0.8); MONOCYTES PERCENT AUTO 10.2 % (0.0-8.0); NEUTROPHILS ABSOLUTE AUTO 4.8 K/mm3 (1.8-7.7); NEUTROPHILS PERCENT AUTO 68.7 % (41.0-71.0); PLATELET COUNT,PLT 278 K/mm3 (150-400); RED BLOOD CELL COUNT 4.82 M/mm3 (4.52-5.90); WHITE BLOOD CELL COUNT,WBC 6.95 K/mm3 (3.9-11.3)
[2023-09-01 11:57] LABS: A/G RATIO 0.7 (1-2); ALBUMIN 3.3 g/dl (3.4-5.0); BILIRUBIN TOTAL 0.7 mg/dL (0.2-1.0); C-REACTIVE PROTEIN 0.2 mg/dL (<1.0); CALCIUM 8.9 mg/dL (8.5-10.1); CREATININE 1.2 mg/dL (0.7-1.3); EST CRCL DRUG DOSING (CG) 61.01 mL/min; PROTEIN TOTAL,TP 7.8 g/dl (6.4-8.2)
[2023-09-01 12:28] LABS: INFLUENZA A NAA NEGATIVE (NEGATIVE)
[2023-09-01 12:57] LABS: CORONAVIRUS COVID-19 NAA POSITIVE (NEGATIVE)
[2023-09-01 13:14] VITALS: BP 117/97; PULSE 74
== END 2023-09-01 12:45 | disposition home or self-care (01) ==
LOC: JD.ED 10:57
DX: U07.1 COVID-19 (principal); J01.90 Acute sinusitis, unspecified; I10 Essential (primary) hypertension; I25.10 Atherosclerotic heart disease of native coronary artery without angina pectoris; I25.2 Old myocardial infarction; E78.00 Pure hypercholesterolemia, unspecified; Z88.0 Allergy status to penicillin; Z88.7 Allergy status to serum and vaccine; Z91.040 Latex allergy status; Z88.8 Allergy status to other drugs, medicaments and biological substances; Z91.048 Other nonmedicinal substance allergy status; Z79.899 Other long term (current) drug therapy; Z90.49 Acquired absence of other specified parts of digestive tract; Z87.891 Personal history of nicotine dependence; Z20.822 Contact with and (suspected) exposure to COVID-19
CPT/HCPCS: 0240U; 36415; 71046; 71046-26; 80053; 84484; 85025; 85379; 86140; 93005; 93010; 96374; 99284; 99285-25; J2060

== ENCOUNTER 2024-07-05 18:49 | Emergency (ER) | payer MEDICARE, BC ==
[2024-07-05 19:29] VITALS: BP 132/75; PULSE 77
[2024-07-05 19:48] LABS: BASOPHILS PERCENT AUTO 0.2 % (0.0-1.0); EOSINOPHILS PERCENT AUTO 0.1 % (0.0-6.0); IMMATURE GRAN ABSOLUTE AUTO 0.06 K/mm3 (0.00-0.05); IMMATURE GRAN PERCENT AUTO 0.4 % (0.0-0.4); LYMPHOCYTES ABSOLUTE AUTO 1.5 K/mm3 (1.0-4.8); LYMPHOCYTES PERCENT AUTO 10.6 % (24.0-44.0); MEAN CORPUSCULAR HEMOGLOBIN 30.7 pg (28.0-32.0); MEAN CORPUSCULAR HGB CONC 33.3 g/dl (32.0-36.0); MEAN CORPUSCULAR VOLUME 92.2 fl (83.0-99.0); MEAN PLATELET VOLUME 10.1 fl (9.4-12.4); MONOCYTES ABSOLUTE AUTO 1.4 K/mm3 (0.0-0.8); MONOCYTES PERCENT AUTO 10.2 % (0.0-8.0); NEUTROPHILS ABSOLUTE AUTO 10.8 K/mm3 (1.8-7.7); NEUTROPHILS PERCENT AUTO 78.5 % (41.0-71.0); PLATELET COUNT,PLT 295 K/mm3 (150-400); RED BLOOD CELL COUNT 4.88 M/mm3 (4.52-5.90); WHITE BLOOD CELL COUNT,WBC 13.76 K/mm3 (3.9-11.3)
[2024-07-05 20:00] LABS: A/G RATIO 0.6 (1-2); ALBUMIN 3.1 g/dl (3.4-5.0); ANION GAP 13.2 (5-15); BILIRUBIN TOTAL 1.3 mg/dL (0.2-1.0); BUN/CREATININE RATIO 15.4 (14-18); C-REACTIVE PROTEIN 14.31 mg/dL (<0.30); CALCIUM 9.2 mg/dL (8.5-10.1); CREATININE 1.3 mg/dL (0.7-1.3); EST CRCL DRUG DOSING (CG) 53.81 mL/min; POTASSIUM,K 4.2 mEq/L (3.5-5.1); PROTEIN TOTAL,TP 8.1 g/dl (6.4-8.2)
[2024-07-05] MEDS: Sodium Chloride 0.9% 1,000 ML IV ONE (20:26)
[2024-07-05] MEDS: Iopamidol 612 MG/ML 100 ML Bottle IVPUSH ONE (20:55)
[2024-07-05] MEDS: Alum Hydrox/Mag Hydrox/Simeth 30 ML, Lidocaine 2% 15 ML PO ONE (22:23)
[2024-07-05] MEDS: Levofloxacin 500 MG Tab PO ONE (23:04)
[2024-07-05] MEDS: metroNIDAZOLE 500 MG Tab PO ONE (23:04)
== END 2024-07-06 00:15 | disposition home or self-care (01) ==
LOC: JD.ED 18:49
DX: R10.13 Epigastric pain (principal); I10 Essential (primary) hypertension; I25.10 Atherosclerotic heart disease of native coronary artery without angina pectoris; I25.2 Old myocardial infarction; E78.00 Pure hypercholesterolemia, unspecified; K21.9 Gastro-esophageal reflux disease without esophagitis; Z90.49 Acquired absence of other specified parts of digestive tract; Z95.5 Presence of coronary angioplasty implant and graft; Z79.899 Other long term (current) drug therapy; Z79.51 Long term (current) use of inhaled steroids; Z88.0 Allergy status to penicillin; Z88.8 Allergy status to other drugs, medicaments and biological substances; Z91.018 Allergy to other foods; Z91.09 Other allergy status, other than to drugs and biological substances; Z91.040 Latex allergy status; Z88.1 Allergy status to other antibiotic agents; Z88.7 Allergy status to serum and vaccine
CPT/HCPCS: 36415; 74177; 80053; 83690; 85025; 86140; 96360; 99284; A9270; J7030; Q9967

== ENCOUNTER 2024-10-17 08:43 | Day surgery (SDC) | payer MEDICARE, BC ==
[~2024-10-17 08:43] MED LIST changes: -EPINEPHrine 1 MG/1 ML Amp SCH; -Lactated Ringers 1,000 ML IV SCH; -Lidocaine 1%/Sod Bicarbonate in NS 8.4% 1 ML Syringe IDERM PRN; +Sodium Chloride 0.9% 10 ML Syringe FLUSH SCH
[2024-10-17] MEDS: Lactated Ringers 1,000 ML IV SCH (09:40)
[2024-10-17] MEDS ORDERED: fentaNYL 250 MCG/5 ML SDV ONE (09:55)
[2024-10-17] MEDS ORDERED: Propofol 200 MG/20 ML SDV ONE (09:55)
[2024-10-17] MEDS ORDERED: Rocuronium 50 MG/5 ML Vial ONE ×2 (09:56→11:33)
[2024-10-17] MEDS ORDERED: dexmedeTOMIDine HCl 200 MCG/2 ML SDV ONE (09:56)
[2024-10-17] MEDS ORDERED: Lidocaine 1% 5 ML VIAL ONE (09:56)
[2024-10-17] MEDS ORDERED: Ondansetron 4 MG/2 ML SDV ONE (09:56)
[2024-10-17] MEDS ORDERED: Dexamethasone 4 MG/ML 5 ML MDV ONE (09:56)
[2024-10-17] MEDS ORDERED: ceFAZolin 2 GM Vial ONE (10:59)
[2024-10-17] MEDS ORDERED: ePHEDrine 50 MG/ML SDV ONE (11:00)
[2024-10-17] MEDS ORDERED: Lactated Ringers 1,000 ML IV ONE (11:15)
[2024-10-17] MEDS ORDERED: HYDROmorphone 0.5 MG/0.5 ML Syringe ONE ×3 (11:20→12:08)
[2024-10-17] MEDS: EPINEPHrine 1 MG/ML SDV ONE (11:22)
[2024-10-17] MEDS: Bupivacaine 0.5% 30 ML SDV ONE (11:22)
[2024-10-17] MEDS ORDERED: Ketorolac 30 MG/ML SDV ONE (12:26)
[2024-10-17] MEDS ORDERED: Sugammadex Sodium 200 MG/2 ML VIAL IV ONE (12:26)
[2024-10-17] MEDS ORDERED: HYDROmorphone 0.5 MG/0.5 ML Syringe IVPUSH PRN (13:29)
[2024-10-17] MEDS ORDERED: Ondansetron 4 MG/2 ML SDV IVPUSH PRN (13:29)
[2024-10-17] MEDS: fentaNYL 100 MCG/2 ML SDV IVPUSH PRN (13:40)
[2024-10-17] MEDS ORDERED: LORazepam 2 MG/ML SDV IVPUSH PRN (13:45)
[2024-10-17] MEDS: oxyCODONE 5 MG Tab PO PRN (14:33)
[2024-10-17 16:30] VITALS: BP 101/89; PULSE 82
== END 2024-10-17 16:20 | disposition home or self-care (01) ==
LOC: JD.SDS 08:43
PROVIDERS: ATTEND Surgery
DX: K43.9 Ventral hernia without obstruction or gangrene (principal); K40.90 Unilateral inguinal hernia, without obstruction or gangrene, not specified as recurrent; D17.6 Benign lipomatous neoplasm of spermatic cord; K57.32 Diverticulitis of large intestine without perforation or abscess without bleeding; I10 Essential (primary) hypertension; I25.10 Atherosclerotic heart disease of native coronary artery without angina pectoris; E78.00 Pure hypercholesterolemia, unspecified; K21.9 Gastro-esophageal reflux disease without esophagitis; J45.909 Unspecified asthma, uncomplicated; Z79.899 Other long term (current) drug therapy; Z88.0 Allergy status to penicillin; Z88.8 Allergy status to other drugs, medicaments and biological substances; Z91.018 Allergy to other foods; Z91.040 Latex allergy status
CPT/HCPCS: 49593; 49650; A9270; J0171; J0665; J0690; J1100; J1885; J2405; J2704; J3010; J7120; J3490

== ENCOUNTER 2025-02-08 15:49 | Inpatient (IN) | payer MEDICARE, BC ==
[2025-02-08 16:35] LABS: BASOPHILS PERCENT AUTO 0.2 % (0.0-1.0); EOSINOPHILS PERCENT AUTO 0.1 % (0.0-6.0); HEMATOCRIT 48.5 % (42.0-52.0); HEMOGLOBIN 16.2 gm/dl (14.0-18.0); IMMATURE GRAN ABSOLUTE AUTO 0.06 K/mm3 (0.00-0.05); IMMATURE GRAN PERCENT AUTO 0.5 % (0.0-0.4); LYMPHOCYTES ABSOLUTE AUTO 1.2 K/mm3 (1.0-4.8); LYMPHOCYTES PERCENT AUTO 8.8 % (24.0-44.0); MEAN CORPUSCULAR HEMOGLOBIN 30.9 pg (28.0-32.0); MEAN CORPUSCULAR HGB CONC 33.4 g/dl (32.0-36.0); MEAN CORPUSCULAR VOLUME 92.6 fl (83.0-99.0); MONOCYTES ABSOLUTE AUTO 1.2 K/mm3 (0.0-0.8); NEUTROPHILS ABSOLUTE AUTO 10.8 K/mm3 (1.8-7.7); NEUTROPHILS PERCENT AUTO 81.4 % (41.0-71.0); PLATELET COUNT,PLT 239 K/mm3 (150-400); RED BLOOD CELL COUNT 5.24 M/mm3 (4.52-5.90); WHITE BLOOD CELL COUNT,WBC 13.27 K/mm3 (3.9-11.3)
[2025-02-08] MEDS: Ondansetron 4 MG/2 ML SDV IVPUSH ONE (16:35)
[2025-02-08] MEDS: HYDROmorphone 0.5 MG/0.5 ML Syringe IVPUSH ONE (16:38)
[2025-02-08] MEDS: Sodium Chloride 0.9% 10 ML Syringe FLUSH PRN (16:40)
[2025-02-08] MEDS: Sodium Chloride 0.9% 1,000 ML IV STA (16:41)
[2025-02-08 16:57] LABS: A/G RATIO 0.7 (1-2); ALBUMIN 3.2 g/dl (3.4-5.0); ANION GAP 16.3 (5-15); BILIRUBIN TOTAL 1.6 mg/dL (0.2-1.0); BUN/CREATININE RATIO 11.9 (14-18); C-REACTIVE PROTEIN 19.46 mg/dL (<0.30); CREATININE 1.6 mg/dL (0.7-1.3); EST CRCL DRUG DOSING (CG) 45.1 mL/min; POTASSIUM,K 4.3 mEq/L (3.5-5.1)
[2025-02-08] MEDS: Cefepime 2 GM Vial IVPUSH ONE (17:49)
[2025-02-08] MEDS ORDERED: Ondansetron 4 MG/2 ML SDV IVPUSH PRN (17:51)
[2025-02-08 17:58] LABS: LACTIC ACID 1.4 mmol/L (0.4-2.0)
[2025-02-08] MEDS: metroNIDAZOLE/Normal Saline 500 MG in Premix Bag 1 BAG IV ONE (17:58)
[2025-02-08] MEDS: HYDROmorphone 0.5 MG/0.5 ML Syringe IVPUSH PRN (19:24)
[2025-02-08] MEDS: Acetaminophen/HYDROcodone 325-5 MG Tab PO PRN (20:19)
[2025-02-08 20:31] LABS: APPEARANCE,URINE CLEAR (Clear); BILIRUBIN,URINE NEGATIVE (Negative); COLOR,URINE YELLOW (Yellow); GLUCOSE,URINE NEGATIVE (Negative); KETONES,URINE 1+ (Negative); LEUKOCYTE ESTERASE,URINE NEGATIVE (Negative); NITRITE,URINE NEGATIVE (Negative); OCCULT BLOOD,URINE 1+ (Negative); PROTEIN,URINE 1+ (Negative); UROBILINOGEN,URINE 0.2 (0.2-1.0)
[2025-02-08 20:41] LABS: BACTERIA,URINE FEW /hpf (FEW); EPITHELIAL CELLS,URINE 0-5 /hpf (0-5); MUCUS,URINE FEW /hpf (FEW); WBC,URINE 0-5 /hpf (0-5)
[2025-02-08] MEDS: Calcium Carbonate 500 MG Tab.Chew PO ONE (22:00)
[2025-02-08] MEDS: HYDROmorphone 1 MG/ML Syringe IVPUSH PRN (23:09)
[2025-02-08] MEDS: Lactated Ringers 1,000 ML IV SCH (23:34)
[2025-02-09] MEDS: Cefepime 2 GM Vial IVPUSH SCH (02:05)
[2025-02-09] MEDS: metroNIDAZOLE/Normal Saline 500 MG in Premix Bag 1 BAG IV SCH (02:10)
[2025-02-09] MEDS: diphenhydrAMINE 50 MG/ML SDV IVPUSH ONE (03:30)
[2025-02-09] MEDS: EPINEPHrine 1 MG/ML SDV ONE (04:21)
[2025-02-09] MEDS: diphenhydrAMINE 50 MG/ML SDV ONE (04:21)
[2025-02-09] MEDS: EPINEPHrine 1 MG/ML SDV SUBCUT ONE (04:22)
[2025-02-09] MEDS: EPINEPHrine 1:10,000 1 MG/10 ML Syringe ONE (04:25)
[2025-02-09] MEDS ORDERED: Acetaminophen 325 MG Tab PO PRN (04:43)
[2025-02-09] MEDS ORDERED: Melatonin 3 MG Tab PO PRN (04:43)
[2025-02-09] MEDS ORDERED: diphenhydrAMINE 50 MG/ML SDV IVPUSH PRN (04:50)
[2025-02-09] MEDS ORDERED: methylPREDNISolone Sodium Succinate 125 MG/2 ML SDV IVPUSH PRN (04:51)
[2025-02-09] MEDS: Lactated Ringers 1,000 ML IV SCH (05:00)
[2025-02-09 05:31] LABS: BASOPHILS PERCENT AUTO 0.2 % (0.0-1.0); EOSINOPHILS PERCENT AUTO 0.1 % (0.0-6.0); HEMATOCRIT 44.3 % (42.0-52.0); HEMOGLOBIN 14.9 gm/dl (14.0-18.0); IMMATURE GRAN ABSOLUTE AUTO 0.08 K/mm3 (0.00-0.05); IMMATURE GRAN PERCENT AUTO 0.5 % (0.0-0.4); LYMPHOCYTES ABSOLUTE AUTO 1.2 K/mm3 (1.0-4.8); LYMPHOCYTES PERCENT AUTO 8.1 % (24.0-44.0); MEAN CORPUSCULAR HEMOGLOBIN 31.2 pg (28.0-32.0); MEAN CORPUSCULAR HGB CONC 33.6 g/dl (32.0-36.0); MEAN CORPUSCULAR VOLUME 92.9 fl (83.0-99.0); MONOCYTES ABSOLUTE AUTO 1.3 K/mm3 (0.0-0.8); MONOCYTES PERCENT AUTO 8.2 % (0.0-8.0); NEUTROPHILS ABSOLUTE AUTO 12.7 K/mm3 (1.8-7.7); NEUTROPHILS PERCENT AUTO 82.9 % (41.0-71.0); PLATELET COUNT,PLT 221 K/mm3 (150-400); RED BLOOD CELL COUNT 4.77 M/mm3 (4.52-5.90); WHITE BLOOD CELL COUNT,WBC 15.28 K/mm3 (3.9-11.3)
[2025-02-09 05:44] LABS: A/G RATIO 0.6 (1-2); ALANINE AMINOTRANSFERASE,ALT 34 U/L (16-63); ALBUMIN 2.6 g/dl (3.4-5.0); ALKALINE PHOSPHATASE 78 U/L (46-116); ANION GAP 15.9 (5-15); ASPARTATE AMNIOTRANSFERASE,AST 21 U/L (15-37); BILIRUBIN TOTAL 1.4 mg/dL (0.2-1.0); BLOOD UREA NITROGEN,BUN 14 mg/dL (7-18); CALCIUM 8.7 mg/dL (8.5-10.1); CARBON DIOXIDE,CO2 23 mEq/L (21-32); CHLORIDE,CL 102 mEq/L (98-107); CREATININE 1.4 mg/dL (0.7-1.3); EST CRCL DRUG DOSING (CG) 51.54 mL/min; ESTIMATED GFR 54 mL/min (>60); GLUCOSE RANDOM 116 mg/dL (70-99); POTASSIUM,K 3.9 mEq/L (3.5-5.1); SODIUM,NA 137 mEq/L (136-145)
[2025-02-09 06:07] LABS: MAGNESIUM 1.8 mg/dL (1.8-2.4); PHOSPHORUS 2.9 mg/dL (2.6-4.7)
[2025-02-09 06:23] LABS: C-REACTIVE PROTEIN > 25.00 mg/dL (<0.30)
[2025-02-09] MEDS: Heparin Sodium 5,000 Units/ML Vial SUBCUT SCH (08:27)
[2025-02-09] MEDS ORDERED: Meropenem 1 GM in Sodium Chloride 0.9% 100 ML IV SCH (08:30)
[2025-02-09] MEDS ORDERED: EPINEPHrine 0.3 MG/0.3 ML Pen Autoinjector IM PRN (08:36)
[2025-02-09] MEDS ORDERED: Albuterol/Ipratropium 3.0-0.5 MG/3 ML Neb Soln NEB PRN (08:37)
[2025-02-09] MEDS ORDERED: 50% Dextrose in Water 50 ML Syringe IVPUSH PRN (08:41)
[2025-02-09] MEDS ORDERED: hydrALAZINE 20 MG/ML SDV IVPUSH PRN (08:52)
[2025-02-09] MEDS ORDERED: Labetalol 100 MG/20 ML MDV IVPUSH PRN (08:52)
[2025-02-09] MEDS: Magnesium Sulfat/D5W 1GM/100ML 1 GM in Premix Bag 1 BAG IV ONE (09:04)
[2025-02-09] MEDS: Meropenem 500 MG in Sodium Chloride 0.9% 100 ML IV SCH (09:04)
[2025-02-09 09:26] LABS: HEMOGLOBIN A1C 5.8 %
[2025-02-09] MEDS: Calcium Carbonate 500 MG Tab.Chew PO PRN ×2 (09:41→15:16)
[2025-02-09] MEDS: Potassium Phosphates 30 MMOLE in Sodium Chloride 0.9% 500 ML IV ONE (09:41)
[2025-02-09] MEDS: Insulin Lispro 100 Unit/ML 3 ML KwikPen SUBCUT SCH (11:17)
[2025-02-09] MEDS: Pantoprazole 40 MG Tab.CR PO PRN (12:46)
[2025-02-09] MEDS: Famotidine 20 MG/2 ML SDV IVPUSH SCH (20:40)
[2025-02-10 05:46] LABS: BASOPHILS PERCENT AUTO 0.3 % (0.0-1.0); EOSINOPHILS ABSOLUTE AUTO 0.1 K/mm3 (0.0-0.4); IMMATURE GRAN ABSOLUTE AUTO 0.06 K/mm3 (0.00-0.05); IMMATURE GRAN PERCENT AUTO 0.6 % (0.0-0.4); LYMPHOCYTES PERCENT AUTO 9.2 % (24.0-44.0); MEAN CORPUSCULAR HEMOGLOBIN 30.8 pg (28.0-32.0); MEAN CORPUSCULAR HGB CONC 33.3 g/dl (32.0-36.0); MEAN CORPUSCULAR VOLUME 92.6 fl (83.0-99.0); MEAN PLATELET VOLUME 10.6 fl (9.4-12.4); MONOCYTES ABSOLUTE AUTO 0.8 K/mm3 (0.0-0.8); MONOCYTES PERCENT AUTO 7.1 % (0.0-8.0); NEUTROPHILS ABSOLUTE AUTO 8.8 K/mm3 (1.8-7.7); NEUTROPHILS PERCENT AUTO 81.8 % (41.0-71.0); PLATELET COUNT,PLT 206 K/mm3 (150-400); RED BLOOD CELL COUNT 4.32 M/mm3 (4.52-5.90); WHITE BLOOD CELL COUNT,WBC 10.77 K/mm3 (3.9-11.3)
[2025-02-10 05:52] LABS: A/G RATIO 0.4 (1-2); ALANINE AMINOTRANSFERASE,ALT 28 U/L (16-63); ALBUMIN 1.9 g/dl (3.4-5.0); ALKALINE PHOSPHATASE 76 U/L (46-116); ASPARTATE AMNIOTRANSFERASE,AST 16 U/L (15-37); BILIRUBIN TOTAL 0.8 mg/dL (0.2-1.0); BLOOD UREA NITROGEN,BUN 9 mg/dL (7-18); CARBON DIOXIDE,CO2 24 mEq/L (21-32); CHLORIDE,CL 102 mEq/L (98-107); EST CRCL DRUG DOSING (CG) 72.16 mL/min; ESTIMATED GFR 80 mL/min (>60); GLUCOSE RANDOM 80 mg/dL (70-99); HEMOGLOBIN 13.3 gm/dl (14.0-18.0); MAGNESIUM 1.5 mg/dL (1.8-2.4); PHOSPHORUS 1.8 mg/dL (2.6-4.7); PROTEIN TOTAL,TP 6.2 g/dl (6.4-8.2); SODIUM,NA 134 mEq/L (136-145)
[2025-02-10] MEDS: Ondansetron 4 MG/2 ML SDV IVPUSH PRN (06:12)
[2025-02-10 06:35] LABS: C-REACTIVE PROTEIN > 25.00 mg/dL (<0.30)
[2025-02-10] MEDS ORDERED: EPINEPHrine 1 MG/ML SDV IM PRN (07:49)
[2025-02-10] MEDS: Metoprolol Tartrate 25 MG Tab PO SCH (10:05)
[2025-02-10] MEDS: Pantoprazole 40 MG Tab.CR PO SCH (19:59)
[2025-02-10] MEDS: Pravastatin 20 MG Tab PO SCH (19:59)
[2025-02-11 04:42] LABS: HEMATOCRIT 39.7 % (42.0-52.0); HEMOGLOBIN 13.1 gm/dl (14.0-18.0); MEAN CORPUSCULAR HEMOGLOBIN 30.8 pg (28.0-32.0); MEAN CORPUSCULAR VOLUME 93.2 fl (83.0-99.0); PLATELET COUNT,PLT 224 K/mm3 (150-400); RED BLOOD CELL COUNT 4.26 M/mm3 (4.52-5.90); WHITE BLOOD CELL COUNT,WBC 8.44 K/mm3 (3.9-11.3)
[2025-02-11 05:12] LABS: A/G RATIO 0.4 (1-2); ALBUMIN 1.8 g/dl (3.4-5.0); BILIRUBIN TOTAL 0.5 mg/dL (0.2-1.0); BUN/CREATININE RATIO 9.1 (14-18); C-REACTIVE PROTEIN 15.69 mg/dL (<0.30); CALCIUM 8.2 mg/dL (8.5-10.1); CREATININE 1.1 mg/dL (0.7-1.3); EST CRCL DRUG DOSING (CG) 65.6 mL/min; PROTEIN TOTAL,TP 6.1 g/dl (6.4-8.2)
[2025-02-11] MEDS: Sodium Chloride 0.9% 100 ML ONE (09:03)
[2025-02-11] MEDS: Sennosides/Docusate Sodium 50-8.6 MG Tab PO PRN (20:52)
[2025-02-12 04:31] LABS: HEMATOCRIT 41.8 % (42.0-52.0); HEMOGLOBIN 13.5 gm/dl (14.0-18.0); MEAN CORPUSCULAR HEMOGLOBIN 30.1 pg (28.0-32.0); MEAN CORPUSCULAR HGB CONC 32.3 g/dl (32.0-36.0); MEAN CORPUSCULAR VOLUME 93.3 fl (83.0-99.0); MEAN PLATELET VOLUME 10.5 fl (9.4-12.4); PLATELET COUNT,PLT 263 K/mm3 (150-400); RED BLOOD CELL COUNT 4.48 M/mm3 (4.52-5.90); WHITE BLOOD CELL COUNT,WBC 8.36 K/mm3 (3.9-11.3)
[2025-02-12 04:57] LABS: A/G RATIO 0.5 (1-2); ALBUMIN 2.3 g/dl (3.4-5.0); ANION GAP 11.8 (5-15); BILIRUBIN TOTAL 0.4 mg/dL (0.2-1.0); BUN/CREATININE RATIO 10.8 (14-18); C-REACTIVE PROTEIN 9.91 mg/dL (<0.30); CALCIUM 8.7 mg/dL (8.5-10.1); CREATININE 1.3 mg/dL (0.7-1.3); EST CRCL DRUG DOSING (CG) 55.51 mL/min; POTASSIUM,K 3.8 mEq/L (3.5-5.1); PROTEIN TOTAL,TP 6.8 g/dl (6.4-8.2)
[2025-02-12] MEDS: metroNIDAZOLE 500 MG Tab PO SCH (08:17)
[2025-02-12 11:48] VITALS: BP 133/86; PULSE 93
== END 2025-02-12 12:04 | disposition home or self-care (01) | DRG 392 ==
LOC: JD.ED 15:49 → INTOOBSV 17:49 → JD.MS 17:49 → JD.ICU 02-09 04:43 → OBSVTOIN 02-09 04:43
PROVIDERS: ADMIT Student in an Organized Health Care Education/Training Program; ATTEND Internal Medicine
DX: K57.20 Diverticulitis of large intestine with perforation and abscess without bleeding (principal); I10 Essential (primary) hypertension; N17.9 Acute kidney failure, unspecified; J98.11 Atelectasis; I25.10 Atherosclerotic heart disease of native coronary artery without angina pectoris; E78.00 Pure hypercholesterolemia, unspecified; I25.2 Old myocardial infarction; N20.0 Calculus of kidney; I11.9 Hypertensive heart disease without heart failure; J45.909 Unspecified asthma, uncomplicated; K21.9 Gastro-esophageal reflux disease without esophagitis; Z91.018 Allergy to other foods; Z88.7 Allergy status to serum and vaccine; Z88.1 Allergy status to other antibiotic agents; N42.9 Disorder of prostate, unspecified; Z86.16 Personal history of COVID-19; Z98.890 Other specified postprocedural states; Z90.49 Acquired absence of other specified parts of digestive tract; Z88.8 Allergy status to other drugs, medicaments and biological substances; Z91.040 Latex allergy status; Z88.0 Allergy status to penicillin; Z79.899 Other long term (current) drug therapy; Z87.891 Personal history of nicotine dependence; Z95.5 Presence of coronary angioplasty implant and graft
CPT/HCPCS: 36415; 70450; 70450-26; 71045; 71045-26; 74177; 74177-26; 80053; 81001; 82947; 83036; 83605; 83690; 83735; 84100; 85025; 85027; 86140; 87040; 94761; 96361; 96374; 96375; 99284; 99285-25; A9270-GY; J0171; J0692; J1171; J1200; J1644; J1836; J2185; J2405; J3475; J3490; J7030; J7040; J7120

== ENCOUNTER 2025-04-08 06:47 | Day surgery (SDC) | payer MEDICARE, BC ==
[~2025-04-08 06:47] MED LIST changes: +Lactated Ringers 1,000 ML IV SCH; +propofoL 500 MG/50 ML 50 ML ONE
[2025-04-08] MEDS: Lactated Ringers 1,000 ML IV SCH (07:05)
[2025-04-08] MEDS ORDERED: dexmedeTOMIDine HCl 200 MCG/2 ML SDV ONE (07:37)
[2025-04-08 09:09] VITALS: BP 120/86; PULSE 56
== END 2025-04-08 09:00 | disposition home or self-care (01) ==
LOC: JD.SDS 06:47
PROVIDERS: ATTEND Surgery
DX: Z12.11 Encounter for screening for malignant neoplasm of colon (principal); D12.0 Benign neoplasm of cecum; D12.2 Benign neoplasm of ascending colon; K63.5 Polyp of colon; K57.20 Diverticulitis of large intestine with perforation and abscess without bleeding; K57.30 Diverticulosis of large intestine without perforation or abscess without bleeding; K64.8 Other hemorrhoids; E78.00 Pure hypercholesterolemia, unspecified; I10 Essential (primary) hypertension; I25.10 Atherosclerotic heart disease of native coronary artery without angina pectoris; Z88.8 Allergy status to other drugs, medicaments and biological substances; Z91.040 Latex allergy status; Z88.0 Allergy status to penicillin; Z91.09 Other allergy status, other than to drugs and biological substances; Z79.899 Other long term (current) drug therapy; Z86.0100 Personal history of colon polyps, unspecified
CPT/HCPCS: 45380; 88305; J2704; J7120; 00811; 99100